=== PATIENT | female | born 1945 | race Caucasian/White ===

== ENCOUNTER → 2016-11-22 | Outpatient (CLI) | payer MEDICARE, BC ==
[~2016-11-22] VITALS: Ht 154.9 cm; Wt 49.0 kg
[2016-11-22] VITALS (7 sets, daily range): BP systolic 90–114; BP diastolic 44–62
[~2016-11-22] MED LIST: ALPR0.5T6 PO; AMLO5TAB2 PO; ASPI-482 PO; ATEN50TA PO; BIMA2.5D EACHEYE; CEFAZOLIN 1GM IVPB FOR OMNI 50 ML IV ONE; CELE400C PO; CHOL10003 PO; DOCU-27 PO; DULO30CA2 PO; FENT1PAT15 TP; FENTANYL PF 250 MCG/5 ML VIAL. IV ONE; FENTANYL PF 250 MCG/5 ML VIAL. ONE; HYDR25TA9 PO; KETOROLAC TROMETHAMINE 30 MG/ML SYRINGE. IV PRN; LIDO700A4 TP; LIDOCAINE 1% / SOD BICARB 8.4% 20 ML VIAL. IJ ONE; LOSA100T6 PO; MIDAZOLAM HCL/PF 5 MG/5 ML VIAL IV ONE; MIDAZOLAM HCL/PF 5 MG/5 ML VIAL ONE; OXYC-323 PO; OXYC5TAB PO; PRED-220 PO; SENN-37 PO; SIMV40TA PO; TIMO5DRO5 EACHEYE; TIMO5DRO5 OP; TIMO5SOL4 OP; TOFA5TAB PO; VENTOLIN HFA18 GM INH
[2016-11-22 09:06] LABS: BASO % 0 % (0-3); EOS % 1 % (0-3); HEMOGLOBIN 12.1 g/dL (12.0-15.5); LYMPH # 0.4 x10^3/uL (1.0-4.8); LYMPH % 4 % (24-48); MEAN CORPUSCULAR HEMOGLOBIN 29 pg (25-35); MEAN CORPUSCULAR HGB CONC 34 g/dL (31-37); MEAN CORPUSCULAR VOLUME 87 fL (79-100); MONO % 8 % (0-9); NEUT % 88 % (31-73); PLATELET COUNT 333 x10^3/uL (140-400); RED BLOOD COUNT 4.13 x10^6/uL (3.50-5.40); RED CELL DISTRIBUTION WIDTH 14.5 % (11.5-14.5); WHITE BLOOD COUNT 10.4 x10^3/uL (4.0-11.0)
[2016-11-22 09:15] LABS: PROTHROMBIN TIME PATIENT 12.6 SEC (11.7-14.0)
[2016-11-22 09:19] LABS: CALCIUM 9.2 mg/dL (8.5-10.1); GFR 54.8; POTASSIUM 3.8 mmol/L (3.5-5.1)
[2016-11-22 10:13] LABS: % BASOS 1 % (0-3)
[2016-11-22 10:14] LABS: PLT ESTIMATE ADEQUATE (ADEQUATE)
--- NOTE | 2016-11-22 11:06 | PDOC ---
MODERATE SEDATION ASSESSMENT RISKS/ALTERNATIVES Risks/Alternatives Risks and alternatives of this type of sedation and procedure discussed with: RISK/ALTERNATIVES: Patient H & P ON CHART H & P H & P on chart and reviewed for co-morbid conditions and appropriate labs. H&P ON CHART: Yes STATUS PREG STATUS ASSESSED: N/A MEDS/ALLERGIES REVIEWED Meds/Allergies Reviewed Medications and Allergies including time and route of recently administered narcotics and sedatives. MEDS/ALLERGIES REVIEWED: Yes ASA RATING ASA RATING: III AIRWAY ASSESSMENT Airway Assessment Airway patency, oral function limitations, presence of caps, crowns, dentures, partials, and ability to extend neck assessed. AIRWAY ASSESSMENT: Yes MALLAMPATI SCORE MALLAMPATI SCORE: II PRE-SEDATION ASSESSMENT PRE-SEDATION ASSESSMENT: Yes OTONIEL ESCOBEDO MD Nov 22, 2016 11:06
--- NOTE | 2016-11-22 11:19 | PDOC1 ---
History and Physical Date of Procedure Date of Admission 11/22/16 Procedure Procedure Fluoro guided T7 vertebral body drill assisted core biopsy. Fluoro guided T7 vertebroplasty. Indication Indication 71 YO female with T7 compression fracture and severe mid T spine pain. H/o fall and h/o lung cancer----osteoporotic fracture vs met disease Past Medical History Past Medical History See Nursing Pre Procedure PMH Past Surgical History Past Surgical History See Nursing Pre procedure PSH Current Medications Current Medications Current Medications Lidocaine/Sodium Bicarbonate (Buffered Lidocaine 1%) 20 ml STK-MED ONCE IJ ; Start 11/22/16 at 09:50; Stop 11/22/16 at 09:51; Status DC Midazolam HCl (Versed) 5 mg STK-MED ONCE .ROUTE ; Start 11/22/16 at 09:59; Stop 11/22/16 at 10:00; Status DC Fentanyl Citrate 250 mcg 250 mcg STK-MED ONCE .ROUTE ; Start 11/22/16 at 09:59; Stop 11/22/16 at 10:00; Status DC Cefazolin Sodium (Ancef 1gm Ivpb For Omni) 50 ml @ As Directed STK-MED ONCE IV ; Start 11/22/16 at 09:59; Stop 11/22/16 at 10:00; Status DC Lidocaine/Sodium Bicarbonate (Buffered Lidocaine 1%) 20 ml 1X ONCE IJ ; Start 11/22/16 at 10:45; Stop 11/22/16 at 10:46; Status DC Midazolam HCl (Versed) 5 mg 1X ONCE IV ; Start 11/22/16 at 10:45; Stop at 10:46; Status DC Fentanyl Citrate 250 mcg 250 mcg 1X ONCE IV ; Start 11/22/16 at 10:45; Stop 08/29 at 10:46; Status DC Cefazolin Sodium (Ancef 1gm Ivpb For Omni) 50 ml @ 100 mls/hr 1X ONCE IV ; Start 11/22/16 at 10:45; Stop 11/22/16 at 11:14 Active Scripts Active Colace (Docusate Sodium) 100 Mg Capsule 1 Cap PO QHS FENTANYL 25mcg/hr (Fentanyl) 1 Each Patch.td72 1 Patch TP Q3DAYS Percocet 5-325 Mg Tablet (Oxycodone/Acetaminophen) 1 Each Tablet 1 Tab PO TID PRN Reported Senokot-S Tablet (Sennosides/Docusate Sodium) 1 Each Tablet 1 Each PO DAILY Timolol Maleate 10 Ml Drops 10 Ml OP DAILY Lumigan (Bimatoprost) 2.5 Ml Drops 1 Drop EACHEYE QHS Amlodipine Besylate 5 Mg Tablet 5 Mg PO DAILY Cymbalta (Duloxetine Hcl) 30 Mg Capsule.dr 1 Cap PO DAILY Vitamin D3 (Cholecalciferol (Vitamin D3)) 1,000 Unit Tablet 2,000 Unit PO DAILY Ventolin Hfa Inhaler (Albuterol Sulfate) 18 Gm Hfa.aer.ad 2 Puff INH Q4HRS Alprazolam 0.5 Mg Tablet 1 Tab PO QIDPRN PRN Aspir 81 (Aspirin) 81 Mg Tablet.dr 1 Tab PO DAILY Zocor (Simvastatin) 40 Mg Tablet 1 Tab PO DAILY Atenolol 50 Mg Tablet 1 Tab PO BID Losartan Potassium 100 Mg Tablet 1 Tab PO DAILY Allergies Allergies: Coded Allergies: azithromycin (Verified Allergy, Severe, Anaphylaxis, 09/26/14) erythromycin base (Verified Allergy, Severe, Anaphylaxis, 09/26/14) iodine (Verified Allergy, Severe, SWELLING, SOA, THROAT CLOSES UP, ) oxytetracycline (Verified Allergy, Severe, Anaphylaxis, 09/26/14) tetracycline (Verified Allergy, Severe, Anaphylaxis, 09/26/14) codeine (Verified Allergy, Intermediate, 09/26/14) egg (Verified Allergy, Intermediate, hives, "eggs in vaccines", 09/26/14) morphine (Verified Allergy, Intermediate, 06/01/16) hallucinations Physical Exam Vital Signs Vital Signs Date Time Temp Pulse Resp B/P Pulse Ox O2 Delivery O2 Flow Rate FiO2 11/22/16 09:26 97.1 62 16 114/61 96 Room Air 97.1 Diagnostic Data/Imaging Images [facility] CT chest examinations from 09/21/16 and 10/31/16 reviewed, confirming recent T7 compression fracture Assessment Assessment Recent T7 compression fracture, likely osteoporotic, but possibly pathologic (h/ o lung cancer). Severe Mid T spine pain. Problems: Plan Plan Fluoro gudied T7 vertebroplasty + bone biopsy. OTONIEL ESCOBEDO MD Nov 22, 2016 11:19
--- NOTE | 2016-11-22 11:36 | PDOC ---
Exam Management Liaison Management Liaison Justin Dynamicist Dynamicist B Cates Pre-Procedure Diagnosis Pre-Procedure Diagnosis 71 YO female with moderate T7 compression fracture, with severe pain. H/o fall and H/o lung cancer. T7 fx likely osteoporotic, but pathologic due to met lung cancer possible. Post-Procedure Diagnosis Post-Procedure Diagnosis Same Procedure Performed Procedure Performed Fluoro guided T7 vertebral body drill assisted core bx. Fluoro guided T7 vertebroplasty Type of Anesthesia Type of Anesthesia Local + Mod sedation Estimated Blood Loss EBL: Minimal Specimens Specimans 1 11G core bx sample to path in formalin Condition of Patient Condition of Patient Stable. No apparent compication, Disposition Disposition Home from [facility] post recovery, if no problems. F/u with referring MD. Full report to follow. OTONIEL ESCOBEDO MD Nov 22, 2016 11:36
--- NOTE | 2016-11-22 16:35 | RAD ---
Fluoroscopy guided T7 whole-body bone biopsy Fluoro guided T7 Vertebroplasty Indication: 8-year-old female with severe mid thoracic back pain and with history of lung cancer and with recent history of fall. Review of [facility] CT chest studies from 07/29 and 10/31/2016 revealed interval appearance of moderate T7 vertebral body compression. Given its patient's history, this fracture is not most likely osteoporotic/posttraumatic in nature. However, pathologic fracture secondary to lung cancer cannot be entirely excluded. Fluoroscopy guided T7 vertebral body biopsy for tissue diagnosis and fluoroscopy guided T7 vertebroplasty for pain relief are considered indicated. Fluoro time: 21.3 minutes Kerma-Area Product: 22 Gycm2 Moderate sedation: 42 minutes moderate sedation was provided utilizing a total of 3.5 mg percent and 175 mcg fentanyl, IV. The patient was appropriately monitored by a qualified independent observer throughout the course of moderate sedation. Antibiotic: A single dose of Ancef was administered within 1 hour of the procedure start time. Consent: The procedure was explained in its entirety to the patient and/or the patient's designated dental detail representative by a member of the treatment team. This included a discussion of risks and benefits and commonly accepted alternatives to the procedure, as well as expected consequences of no treatment at all. Discussion of risks included, but was not limited to, those that are most frequent and those that are rare, but possibly severe or life-threatening, as well as the possibility of unforeseen complications. Sterility: All elements of maximal sterile barrier technique, including the use of a cap, mask, sterile gown, sterile gloves, large sterile sheet, appropriate hand hygiene, and 2% chlorhexidine for cutaneous antisepsis (or acceptable alternative antiseptic per current guidelines) were utilized. Procedure: Informed consent was obtained from the patient. She was placed prone on the angiography table. Midline midthoracic spine was prepped and draped in the usual sterile fashion, utilizing all elements of maximal sterile barrier technique, as described above. Conscious sedation was provided with IV Versed and Fentanyl. 1 gram Ancef was given IV, prophylactically. T7 vertebral body bone biopsy: Using aseptic technique, local anesthesia, and direct fluoroscopic guidance, the 11-gauge needle from the [employer] power drill assisted bone biopsy system was successfully advanced through posterior cortex of right T7 pedicle into right posterior T7 vertebral body. Subsequently, utilizing strict fluoroscopic guidance, a single 11-gauge power drill assisted core biopsy sample from the T7 vertebral body was obtained. The biopsy sample was submitted in formalin to pathology. Attention was then turned to T7 vertebroplasty. T7 vertebroplasty: Using aseptic technique, local anesthesia, and direct fluoroscopic guidance, an 11-gauge vertebroplasty needle was successfully advanced into anterior midline of T7 vertebral body, via right transpedicular approach. Contrast opacified polymethylmethacrylate was then slowly and carefully introduced through the vertebroplasty needle, under strict fluoroscopic control. There was resulting good filling of the central and right side of the T7 vertebral body, without significant extraosseous extravasation of opacified cement. However, there was a possibility of opacified cement within left T7 vertebral body. Therefore, using aseptic technique, local anesthesia, and direct fluoroscopic guidance, an additional 11-gauge vertebroplasty needle was successfully introduced into left mid T7 vertebral body, via left transpedicular access. Contrast opacified polymethylmethacrylate was slowly and carefully introduced through this needle, producing satisfactory contrast opacification of left side of the T7 vertebral body, without abnormal extraosseous extension. The vertebroplasty needles were removed and a sterile dressings were applied. Patient tolerated the procedure well, without apparent complication. Impression: 1. Successful, uneventful fluoroscopy guided power drill assisted core biopsy of the T7 vertebral body, as described. 2. Successful, uneventful fluoro guided T7 vertebroplasty, performed via bilateral trans pedicular approach, as described.
--- NOTE | 2016-11-23 14:51 | PATHOLOGY ---
PATHOLOGY REPORT * * * * * * * * FINAL DIAGNOSIS: Segment of bone, T-7 vertebral body fluoroscopic-guided core biopsy: - Focal fragmentation of bony trabeculae and reactive bone formation. COMMENT: Sections of the T-7 vertebral body fluoroscopic-guided core biopsy reveal a segment of bone showing focal fragmentation of bony trabeculae and reactive bone formation. There is hematopoietic cellular marrow present showing trilineage hematopoiesis. There is no evidence of metastatic carcinoma. (JPM:mgjennie; d/t: 11/23/16) REPORT ELECTRONICALLY SIGNED BY: Ad Fernández M.D. DATE/TIME: 11/23/2016 14:50 * * * * * * * * GROSS PATHOLOGY: The specimen is received in formalin labeled "Karen Landaverde, T11 bone biopsy". Received is a needle core of pink-yost bone measuring 0.9 cm in length by 0.3 cm in diameter. The specimen is submitted entirely in cassette A1, following decalcification. (CAA; 11/22/2016) INITIAL CPT CODE(S): A; 01163, 97227 Professional services performed by [facility] [place] [address] Technical services performed by [facility] at [address] [place] [address], [facility] [address], [place] [address]. SPECIMEN(S) RECEIVED: A.T7 vertebral body biopsy CLINICAL HISTORY: T7 compression-osteoporotic vs metastatic lung cancer, probably osteoporotic fracture, history of lung cancer PATIENT: KAREN LANDAVERDE /AGE: 5 1945 (Age: 71) PATIENT #: [id number] ALT CASE #: SPECIMEN COLLECTION DATE: 11/22/2016 SPECIMEN RECEIVED DATE: 11/22/2016 [facility] - [id number] [place] [address] - PHONE: [phone] * * * END OF REPORT * * *
== END | disposition home or self-care (01) ==
LOC: INTRAD 08:26
PROVIDERS: ATTEND Internal Medicine Cardiovascular Disease
DX: G95.29 Other cord compression (principal); Z85.118 Personal history of other malignant neoplasm of bronchus and lung; I50.9 Heart failure, unspecified; E78.00 Pure hypercholesterolemia, unspecified; I10 Essential (primary) hypertension; J44.9 Chronic obstructive pulmonary disease, unspecified; Z90.710 Acquired absence of both cervix and uterus; N39.0 Urinary tract infection, site not specified; M19.90 Unspecified osteoarthritis, unspecified site; F41.9 Anxiety disorder, unspecified; F32.9 Major depressive disorder, single episode, unspecified; Z87.891 Personal history of nicotine dependence; F41.0 Panic disorder [episodic paroxysmal anxiety]
CPT/HCPCS: 22510; 36415; 80048; 85007; 85027; 85610; C1758; C1892; J0690; J2250; J3010; 88307; 88311

== ENCOUNTER → 2016-11-30 | Outpatient (CLI) | payer MEDICARE, BC ==
[2016-11-22 12:30] VITALS: BP 113/62
[~2016-11-30] MED LIST changes: -CEFAZOLIN 1GM IVPB FOR OMNI 50 ML IV ONE; -FENTANYL PF 250 MCG/5 ML VIAL. IV ONE; -FENTANYL PF 250 MCG/5 ML VIAL. ONE; -KETOROLAC TROMETHAMINE 30 MG/ML SYRINGE. IV PRN; -LIDOCAINE 1% / SOD BICARB 8.4% 20 ML VIAL. IJ ONE; -MIDAZOLAM HCL/PF 5 MG/5 ML VIAL IV ONE; -MIDAZOLAM HCL/PF 5 MG/5 ML VIAL ONE
--- NOTE | 2016-11-30 14:26 | RAD ---
Indication T7 compression fracture. Status post arthroplasty. AP and lateral views of the thoracic spine were obtained as well as a swimmer's note is made of a two-view examination of the chest prior to the kyphoplasty 10/20/2016. There is probable bony demineralization. Kyphoplasty changes are noted at T7. No complication is seen. An acute finding or unexpected finding in the thoracic spine is not seen. IMPRESSION: Kyphoplasty changes T7. No acute or unexpected finding seen
== END | disposition home or self-care (01) ==
LOC: RAD 13:29
PROVIDERS: ATTEND Radiology Diagnostic Radiology
DX: S22.068A Other fracture of T7-T8 thoracic vertebra, initial encounter for closed fracture (principal); X58.XXXA Exposure to other specified factors, initial encounter; Y93.89 Activity, other specified; Y92.89 Other specified places as the place of occurrence of the external cause; Y99.8 Other external cause status
CPT/HCPCS: 72072

== ENCOUNTER → 2017-03-22 | Outpatient (CLI) | payer MEDICARE, BC ==
[2016-11-22 12:30] VITALS: BP 113/62
[~2017-03-22] MED LIST changes: +IOHEXOL 240 MG/ML 50ML VIAL. IV ONE
--- NOTE | 2017-03-22 10:16 | RAD ---
Indication: Squamous cell carcinoma of the lung. Axial imaging through the chest, abdomen and pelvis was performed without intravenous contrast. Correlation is made with prior CT from 10/31/2016. CT chest: No axillary lymphadenopathy is seen. No definite hilar or mediastinal lymphadenopathy is detected. There is volume loss on the left. The area of consolidation in the anterior aspect of the left upper lobe appears smaller when compared with the exam from November 01, 2016. Previously noted irregular opacity along the lateral portion of the right upper lobe is also stable. The subpleural bullae or bleb in the right lower lobe is stable with some associated patchy parenchymal changes, perhaps atelectasis or scarring. There is some scarring or atelectasis in the left lower lobe posteriorly and left upper lobe as well. No new mass is seen. Postkyphoplasty changes in the midthoracic spine are noted since the prior exam. Impression: Overall stable to improved appearance of the chest when compared with exam from 10/31/2016. The area of parenchymal consolidation in the anterior left upper lobe has improved. No new abnormality is identified. CT abdomen and pelvis: No discrete liver mass is identified. The gallbladder is unremarkable. The pancreas and spleen are unremarkable. No adrenal mass is identified. The left kidney does contain a 2 to 3 mm nonobstructing calculus in the lower pole. The right kidney is unremarkable. Aorta is calcified but nonaneurysmal. The small and large bowel loops are normal caliber. There is no ascites. The bladder is unremarkable. No lymphadenopathy is seen. Impression: Nonobstructing calculus left kidney, lower pole. The study is otherwise unremarkable. There is no evidence of abdominal or pelvic metastatic disease. PQRS Compliance Statement: One or more of the following individualized dose reduction techniques were utilized for this examination: 1. Automated exposure control 2. Adjustment of the mA and/or kV according to patient size 3. Use of iterative reconstruction technique
== END | disposition home or self-care (01) ==
LOC: CT 10:33
PROVIDERS: ATTEND Internal Medicine Hematology & Oncology
DX: C34.92 Malignant neoplasm of unspecified part of left bronchus or lung (principal)
CPT/HCPCS: 71250; 74176

== ENCOUNTER → 2018-01-12 | Outpatient (CLI) | payer MEDICARE | END | disposition home or self-care (01) | LOC: CT 11:47 | DX: C34.92 Malignant neoplasm of unspecified part of left bronchus or lung (principal); J43.9 Emphysema, unspecified; I25.10 Atherosclerotic heart disease of native coronary artery without angina pectoris; N20.0 Calculus of kidney; Z98.890 Other specified postprocedural states | CPT/HCPCS: 71250 ==

== ENCOUNTER → 2018-02-08 | Outpatient (CLI) | payer MEDICARE | END | disposition home or self-care (01) | LOC: PETSC 08:23 | DX: C34.92 Malignant neoplasm of unspecified part of left bronchus or lung (principal) | CPT/HCPCS: 78815; A9552 ==

== ENCOUNTER 2018-02-16 06:53 | Outpatient (CLI) | payer MEDICARE ==
[2018-02-16 07:30] LABS: ADD MAN DIFF? NO
[2018-02-16 07:38] LABS: BASO # 0.1 x10^3/uL (0.0-0.2); BASO % 1 % (0-3); EOS # 0.1 x10^3/uL (0.0-0.7); EOS % 1 % (0-3); HEMATOCRIT 37.3 % (36.0-47.0); HEMOGLOBIN 12.2 g/dL (12.0-15.5); LYMPH # 0.9 x10^3/uL (1.0-4.8); LYMPH % 13 % (24-48); MEAN CORPUSCULAR HEMOGLOBIN 30 pg (25-35); MEAN CORPUSCULAR HGB CONC 33 g/dL (31-37); MEAN CORPUSCULAR VOLUME 90 fL (79-100); MONO % 14 % (0-9); NEUT % 71 % (31-73); PLATELET COUNT 338 x10^3/uL (140-400); RED BLOOD COUNT 4.12 x10^6/uL (3.50-5.40); RED CELL DISTRIBUTION WIDTH 13.5 % (11.5-14.5)
[2018-02-16 07:51] LABS: INR 0.9 (0.8-1.1)
[2018-02-16] MEDS ORDERED: LIDOCAINE WITH 8.4% SOD BICARB 3 ML DISP.SYRIN. (07:59)
[2018-02-16] MEDS ORDERED: MIDAZOLAM HCL/PF 2 MG/2 ML VIAL. (08:14)
[2018-02-16] MEDS ORDERED: fentaNYL PF VIAL 100 MCG/2 ML VIAL (08:14)
[2018-02-16] MEDS: LIDOCAINE WITH 8.4% SOD BICARB 3 ML DISP.SYRIN. IJ (09:22)
[2018-02-16] MEDS: MIDAZOLAM HCL/PF 2 MG/2 ML VIAL. IV (09:23)
[2018-02-16] MEDS: fentaNYL PF VIAL 100 MCG/2 ML VIAL IV (09:23)
[2018-02-16] MEDS: HEPARIN PF 500 UNIT/5 ML DISP.SYRIN. IV (14:03)
== END 2018-02-16 13:35 | disposition home or self-care (01) ==
LOC: INTRAD 06:53
DX: R91.1 Solitary pulmonary nodule (principal); I25.2 Old myocardial infarction; E78.00 Pure hypercholesterolemia, unspecified; I10 Essential (primary) hypertension; J44.9 Chronic obstructive pulmonary disease, unspecified; M19.90 Unspecified osteoarthritis, unspecified site; F41.0 Panic disorder [episodic paroxysmal anxiety]; F32.9 Major depressive disorder, single episode, unspecified; F41.9 Anxiety disorder, unspecified; Z79.01 Long term (current) use of anticoagulants; Z79.82 Long term (current) use of aspirin; Z88.1 Allergy status to other antibiotic agents; Z88.6 Allergy status to analgesic agent; Z91.012 Allergy to eggs; Z91.018 Allergy to other foods; Z88.7 Allergy status to serum and vaccine; Z98.42 Cataract extraction status, left eye; Z98.41 Cataract extraction status, right eye; Z85.118 Personal history of other malignant neoplasm of bronchus and lung; Z90.710 Acquired absence of both cervix and uterus; Z87.891 Personal history of nicotine dependence; Z82.49 Family history of ischemic heart disease and other diseases of the circulatory system; Z82.3 Family history of stroke
CPT/HCPCS: 32405; 36415; 71046; 77012; 85025; 85610; 99152; 99153; J2250; J3010

== ENCOUNTER 2018-04-13 16:06 | Emergency (ER) | payer MEDICARE ==
[2018-04-13] MEDS: NEOMY/BACITR/POLYMYXIN OINT PACKET. TP (16:48)
[2018-04-13] MEDS: LIDOCAINE 1%/EPI 1:100,000 20 ML VIAL. INJ (16:48)
== END 2018-04-13 18:15 | disposition home or self-care (01) ==
LOC: ER 18:15
DX: S51.811A Laceration without foreign body of right forearm, initial encounter (principal); Z88.1 Allergy status to other antibiotic agents; Z88.5 Allergy status to narcotic agent; Z88.8 Allergy status to other drugs, medicaments and biological substances; Z91.041 Radiographic dye allergy status; Z91.012 Allergy to eggs; Y28.8XXA Contact with other sharp object, undetermined intent, initial encounter; Y93.89 Activity, other specified; Y99.8 Other external cause status; Y92.89 Other specified places as the place of occurrence of the external cause
CPT/HCPCS: 12005; 12006; 73090; 99284-25; J3490

== ENCOUNTER 2018-05-31 13:58 | Emergency (ER) | payer MEDICARE ==
[2018-05-31 14:39] LABS: BILIRUBIN,URINE NEGATIVE (NEG); CLARITY,URINE CLEAR; COLOR,URINE YELLOW; GLUCOSE,URINE NEGATIVE (NEG); NITRITE,URINE NEGATIVE (NEG); PH,URINE 6.5; PROTEIN,URINE NEGATIVE (NEG-TRACE); UROBILINOGEN,URINE 0.2 mg/dL (0.2 mg/dL)
[2018-05-31 14:42] LABS: ADD MAN DIFF? YES; BASO # 0.1 x10^3/uL (0.0-0.2); BASO % 1 % (0-3); EOS % 0 % (0-3); HEMATOCRIT 40.1 % (36.0-47.0); HEMOGLOBIN 13.5 g/dL (12.0-15.5); LYMPH # 0.6 x10^3/uL (1.0-4.8); LYMPH % 7 % (24-48); MEAN CORPUSCULAR HEMOGLOBIN 30 pg (25-35); MEAN CORPUSCULAR HGB CONC 34 g/dL (31-37); MEAN CORPUSCULAR VOLUME 88 fL (79-100); MONO # 0.4 x10^3/uL (0.0-1.1); MONO % 4 % (0-9); NEUT # 8.9 x10^3uL (1.8-7.7); NEUT % 89 % (31-73); PLATELET COUNT 342 x10^3/uL (140-400); RED BLOOD COUNT 4.55 x10^6/uL (3.50-5.40); RED CELL DISTRIBUTION WIDTH 14.4 % (11.5-14.5)
[2018-05-31 14:55] LABS: ANION GAP 11 (6-14); BLOOD UREA NITROGEN 12 mg/dL (7-20); BUN/CREATININE RATIO 11 (6-20); CALCIUM 9.7 mg/dL (8.5-10.1); CARBON DIOXIDE 27 mmol/L (21-32); CHLORIDE 96 mmol/L (98-107); CREATININE 1.1 mg/dL (0.6-1.0); GFR 48.8; GLUCOSE 135 mg/dL (70-99); POTASSIUM 3.6 mmol/L (3.5-5.1); SODIUM 134 mmol/L (136-145)
[2018-05-31 14:56] LABS: AMYLASE 64 U/L (25-115)
[2018-05-31 15:03] LABS: ALBUMIN 3.5 g/dL (3.4-5.0); ALBUMIN/GLOBULIN RATIO 0.8 (1.0-1.7); ALK PHOS 130 U/L (46-116); ALT (SGPT) 19 U/L (14-59); AST (SGOT) 26 U/L (15-37); LIPASE 270 U/L (73-393); TOTAL BILIRUBIN 0.9 mg/dL (0.2-1.0); TOTAL PROTEIN 7.7 g/dL (6.4-8.2)
[2018-05-31 15:04] LABS: AMORPHOUS SEDIMENT,UR PRESENT /HPF; BACTERIA,URINE FEW /HPF (0-FEW); RBC,URINE 0 /HPF (0-2); SQUAMOUS EPITHELIAL CELL,UR MOD /LPF
[2018-05-31] MEDS: ONDANSETRON PF 4 MG/2 ML VIAL. IV (15:24)
[2018-05-31] MEDS: IV NORMAL SALINE 1000ML BAG 1,000 ML IV (15:24)
[2018-05-31 16:29] LABS: % BANDS 2 % (0-9); % LYMPHS 5 % (24-48); % SEGS 93 % (35-66); PLT ESTIMATE ADEQUATE (ADEQUATE)
== END 2018-05-31 17:40 | disposition home or self-care (01) ==
LOC: ER 13:58
DX: R10.13 Epigastric pain (principal); R19.7 Diarrhea, unspecified; R11.0 Nausea; I25.2 Old myocardial infarction; Z90.710 Acquired absence of both cervix and uterus; Z88.1 Allergy status to other antibiotic agents; Z88.5 Allergy status to narcotic agent; Z88.6 Allergy status to analgesic agent; Z91.041 Radiographic dye allergy status; Z91.012 Allergy to eggs; Z88.8 Allergy status to other drugs, medicaments and biological substances
CPT/HCPCS: 36415; 76705; 80053; 81001; 82150; 83690; 85007; 85025; 96361; 96374; 99285-25; J2405; J7030

== ENCOUNTER 2018-06-05 13:56 | Inpatient (IN) | payer MEDICARE ==
[2018-06-05 14:18] LABS: BASO % 0 % (0-3); EOS % 0 % (0-3); HEMATOCRIT 38.9 % (36.0-47.0); HEMOGLOBIN 13.2 g/dL (12.0-15.5); LYMPH # 0.7 x10^3/uL (1.0-4.8); LYMPH % 7 % (24-48); MEAN CORPUSCULAR HEMOGLOBIN 30 pg (25-35); MEAN CORPUSCULAR HGB CONC 34 g/dL (31-37); MEAN CORPUSCULAR VOLUME 88 fL (79-100); MONO # 0.4 x10^3/uL (0.0-1.1); MONO % 4 % (0-9); NEUT # 9.6 x10^3uL (1.8-7.7); NEUT % 89 % (31-73); PLATELET COUNT 326 x10^3/uL (140-400); RED BLOOD COUNT 4.43 x10^6/uL (3.50-5.40); RED CELL DISTRIBUTION WIDTH 14.3 % (11.5-14.5); WHITE BLOOD COUNT 10.8 x10^3/uL (4.0-11.0)
[2018-06-05 14:21] LABS: ADD MAN DIFF? YES
[2018-06-05 14:29] LABS: INR 0.9 (0.8-1.1); PARTIAL THROMBOPLASTIN TIME 26 SEC (24-38); PROTHROMBIN TIME PATIENT 12.1 SEC (11.7-14.0)
[2018-06-05] MEDS: IV NORMAL SALINE 1000ML BAG 1,000 ML IV ×3 (14:32→20:40)
[2018-06-05] MEDS: FAMOTIDINE 20 MG/2 ML VIAL IVP (14:32)
[2018-06-05 14:34] LABS: ANION GAP 7 (6-14); BLOOD UREA NITROGEN 13 mg/dL (7-20); BUN/CREATININE RATIO 13 (6-20); CALCIUM 9.9 mg/dL (8.5-10.1); CARBON DIOXIDE 32 mmol/L (21-32); CHLORIDE 98 mmol/L (98-107); GFR 54.5; GLUCOSE 133 mg/dL (70-99); POTASSIUM 3.5 mmol/L (3.5-5.1); SODIUM 137 mmol/L (136-145)
[2018-06-05 14:46] LABS: ALBUMIN 3.4 g/dL (3.4-5.0); ALBUMIN/GLOBULIN RATIO 0.8 (1.0-1.7); ALK PHOS 122 U/L (46-116); ALT (SGPT) 21 U/L (14-59); AST (SGOT) 24 U/L (15-37); MAGNESIUM 1.7 mg/dL (1.8-2.4); TOTAL BILIRUBIN 0.7 mg/dL (0.2-1.0); TOTAL PROTEIN 7.7 g/dL (6.4-8.2)
[2018-06-05 14:47] LABS: TROPONINI < 0.017 ng/mL (0.000-0.055)
[2018-06-05 14:48] LABS: CKMB MASS 1.1 ng/mL (0.0-3.6); CREATINE KINASE 39 U/L (26-192)
[2018-06-05 15:03] LABS: LIPASE 3120 U/L (73-393)
[2018-06-05 16:29] LABS: BILIRUBIN,URINE NEGATIVE (NEG); CLARITY,URINE CLEAR; COLOR,URINE YELLOW; GLUCOSE,URINE NEGATIVE (NEG); NITRITE,URINE NEGATIVE (NEG); PH,URINE 6.5; PROTEIN,URINE NEGATIVE (NEG-TRACE); UROBILINOGEN,URINE 0.2 mg/dL (0.2 mg/dL)
[2018-06-05 16:46] LABS: RBC,URINE OCC /HPF (0-2)
[2018-06-05 16:47] LABS: BACTERIA,URINE 0 /HPF (0-FEW); SQUAMOUS EPITHELIAL CELL,UR OCC /LPF; WBC,URINE 0 /HPF (0-4)
[2018-06-05 17:30] LABS: % BANDS 3 % (0-9); % LYMPHS 5 % (24-48); % MONOS 2 % (0-10); % SEGS 90 % (35-66)
[2018-06-05 17:31] LABS: PLT ESTIMATE ADEQUATE (ADEQUATE)
[2018-06-05] MEDS: fentaNYL PF VIAL 100 MCG/2 ML VIAL IV (18:04)
[2018-06-06] MEDS: IV NORMAL SALINE 1000ML BAG 1,000 ML IV ×2 (06:20→17:05)
[2018-06-06] MEDS: ONDANSETRON PF 4 MG/2 ML VIAL. IV (07:14)
[2018-06-06 11:33] LABS: ADD MAN DIFF? NO; BASO # 0.1 x10^3/uL (0.0-0.2); BASO % 1 % (0-3); EOS # 0.1 x10^3/uL (0.0-0.7); EOS % 1 % (0-3); HEMATOCRIT 39.4 % (36.0-47.0); HEMOGLOBIN 13.6 g/dL (12.0-15.5); LYMPH # 1.2 x10^3/uL (1.0-4.8); LYMPH % 12 % (24-48); MEAN CORPUSCULAR HEMOGLOBIN 30 pg (25-35); MEAN CORPUSCULAR HGB CONC 35 g/dL (31-37); MEAN CORPUSCULAR VOLUME 87 fL (79-100); MONO # 1.1 x10^3/uL (0.0-1.1); MONO % 11 % (0-9); NEUT # 7.8 x10^3uL (1.8-7.7); NEUT % 75 % (31-73); PLATELET COUNT 340 x10^3/uL (140-400); RED BLOOD COUNT 4.51 x10^6/uL (3.50-5.40); RED CELL DISTRIBUTION WIDTH 14.2 % (11.5-14.5); WHITE BLOOD COUNT 10.3 x10^3/uL (4.0-11.0)
[2018-06-06 12:00] LABS: ALBUMIN 3.4 g/dL (3.4-5.0); ALBUMIN/GLOBULIN RATIO 0.8 (1.0-1.7); ALK PHOS 123 U/L (46-116); ALT (SGPT) 18 U/L (14-59); AMYLASE 70 U/L (25-115); ANION GAP 10 (6-14); AST (SGOT) 21 U/L (15-37); BLOOD UREA NITROGEN 9 mg/dL (7-20); BUN/CREATININE RATIO 11 (6-20); CALCIUM 8.7 mg/dL (8.5-10.1); CARBON DIOXIDE 28 mmol/L (21-32); CHLORIDE 100 mmol/L (98-107); CREATININE 0.8 mg/dL (0.6-1.0); GFR 70.5; GLUCOSE 97 mg/dL (70-99); LIPASE 385 U/L (73-393); POTASSIUM 3.2 mmol/L (3.5-5.1); SODIUM 138 mmol/L (136-145); TOTAL BILIRUBIN 0.8 mg/dL (0.2-1.0); TOTAL PROTEIN 7.5 g/dL (6.4-8.2)
[2018-06-06 12:57] LABS: CHOLESTEROL 205 mg/dL (0-200); HDLC 53 mg/dL (40-60); LDLC 107 mg/dL (0-100); NON-HDL CHOLESTEROL 152 mg/dL (0-129); TRIGLYCERIDES 223 mg/dL (0-150); VLDLC 45 mg/dL (0-40)
[2018-06-06 12:59] LABS: CHOLESTEROL/HDL RATIO 3.9
[2018-06-06] MEDS: ASPIRIN ENTERIC COATED 81 MG TABLET.DR. PO (15:27)
[2018-06-06] MEDS: LOSARTAN POTASSIUM 50 MG TABLET. PO (15:27)
[2018-06-06] MEDS: ALPRAZolam 0.5 MG TABLET PO ×2 (15:28→23:00)
[2018-06-06] MEDS: amLODIPine BESYLATE 5 MG TABLET PO (15:28)
[2018-06-06] MEDS: predniSONE 10 MG TABLET PO (15:28)
[2018-06-06] MEDS: BRIMONIDINE 0.2% OPHTH SOLUTION 5ML BOTTLE. OU (20:39)
[2018-06-06] MEDS: TIMOLOL 0.5% OPHTH SOLUTION 5ML BOTTLE. OU (20:40)
[2018-06-06] MEDS: LATANOPROST 0.005% OPHTH SOLUTION 2.5ML BOTTLE. OU (20:40)
[2018-06-06] MEDS: FAMOTIDINE 20 MG TABLET. PO (20:41)
[2018-06-06] MEDS: DULoxetine HCL 30 MG CAPSULE.DR PO (20:41)
[2018-06-06] MEDS: ATENOLOL 50 MG TABLET. PO (20:41)
[2018-06-06] MEDS: ATORVASTATIN CALCIUM 20 MG TABLET PO (20:41)
[2018-06-07] MEDS: IV NORMAL SALINE 1000ML BAG 1,000 ML IV ×3 (02:00→17:37)
[2018-06-07] MEDS: ONDANSETRON PF 4 MG/2 ML VIAL. IV (08:24)
[2018-06-07] MEDS: DULoxetine HCL 30 MG CAPSULE.DR PO ×3 (08:30→21:48)
[2018-06-07] MEDS: CHOLECALCIFEROL (VITAMIN D3) 1,000 UNIT TABLET PO (08:30)
[2018-06-07] MEDS: ALPRAZolam 0.5 MG TABLET PO ×3 (08:30→21:52)
[2018-06-07] MEDS: ASPIRIN ENTERIC COATED 81 MG TABLET.DR. PO (08:30)
[2018-06-07] MEDS: predniSONE 10 MG TABLET PO (08:31)
[2018-06-07] MEDS: ATENOLOL 50 MG TABLET. PO ×2 (08:31→21:47)
[2018-06-07] MEDS: LOSARTAN POTASSIUM 50 MG TABLET. PO (08:31)
[2018-06-07] MEDS: amLODIPine BESYLATE 5 MG TABLET PO (08:32)
[2018-06-07] MEDS: TIMOLOL 0.5% OPHTH SOLUTION 5ML BOTTLE. OU ×2 (11:35→21:00)
[2018-06-07] MEDS: BRIMONIDINE 0.2% OPHTH SOLUTION 5ML BOTTLE. OU ×2 (11:36→21:00)
[2018-06-07 21:15] LABS: IGG1 463 mg/dL (248-810); IGG2 250 mg/dL (130-555); IGG3 81 mg/dL (15-102); IGG4 57 mg/dL (2-96); TOTAL IGG 697 mg/dL (700-1600)
[2018-06-07] MEDS: FAMOTIDINE 20 MG TABLET. PO (21:47)
[2018-06-07] MEDS: ATORVASTATIN CALCIUM 20 MG TABLET PO (21:48)
[2018-06-07] MEDS: LATANOPROST 0.005% OPHTH SOLUTION 2.5ML BOTTLE. OU (21:48)
[2018-06-08] MEDS: IV NORMAL SALINE 1000ML BAG 1,000 ML IV ×2 (04:14→16:55)
[2018-06-08] MEDS: ALPRAZolam 0.5 MG TABLET PO ×3 (05:04→22:44)
[2018-06-08 05:22] LABS: CA 19-9 170 U/mL (0-35)
[2018-06-08 05:40] LABS: ADD MAN DIFF? NO
[2018-06-08 05:43] LABS: BASO % 0 % (0-3); EOS # 0.1 x10^3/uL (0.0-0.7); EOS % 2 % (0-3); HEMATOCRIT 37.8 % (36.0-47.0); HEMOGLOBIN 12.8 g/dL (12.0-15.5); LYMPH # 0.9 x10^3/uL (1.0-4.8); LYMPH % 16 % (24-48); MEAN CORPUSCULAR HEMOGLOBIN 30 pg (25-35); MEAN CORPUSCULAR HGB CONC 34 g/dL (31-37); MEAN CORPUSCULAR VOLUME 88 fL (79-100); MONO # 0.9 x10^3/uL (0.0-1.1); MONO % 14 % (0-9); NEUT # 4.2 x10^3uL (1.8-7.7); NEUT % 68 % (31-73); PLATELET COUNT 306 x10^3/uL (140-400); RED CELL DISTRIBUTION WIDTH 14.4 % (11.5-14.5); WHITE BLOOD COUNT 6.1 x10^3/uL (4.0-11.0)
[2018-06-08 06:06] LABS: ANION GAP 8 (6-14); BLOOD UREA NITROGEN 11 mg/dL (7-20); CALCIUM 8.6 mg/dL (8.5-10.1); CARBON DIOXIDE 28 mmol/L (21-32); CHLORIDE 105 mmol/L (98-107); CREATININE 0.8 mg/dL (0.6-1.0); GFR 70.5; GLUCOSE 85 mg/dL (70-99); POTASSIUM 3.2 mmol/L (3.5-5.1); SODIUM 141 mmol/L (136-145)
[2018-06-08] MEDS: ATENOLOL 50 MG TABLET. PO ×2 (09:00→21:21)
[2018-06-08] MEDS: DULoxetine HCL 30 MG CAPSULE.DR PO ×3 (09:00→12:20)
[2018-06-08] MEDS: ONDANSETRON PF 4 MG/2 ML VIAL. IV ×2 (09:05→16:54)
[2018-06-08] MEDS: TIMOLOL 0.5% OPHTH SOLUTION 5ML BOTTLE. OU ×2 (12:20→21:00)
[2018-06-08] MEDS: BRIMONIDINE 0.2% OPHTH SOLUTION 5ML BOTTLE. OU ×2 (12:20→21:00)
[2018-06-08] MEDS: SINCALIDE 0.9 MCG in IV NORMAL SALINE 50ML 30 ML IV (15:16)
[2018-06-08] MEDS: LOSARTAN POTASSIUM 50 MG TABLET. PO (15:24)
[2018-06-08] MEDS: CHOLECALCIFEROL (VITAMIN D3) 1,000 UNIT TABLET PO (15:24)
[2018-06-08] MEDS: predniSONE 10 MG TABLET PO (15:24)
[2018-06-08] MEDS: ASPIRIN ENTERIC COATED 81 MG TABLET.DR. PO (15:27)
[2018-06-08] MEDS: amLODIPine BESYLATE 5 MG TABLET PO (15:27)
[2018-06-08] MEDS: ATORVASTATIN CALCIUM 20 MG TABLET PO (21:20)
[2018-06-08] MEDS: FAMOTIDINE 20 MG TABLET. PO (21:20)
[2018-06-08] MEDS: LATANOPROST 0.005% OPHTH SOLUTION 2.5ML BOTTLE. OU (21:21)
[2018-06-09] MEDS: IV NORMAL SALINE 1000ML BAG 1,000 ML IV ×3 (02:58→20:39)
[2018-06-09] MEDS: ALPRAZolam 0.5 MG TABLET PO ×2 (08:42→16:01)
[2018-06-09] MEDS: ATENOLOL 50 MG TABLET. PO ×2 (08:42→20:36)
[2018-06-09] MEDS: ASPIRIN ENTERIC COATED 81 MG TABLET.DR. PO (08:42)
[2018-06-09] MEDS: amLODIPine BESYLATE 5 MG TABLET PO (08:42)
[2018-06-09] MEDS: LOSARTAN POTASSIUM 50 MG TABLET. PO (08:43)
[2018-06-09] MEDS: CHOLECALCIFEROL (VITAMIN D3) 1,000 UNIT TABLET PO (08:43)
[2018-06-09] MEDS: predniSONE 10 MG TABLET PO (08:43)
[2018-06-09] MEDS: BRIMONIDINE 0.2% OPHTH SOLUTION 5ML BOTTLE. OU ×2 (08:43→20:37)
[2018-06-09] MEDS: TIMOLOL 0.5% OPHTH SOLUTION 5ML BOTTLE. OU ×2 (08:43→20:37)
[2018-06-09] MEDS: FAMOTIDINE 20 MG TABLET. PO (20:35)
[2018-06-09] MEDS: ATORVASTATIN CALCIUM 20 MG TABLET PO (20:35)
[2018-06-09] MEDS: LATANOPROST 0.005% OPHTH SOLUTION 2.5ML BOTTLE. OU (20:37)
[2018-06-10] MEDS: ALPRAZolam 0.5 MG TABLET PO ×4 (03:10→21:53)
[2018-06-10] MEDS: predniSONE 10 MG TABLET PO (07:51)
[2018-06-10] MEDS: amLODIPine BESYLATE 5 MG TABLET PO (07:51)
[2018-06-10] MEDS: ASPIRIN ENTERIC COATED 81 MG TABLET.DR. PO (07:51)
[2018-06-10] MEDS: CHOLECALCIFEROL (VITAMIN D3) 1,000 UNIT TABLET PO (07:51)
[2018-06-10] MEDS: ATENOLOL 50 MG TABLET. PO ×2 (07:52→20:33)
[2018-06-10] MEDS: LOSARTAN POTASSIUM 50 MG TABLET. PO (07:52)
[2018-06-10] MEDS: IV NORMAL SALINE 1000ML BAG 1,000 ML IV ×2 (10:13→20:00)
[2018-06-10] MEDS: TIMOLOL 0.5% OPHTH SOLUTION 5ML BOTTLE. OU ×2 (10:13→20:37)
[2018-06-10] MEDS: BRIMONIDINE 0.2% OPHTH SOLUTION 5ML BOTTLE. OU ×2 (10:13→20:37)
[2018-06-10] MEDS: BISACODYL 10 MG SUPP.RECT. PR (16:21)
[2018-06-10] MEDS: POLYETHYLENE GLYCOL 3350 17 GM PACKET. PO (16:24)
[2018-06-10] MEDS: LATANOPROST 0.005% OPHTH SOLUTION 2.5ML BOTTLE. OU (20:31)
[2018-06-10] MEDS: ATORVASTATIN CALCIUM 20 MG TABLET PO (20:32)
[2018-06-10] MEDS: FAMOTIDINE 20 MG TABLET. PO (20:32)
[2018-06-11] MEDS: IV NORMAL SALINE 1000ML BAG 1,000 ML IV ×2 (05:59→16:00)
[2018-06-11] MEDS: amLODIPine BESYLATE 5 MG TABLET PO (07:59)
[2018-06-11] MEDS: ALPRAZolam 0.5 MG TABLET PO ×2 (07:59→14:33)
[2018-06-11] MEDS: ASPIRIN ENTERIC COATED 81 MG TABLET.DR. PO (07:59)
[2018-06-11] MEDS: ATENOLOL 50 MG TABLET. PO (08:00)
[2018-06-11] MEDS: CHOLECALCIFEROL (VITAMIN D3) 1,000 UNIT TABLET PO (08:00)
[2018-06-11] MEDS: LOSARTAN POTASSIUM 50 MG TABLET. PO (08:01)
[2018-06-11] MEDS: BRIMONIDINE 0.2% OPHTH SOLUTION 5ML BOTTLE. OU (08:02)
[2018-06-11] MEDS: predniSONE 10 MG TABLET PO (08:02)
[2018-06-11] MEDS: TIMOLOL 0.5% OPHTH SOLUTION 5ML BOTTLE. OU (08:02)
[2018-06-11] MEDS: FAMOTIDINE 20 MG TABLET. PO (18:34)
== END 2018-06-11 18:39 | disposition home or self-care (01) | DRG 440 ==
LOC: ER 13:56 → 5 SOUTH 16:35
DX: K85.90 Acute pancreatitis without necrosis or infection, unspecified (principal); J44.9 Chronic obstructive pulmonary disease, unspecified; K59.00 Constipation, unspecified; K21.9 Gastro-esophageal reflux disease without esophagitis; K76.0 Fatty (change of) liver, not elsewhere classified; N20.0 Calculus of kidney; E05.90 Thyrotoxicosis, unspecified without thyrotoxic crisis or storm; M19.90 Unspecified osteoarthritis, unspecified site; I10 Essential (primary) hypertension; H35.30 Unspecified macular degeneration; N32.89 Other specified disorders of bladder; R91.1 Solitary pulmonary nodule; S32.511D Fracture of superior rim of right pubis, subsequent encounter for fracture with routine healing; M81.0 Age-related osteoporosis without current pathological fracture; X58.XXXD Exposure to other specified factors, subsequent encounter; F41.9 Anxiety disorder, unspecified; F32.9 Major depressive disorder, single episode, unspecified; H40.9 Unspecified glaucoma; E78.5 Hyperlipidemia, unspecified; I25.10 Atherosclerotic heart disease of native coronary artery without angina pectoris; M06.9 Rheumatoid arthritis, unspecified; Z85.118 Personal history of other malignant neoplasm of bronchus and lung; Z90.2 Acquired absence of lung [part of]; I25.2 Old myocardial infarction; Z90.710 Acquired absence of both cervix and uterus; Z82.49 Family history of ischemic heart disease and other diseases of the circulatory system; Z88.5 Allergy status to narcotic agent; Z88.1 Allergy status to other antibiotic agents; Z91.041 Radiographic dye allergy status; Z91.012 Allergy to eggs; Z86.73 Personal history of transient ischemic attack (TIA), and cerebral infarction without residual deficits; Z92.21 Personal history of antineoplastic chemotherapy; Z92.3 Personal history of irradiation; Z90.49 Acquired absence of other specified parts of digestive tract; Z98.42 Cataract extraction status, left eye; Z98.41 Cataract extraction status, right eye; Z79.899 Other long term (current) drug therapy; Z79.82 Long term (current) use of aspirin
CPT/HCPCS: 36415; 74176; 78226; 78306; 80048; 80053; 80061; 81001; 82150; 82553; 82787; 83605; 83690; 83735; 84484; 85007; 85025; 85610; 85730; 86301; 93005; 96361; 96374; 96375; 99285; 99285-25; A9503; A9537; J2405; J2805; J3010; J7030; J7512; S0028

== ENCOUNTER 2018-07-02 13:17 | Inpatient (IN) | payer MEDICARE ==
[~2018-07-02] VITALS: Ht 147.3 cm; Wt 49.1 kg
[~2018-07-02 13:17] MED LIST changes: +ACET-704 PO; +BRIM5DRO2 OP; +CEPH500T PO; +DOCU-109 PO; -DOCU-27 PO; -IOHEXOL 240 MG/ML 50ML VIAL. IV ONE; +LATA2.5D3 EACHEYE; +NYST100054 PO; +ONDA4TAB10 SL; -OXYC5TAB PO; +OXYC5TAB95 PO; +PRED20TA PO; +SIMV40TA3 PO; +TIMO10DR5 EACHEYE
[2018-07-02] MEDS ORDERED: IV NORMAL SALINE 1000ML BAG 1,000 ML IV ONE (14:45)
[2018-07-02] MEDS ORDERED: fentaNYL PF VIAL 100 MCG/2 ML VIAL IV ONE (14:45)
[2018-07-02] MEDS ORDERED: ONDANSETRON PF 4 MG/2 ML VIAL. IV ONE (14:45)
[2018-07-02 14:47] LABS: BILIRUBIN,URINE NEGATIVE (NEG); CLARITY,URINE CLEAR; COLOR,URINE YELLOW; NITRITE,URINE NEGATIVE (NEG); PH,URINE 6.5; PROTEIN,URINE NEGATIVE (NEG-TRACE); UROBILINOGEN,URINE 0.2 mg/dL (0.2 mg/dL)
[2018-07-02 14:55] LABS: BASO % 0 % (0-3); EOS % 0 % (0-3); HEMATOCRIT 39.7 % (36.0-47.0); HEMOGLOBIN 13.4 g/dL (12.0-15.5); LYMPH # 0.6 x10^3/uL (1.0-4.8); LYMPH % 7 % (24-48); MEAN CORPUSCULAR HEMOGLOBIN 30 pg (25-35); MEAN CORPUSCULAR HGB CONC 34 g/dL (31-37); MEAN CORPUSCULAR VOLUME 89 fL (79-100); MONO # 0.4 x10^3/uL (0.0-1.1); MONO % 5 % (0-9); NEUT # 7.7 x10^3uL (1.8-7.7); NEUT % 88 % (31-73); PLATELET COUNT 300 x10^3/uL (140-400); RED BLOOD COUNT 4.44 x10^6/uL (3.50-5.40); RED CELL DISTRIBUTION WIDTH 15.1 % (11.5-14.5); WHITE BLOOD COUNT 8.7 x10^3/uL (4.0-11.0)
[2018-07-02 14:57] LABS: BACTERIA,URINE 0 /HPF (0-FEW); RBC,URINE 0 /HPF (0-2); SQUAMOUS EPITHELIAL CELL,UR OCC /LPF; WBC,URINE 0 /HPF (0-4)
[2018-07-02 15:02] LABS: CALCIUM 10.4 mg/dL (8.5-10.1); GFR 54.5; POTASSIUM 4.2 mmol/L (3.5-5.1)
[2018-07-02 15:08] LABS: ALBUMIN 3.7 g/dL (3.4-5.0); ALBUMIN/GLOBULIN RATIO 0.9 (1.0-1.7)
[2018-07-02 15:17] LABS: % BANDS 4 % (0-9); % LYMPHS 5 % (24-48); % MONOS 5 % (0-10); % SEGS 86 % (35-66); PLT ESTIMATE ADEQUATE (ADEQUATE)
[2018-07-02] MEDS ORDERED: HYDR-971 PO (17:05)
--- NOTE | 2018-07-02 17:05 | PHYS DOC ---
Past Medical History Past Medical History: Arthritis, Cancer, Depression, Gallstones, Lung Disease, Pancreatitis Additional Past Medical Histor: lung cancer, RA Past Surgical History: Appendectomy, Hysterectomy, Oophorectomy, Tonsillectomy , Other Additional Past Surgical Histo: LUNG REMOVAL Alcohol Use: None Drug Use: None Adult General Chief Complaint Chief Complaint: ABDOMINAL PAIN HPI HPI Patient is a 73 year old F who presents with upper abdominal pain. Patient reports she was admitted about 3 weeks ago for pancreatitis. She reports she had a thorough workup and felt much better when she went home. Her symptoms started again about 3 days ago. Not as severe as last time, but progressively worsening. Review of Systems Review of Systems Constitutional: Denies fever or chills [] Eyes: Denies change in visual acuity, redness, or eye pain [] HENT: Denies nasal congestion or sore throat [] Respiratory: Denies cough or shortness of breath [] Cardiovascular: No additional information not addressed in HPI [] GI: Denies abdominal pain, nausea, vomiting, bloody stools or diarrhea [] : Denies dysuria or hematuria [] Musculoskeletal: Denies back pain or joint pain [] Integument: Denies rash or skin lesions [] Neurologic: Denies headache, focal weakness or sensory changes [] Endocrine: Denies polyuria or polydipsia [] All other systems were reviewed and found to be within normal limits, except as documented in this note. Current Medications Current Medications Current Medications Medications (Trade) Dose Ordered Sig/Cammy Start Time Stop Time Status Last Admin Dose Admin Fentanyl Citrate (Fentanyl 2ml Vial) 50 mcg 1X ONCE 07/02/18 14:45 07/02/18 14:46 DC 07/02/18 14:51 50 MCG Morphine Sulfate (Morphine Sulfate) 4 mg PRN Q2HR PRN 07/02/18 17:45 07/03/18 17:44 Ondansetron HCl (Zofran) 4 mg PRN Q8HRS PRN 07/02/18 17:45 07/03/18 17:44 Sodium Chloride 1,000 ml @ 1,000 mls/hr 1X ONCE 07/02/18 14:45 07/02/18 15:44 DC 07/02/18 14:50 1,000 MLS/HR Allergies Allergies Allergies Coded Allergies Type Severity Reaction Last Updated Verified azithromycin Allergy Severe Anaphylaxis 09/26/14 Yes erythromycin base Allergy Severe Anaphylaxis 09/26/14 Yes iodine Allergy Severe SWELLING, SOA, THROAT CLOSES UP 09/26/14 Yes oxytetracycline Allergy Severe Anaphylaxis 09/26/14 Yes tetracycline Allergy Severe Anaphylaxis 09/26/14 Yes codeine Allergy Intermediate 09/26/14 Yes egg Allergy Intermediate hives, "eggs in vaccines" 09/26/14 Yes morphine Allergy Intermediate 06/01/16 Yes Physical Exam Physical Exam Constitutional: Well developed, well nourished, no acute distress, non-toxic appearance. [] HENT: Normocephalic, atraumatic Eyes: PERRLA, EOMI, conjunctiva normal, no discharge. [] Neck: Normal range of motion, no tenderness, supple, no stridor. [] Cardiovascular:Heart rate regular rhythm, no murmur [] Lungs & Thorax: Bilateral breath sounds clear to auscultation [] Abdomen: Bowel sounds normal, soft, upper abdominal tenderness Skin: Warm, dry, no erythema, no rash. [] Neurologic: Alert and oriented X 3, normal motor function, normal sensory function, no focal deficits noted. [] Psychologic: Affect normal, judgement normal, mood normal. [] Current Patient Data Vital Signs Vital Signs Date Time Temp Pulse Resp B/P (MAP) Pulse Ox O2 Delivery O2 Flow Rate FiO2 07/02/18 14:51 22 95 Room Air 07/02/18 14:06 98.2 134/63 (86) 98.2 Lab Values Laboratory Tests Test 07/02/18 14:15 07/02/18 14:43 Urine Collection Type Unknown Urine Color Yellow Urine Clarity Clear Urine pH 6.5 Urine Specific [place] 1.010 Urine Protein Negative mg/dL (NEG-TRACE) Urine Glucose (UA) Negative mg/dL (NEG) Urine Ketones (Stick) Negative mg/dL (NEG) Urine Blood Negative (NEG) Urine Nitrite Negative (NEG) Urine Bilirubin Negative (NEG) Urine Urobilinogen Dipstick 0.2 mg/dL (0.2 mg/dL) Urine Leukocyte Esterase Negative (NEG) Urine RBC 0 /HPF (0-2) Urine WBC 0 /HPF (0-4) Urine Squamous Epithelial Cells Occ /LPF Urine Bacteria 0 /HPF (0-FEW) White Blood Count 8.7 x10^3/uL (4.0-11.0) Red Blood Count 4.44 x10^6/uL (3.50-5.40) Hemoglobin 13.4 g/dL (12.0-15.5) Hematocrit 39.7 % (36.0-47.0) Mean Corpuscular Volume 89 fL (79-100) Mean Corpuscular Hemoglobin 30 pg (25-35) Mean Corpuscular Hemoglobin Concent 34 g/dL (31-37) Red Cell Distribution Width 15.1 % (11.5-14.5) H Platelet Count 300 x10^3/uL (140-400) Neutrophils (%) (Auto) 88 % (31-73) H Lymphocytes (%) (Auto) 7 % (24-48) L Monocytes (%) (Auto) 5 % (0-9) Eosinophils (%) (Auto) 0 % (0-3) Basophils (%) (Auto) 0 % (0-3) Neutrophils # (Auto) 7.7 x10^3uL (1.8-7.7) Lymphocytes # (Auto) 0.6 x10^3/uL (1.0-4.8) L Monocytes # (Auto) 0.4 x10^3/uL (0.0-1.1) Eosinophils # (Auto) 0.0 x10^3/uL (0.0-0.7) Basophils # (Auto) 0.0 x10^3/uL (0.0-0.2) Segmented Neutrophils % 86 % (35-66) H Band Neutrophils % 4 % (0-9) Lymphocytes % 5 % (24-48) L Monocytes % 5 % (0-10) Platelet Estimate Adequate (ADEQUATE) Sodium Level 138 mmol/L (136-145) Potassium Level 4.2 mmol/L (3.5-5.1) Chloride Level 101 mmol/L (98-107) Carbon Dioxide Level 28 mmol/L (21-32) Anion Gap 9 (6-14) Blood Urea Nitrogen 17 mg/dL (7-20) Creatinine 1.0 mg/dL (0.6-1.0) Estimated GFR (Cockcroft-Gault) 54.5 BUN/Creatinine Ratio 17 (6-20) Glucose Level 127 mg/dL (70-99) H Calcium Level 10.4 mg/dL (8.5-10.1) H Total Bilirubin 1.0 mg/dL (0.2-1.0) Aspartate Amino Transferase (AST) 22 U/L (15-37) Alanine Aminotransferase (ALT) 22 U/L (14-59) Alkaline Phosphatase 105 U/L (46-116) Total Protein 8.0 g/dL (6.4-8.2) Albumin 3.7 g/dL (3.4-5.0) Albumin/Globulin Ratio 0.9 (1.0-1.7) L Lipase 327 U/L (73-393) Laboratory Tests 07/02/18 14:43 Laboratory Tests 07/02/18 14:43 EKG EKG [] Radiology/Procedures Radiology/Procedures [] Course & Med Decision Making Course & Med Decision Making Pertinent Labs and Imaging studies reviewed. (See chart for details) d/w Margie from GI, recommend MRI abdomen with CA919 markers and endoscopic US ( which cannot be done at this facility). d/w Dr. Smith, ok for patient to go home with pain meds and outpatient MRI. Plan: norco rx, f/u with PCP, return precautions reviewed. 1730 -- Dr. Smith saw patient in ER and decided to admit. Plan: admit, MRI Dragon Disclaimer Dragon Disclaimer This electronic medical record was generated, in whole or in part, using a voice recognition dictation system. Departure Departure Impression: Primary Impression: Abdominal pain Disposition: 09 ADMITTED INPATIENT Admitting Physician: Kwaku Smith Condition: STABLE Referrals: KWAKU SMITH MD (PCP) VAHID FISCHER MD Patient Instructions: Abdominal Pain Scripts Hydrocodone/Apap 5-325 (NORCO 5-325 TABLET) 1 Each Tablet 1 TAB PO PRN Q6HRS PRN for PAIN, #20 TAB 0 Refills Prov: SCOTT PINEDO MANAGER MANAGING 07/02/18 Problem Qualifiers Primary Impression: Abdominal pain Abdominal location: upper abdomen, unspecified Qualified Codes: R10.10 - Upper abdominal pain, unspecified SCOTT PINEDO MANAGER MANAGING Jul 02, 2018 17:05
[2018-07-02] MEDS ORDERED: MORPHINE SULFATE 4 MG/ML VIAL. IV PRN (17:45)
[2018-07-02] MEDS ORDERED: ONDANSETRON PF 4 MG/2 ML VIAL. IV PRN (17:45)
[2018-07-02] MEDS ORDERED: fentaNYL PF VIAL 100 MCG/2 ML VIAL IV PRN (18:00)
--- NOTE | 2018-07-02 19:04 | EKG ---
[facility] [address] [place] [address] Test Date: 2018-07-02 Test Time: 15:04:07 Pat Name: FRANCISCO NEFF Department: Room: 432 1 Gender: F Lieutenant Governor: : 1945 Requested By: SCOTT PINEDO Order Number: [id number] Reading MD: José Antonio Blake MD Measurements Intervals [place] Rate: 66 P: 42 CA: 118 QRS: 15 QRSD: 80 T: 65 QT: 430 QTc: 453 Interpretive Statements SINUS RHYTHM Electronically Signed On 07-03-2018 12:10:12 CDT by José Antonio Blake MD
--- NOTE | 2018-07-02 19:27 | PDOC1 ---
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 She has been having lots of problems and 3 weeks ago she came in with abdominal pain and had a lipase of over 3000. She was admitted and GI saw her and she was eventually discharged home. The patient now returns with severe abdominal pain, nausea and vomiting and has her chronic dyspnea. She denies any chest pains. She denies any palpitations. Past Medical History Cardiovascular: CAD, HTN, [place] Pulmonary: COPD, Other GI: Constipation, GERD, Other Heme/Onc: No pertinent hx Hepatobiliary: No pertinent hx Psych: No pertinent hx Musculoskeletal: Osteoarthritis, Weakness Rheumatologic: Rheumatoid arthritis Infectious disease: No pertinent hx Renal/: No pertinent hx Endocrine: Hyperthyroidism Past Surgical History Past Surgical History: Hysterectomy Family History Family History: Cancer, Coronary Artery Disease, Other Social History ALCOHOL: none Drugs: None Current Problem List Problem List Problems Medical Problems: (1) Abdominal pain Status: Acute Current Medications Current Medications Current Medications Fentanyl Citrate (Fentanyl 2ml Vial) 50 mcg 1X ONCE IV Last administered on at 14:51; Start 07/02/18 at 14:45; Stop 07/02/18 at 14:46; Status DC Sodium Chloride 1,000 ml @ 1,000 mls/hr 1X ONCE IV Last administered on at 14:50; Start 07/02/18 at 14:45; Stop 07/02/18 at 15:44; Status DC Ondansetron HCl (Zofran) 4 mg 1X ONCE IV Last administered on 07/02/18at 14:51 ; Start 07/02/18 at 14:45; Stop 07/02/18 at 14:46; Status DC Ondansetron HCl (Zofran) 4 mg PRN Q8HRS PRN IV NAUSEA/VOMITING; Start 07/02/18 at 17:45; Stop 07/03/18 at 17:44 Morphine Sulfate (Morphine Sulfate) 4 mg PRN Q2HR PRN IV PAIN; Start 07/02/18 at 17:45; Stop 07/03/18 at 17:44; Status Cancel Fentanyl Citrate (Fentanyl 2ml Vial) 50 mcg PRN Q2HRS PRN IV pain; Start at 18:00 Active Scripts Active [place] 5-325 Tablet (Acetaminophen/Hydrocodone Bitart) 1 Each Tablet 1 Tab PO PRN Q6HRS PRN Reported Latanoprost 2.5 Ml Drops 1 Drop EACHEYE QHS Combigan Eye Drops (Brimonidine Tartrate/Timolol) 5 Ml Drops 5 Ml OP DAILY Prednisone 20 Mg Tablet 10 Mg PO DAILY Cymbalta (Duloxetine Hcl) 30 Mg Capsule.dr 1 Cap PO TID Simvastatin 40 Mg Tablet 1 Tab PO QHS Amlodipine Besylate 5 Mg Tablet 5 Mg PO DAILY Vitamin D3 (Cholecalciferol (Vitamin D3)) 1,000 Unit Tablet 2,000 Unit PO DAILY Alprazolam 0.5 Mg Tablet 1 Tab PO QIDPRN PRN Aspir 81 (Aspirin) 81 Mg Tablet.dr 1 Tab PO DAILY Atenolol 50 Mg Tablet 1 Tab PO BID Losartan Potassium 100 Mg Tablet 1 Tab PO DAILY Allergies Allergies: Coded Allergies: azithromycin (Verified Allergy, Severe, Anaphylaxis, 09/26/14) erythromycin base (Verified Allergy, Severe, Anaphylaxis, 09/26/14) iodine (Verified Allergy, Severe, SWELLING, SOA, THROAT CLOSES UP, ) oxytetracycline (Verified Allergy, Severe, Anaphylaxis, 09/26/14) tetracycline (Verified Allergy, Severe, Anaphylaxis, 09/26/14) codeine (Verified Allergy, Intermediate, 09/26/14) egg (Verified Allergy, Intermediate, hives, "eggs in vaccines", 09/26/14) morphine (Verified Allergy, Intermediate, 06/01/16) hallucinations Physical Exam General: Alert, Oriented X3, Cooperative HEENT: PERRLA Lungs: Other (breast sounds are decreased, some fine crackles over mid colon.) Heart: S1S2, RRR, other (no changes in murmur) Abdomen: Other (abdomen is soft bowel sounds are present there is diffuse tenderness of the abdomen.) Extremities: No edema Vitals Vitals Vital Signs Date Time Temp Pulse Resp B/P (MAP) Pulse Ox O2 Delivery O2 Flow Rate FiO2 07/02/18 14:51 22 95 Room Air 07/02/18 14:06 98.2 134/63 (86) 98.2 Labs Labs Laboratory Tests Test 07/02/18 14:15 07/02/18 14:43 Urine Collection Type Unknown Urine Color Yellow Urine Clarity Clear Urine pH 6.5 Urine Specific [place] 1.010 Urine Protein Negative mg/dL (NEG-TRACE) Urine Glucose (UA) Negative mg/dL (NEG) Urine Ketones (Stick) Negative mg/dL (NEG) Urine Blood Negative (NEG) Urine Nitrite Negative (NEG) Urine Bilirubin Negative (NEG) Urine Urobilinogen Dipstick 0.2 mg/dL (0.2 mg/dL) Urine Leukocyte Esterase Negative (NEG) Urine RBC 0 /HPF (0-2) Urine WBC 0 /HPF (0-4) Urine Squamous Epithelial Cells Occ /LPF Urine Bacteria 0 /HPF (0-FEW) White Blood Count 8.7 x10^3/uL (4.0-11.0) Red Blood Count 4.44 x10^6/uL (3.50-5.40) Hemoglobin 13.4 g/dL (12.0-15.5) Hematocrit 39.7 % (36.0-47.0) Mean Corpuscular Volume 89 fL (79-100) Mean Corpuscular Hemoglobin 30 pg (25-35) Mean Corpuscular Hemoglobin Concent 34 g/dL (31-37) Red Cell Distribution Width 15.1 % (11.5-14.5) Platelet Count 300 x10^3/uL (140-400) Neutrophils (%) (Auto) 88 % (31-73) Lymphocytes (%) (Auto) 7 % (24-48) Monocytes (%) (Auto) 5 % (0-9) Eosinophils (%) (Auto) 0 % (0-3) Basophils (%) (Auto) 0 % (0-3) Neutrophils # (Auto) 7.7 x10^3uL (1.8-7.7) Lymphocytes # (Auto) 0.6 x10^3/uL (1.0-4.8) Monocytes # (Auto) 0.4 x10^3/uL (0.0-1.1) Eosinophils # (Auto) 0.0 x10^3/uL (0.0-0.7) Basophils # (Auto) 0.0 x10^3/uL (0.0-0.2) Segmented Neutrophils % 86 % (35-66) Band Neutrophils % 4 % (0-9) Lymphocytes % 5 % (24-48) Monocytes % 5 % (0-10) Platelet Estimate Adequate (ADEQUATE) Sodium Level 138 mmol/L (136-145) Potassium Level 4.2 mmol/L (3.5-5.1) Chloride Level 101 mmol/L (98-107) Carbon Dioxide Level 28 mmol/L (21-32) Anion Gap 9 (6-14) Blood Urea Nitrogen 17 mg/dL (7-20) Creatinine 1.0 mg/dL (0.6-1.0) Estimated GFR (Cockcroft-Gault) 54.5 BUN/Creatinine Ratio 17 (6-20) Glucose Level 127 mg/dL (70-99) Calcium Level 10.4 mg/dL (8.5-10.1) Total Bilirubin 1.0 mg/dL (0.2-1.0) Aspartate Amino Transf (AST/SGOT) 22 U/L (15-37) Alanine Aminotransferase (ALT/SGPT) 22 U/L (14-59) Alkaline Phosphatase 105 U/L (46-116) Total Protein 8.0 g/dL (6.4-8.2) Albumin 3.7 g/dL (3.4-5.0) Albumin/Globulin Ratio 0.9 (1.0-1.7) Lipase 327 U/L (73-393) Laboratory Tests Test 07/02/18 14:15 07/02/18 14:43 Urine Collection Type Unknown Urine Color Yellow Urine Clarity Clear Urine pH 6.5 Urine Specific [place] 1.010 Urine Protein Negative mg/dL (NEG-TRACE) Urine Glucose (UA) Negative mg/dL (NEG) Urine Ketones (Stick) Negative mg/dL (NEG) Urine Blood Negative (NEG) Urine Nitrite Negative (NEG) Urine Bilirubin Negative (NEG) Urine Urobilinogen Dipstick 0.2 mg/dL (0.2 mg/dL) Urine Leukocyte Esterase Negative (NEG) Urine RBC 0 /HPF (0-2) Urine WBC 0 /HPF (0-4) Urine Squamous Epithelial Cells Occ /LPF Urine Bacteria 0 /HPF (0-FEW) White Blood Count 8.7 x10^3/uL (4.0-11.0) Red Blood Count 4.44 x10^6/uL (3.50-5.40) Hemoglobin 13.4 g/dL (12.0-15.5) Hematocrit 39.7 % (36.0-47.0) Mean Corpuscular Volume 89 fL (79-100) Mean Corpuscular Hemoglobin 30 pg (25-35) Mean Corpuscular Hemoglobin Concent 34 g/dL (31-37) Red Cell Distribution Width 15.1 % (11.5-14.5) Platelet Count 300 x10^3/uL (140-400) Neutrophils (%) (Auto) 88 % (31-73) Lymphocytes (%) (Auto) 7 % (24-48) Monocytes (%) (Auto) 5 % (0-9) Eosinophils (%) (Auto) 0 % (0-3) Basophils (%) (Auto) 0 % (0-3) Neutrophils # (Auto) 7.7 x10^3uL (1.8-7.7) Lymphocytes # (Auto) 0.6 x10^3/uL (1.0-4.8) Monocytes # (Auto) 0.4 x10^3/uL (0.0-1.1) Eosinophils # (Auto) 0.0 x10^3/uL (0.0-0.7) Basophils # (Auto) 0.0 x10^3/uL (0.0-0.2) Segmented Neutrophils % 86 % (35-66) Band Neutrophils % 4 % (0-9) Lymphocytes % 5 % (24-48) Monocytes % 5 % (0-10) Platelet Estimate Adequate (ADEQUATE) Sodium Level 138 mmol/L (136-145) Potassium Level 4.2 mmol/L (3.5-5.1) Chloride Level 101 mmol/L (98-107) Carbon Dioxide Level 28 mmol/L (21-32) Anion Gap 9 (6-14) Blood Urea Nitrogen 17 mg/dL (7-20) Creatinine 1.0 mg/dL (0.6-1.0) Estimated GFR (Cockcroft-Gault) 54.5 BUN/Creatinine Ratio 17 (6-20) Glucose Level 127 mg/dL (70-99) Calcium Level 10.4 mg/dL (8.5-10.1) Total Bilirubin 1.0 mg/dL (0.2-1.0) Aspartate Amino Transf (AST/SGOT) 22 U/L (15-37) Alanine Aminotransferase (ALT/SGPT) 22 U/L (14-59) Alkaline Phosphatase 105 U/L (46-116) Total Protein 8.0 g/dL (6.4-8.2) Albumin 3.7 g/dL (3.4-5.0) Albumin/Globulin Ratio 0.9 (1.0-1.7) Lipase 327 U/L (73-393) VTE Prophylaxis Ordered VTE Prophylaxis Devices: Yes VTE Pharmacological Prophylaxi: No Assessment/Plan Assessment/Plan This patient with the multitude of problems comes in following a recent episode of pancreatitis. She is having nausea vomiting and abdominal pain. I'm going to admit her start her on some IV fluids and consult GI depending on the recommendations of the installer apprentice we will go from there. The situation was discussed with the patient and the family. JEAN GRAY MD Jul 02, 2018 19:27
[2018-07-02] MEDS ORDERED: LEXAPRO10 MG PO (21:19)
[2018-07-02 23:00] VITALS: BP 123/62
[2018-07-02] MEDS ORDERED: C.DIFF MED SCREEN BY RX. MC ONE (23:30)
[2018-07-03 03:00] VITALS: BP 115/49
[2018-07-03] MEDS ORDERED: HYDROcodone/APAP 5/325MG 1 TAB TABLET PO PRN (06:15)
[2018-07-03 07:00] VITALS: BP 143/78
[2018-07-03] MEDS: ASPIRIN ENTERIC COATED 81 MG TABLET.DR. PO SCH (08:33)
[2018-07-03] MEDS: LOSARTAN POTASSIUM 50 MG TABLET. PO SCH (08:33)
[2018-07-03] MEDS: CHOLECALCIFEROL (VITAMIN D3) 1,000 UNIT TABLET PO SCH (08:33)
[2018-07-03] MEDS: predniSONE 10 MG TABLET PO SCH ×2 (08:33→20:36)
[2018-07-03] MEDS: ATENOLOL 50 MG TABLET. PO SCH ×2 (08:33→20:36)
[2018-07-03] MEDS: amLODIPine BESYLATE 5 MG TABLET PO SCH (08:33)
[2018-07-03] MEDS: TIMOLOL 0.5% OPHTH SOLUTION 5ML BOTTLE. OU SCH (08:37)
[2018-07-03] MEDS: BRIMONIDINE 0.2% OPHTH SOLUTION 5ML BOTTLE. OU SCH (08:37)
--- NOTE | 2018-07-03 09:02 | PDOC2 ---
GI CONSULT Reason For Consult: Abd pain HPI: HPI: 73 y/o female w/ recent admission and GI eval for upper abd pain, nausea, and decreased appetite. Lipase was >3000, then quickly returned to normal. Pancreas normal in appearance on CT, GB was normal on US, and HIDA was normal. CA19-9 was elevated at 170 and IgG4 was normal. Etiology was unclear, but pain and appetite improved and she was discharged w/ consideration for abd MRI and/or outpt EUS. Back to ER last night w/ same issues. [place] better for awhile at home, then upper abd pain ("dull") recurred about 1 week ago. Worse w/ eating, has nausea w/o vomiting. No reflux/heartburn or dysphagia. No diarrhea or constipation. No bleeding. Has lost 8-9 pounds. Reports normal colonoscopy <10 years ago, no previous EGD. H/o RA on chronic prednisone, also CAD on ASA. Takes Tylenol for pain. Took acid-digital marketer last admission, did not continue at home. Ate a turkey sandwich last night. Lipase WNL this time. Abd MRI ordered. PMH: PMH: PR, CAD h/o angioplasty, HTN, HLD, COPD, lung cancer s/p [place]AT[place] lobectomy + chemo/ rad, RA, fatty liver, diverticulosis, macular degeneration, depression, anxiety , tonsillectomy, cataract removal, appendectomy, hysterectomy, RSO FH: Family History: Other (mother - cholecystectomy) Social History: Smoke: Quit ALCOHOL: none Drugs: None ROS: GEN: Denies fevers, chills, sweats HEENT: Denies blurred vision, sore throat CV: Denies chest pain RESP: Denies shortness of air, cough GI: Per HPI : Denies hematuria, dysuria ENDO: +weight loss NEURO: Denies confusion, dizziness MSK: Denies weakness, joint pain/swelling SKIN: Denies jaundice, pruritus Vitals: Vitals: Vital Signs Date Time Temp Pulse Resp B/P (MAP) Pulse Ox O2 Delivery O2 Flow Rate FiO2 07/03/18 08:46 Room Air 07/03/18 07:00 98.1 82 18 143/78 (99) 94 98.1 Labs: Labs: Laboratory Tests Test 07/02/18 14:15 07/02/18 14:43 Urine Collection Type Unknown Urine Color Yellow Urine Clarity Clear Urine pH 6.5 Urine Specific [place] 1.010 Urine Protein Negative mg/dL (NEG-TRACE) Urine Glucose (UA) Negative mg/dL (NEG) Urine Ketones (Stick) Negative mg/dL (NEG) Urine Blood Negative (NEG) Urine Nitrite Negative (NEG) Urine Bilirubin Negative (NEG) Urine Urobilinogen Dipstick 0.2 mg/dL (0.2 mg/dL) Urine Leukocyte Esterase Negative (NEG) Urine RBC 0 /HPF (0-2) Urine WBC 0 /HPF (0-4) Urine Squamous Epithelial Cells Occ /LPF Urine Bacteria 0 /HPF (0-FEW) White Blood Count 8.7 x10^3/uL (4.0-11.0) Red Blood Count 4.44 x10^6/uL (3.50-5.40) Hemoglobin 13.4 g/dL (12.0-15.5) Hematocrit 39.7 % (36.0-47.0) Mean Corpuscular Volume 89 fL (79-100) Mean Corpuscular Hemoglobin 30 pg (25-35) Mean Corpuscular Hemoglobin Concent 34 g/dL (31-37) Red Cell Distribution Width 15.1 % (11.5-14.5) Platelet Count 300 x10^3/uL (140-400) Neutrophils (%) (Auto) 88 % (31-73) Lymphocytes (%) (Auto) 7 % (24-48) Monocytes (%) (Auto) 5 % (0-9) Eosinophils (%) (Auto) 0 % (0-3) Basophils (%) (Auto) 0 % (0-3) Neutrophils # (Auto) 7.7 x10^3uL (1.8-7.7) Lymphocytes # (Auto) 0.6 x10^3/uL (1.0-4.8) Monocytes # (Auto) 0.4 x10^3/uL (0.0-1.1) Eosinophils # (Auto) 0.0 x10^3/uL (0.0-0.7) Basophils # (Auto) 0.0 x10^3/uL (0.0-0.2) Segmented Neutrophils % 86 % (35-66) Band Neutrophils % 4 % (0-9) Lymphocytes % 5 % (24-48) Monocytes % 5 % (0-10) Platelet Estimate Adequate (ADEQUATE) Sodium Level 138 mmol/L (136-145) Potassium Level 4.2 mmol/L (3.5-5.1) Chloride Level 101 mmol/L (98-107) Carbon Dioxide Level 28 mmol/L (21-32) Anion Gap 9 (6-14) Blood Urea Nitrogen 17 mg/dL (7-20) Creatinine 1.0 mg/dL (0.6-1.0) Estimated GFR (Cockcroft-Gault) 54.5 BUN/Creatinine Ratio 17 (6-20) Glucose Level 127 mg/dL (70-99) Calcium Level 10.4 mg/dL (8.5-10.1) Total Bilirubin 1.0 mg/dL (0.2-1.0) Aspartate Amino Transf (AST/SGOT) 22 U/L (15-37) Alanine Aminotransferase (ALT/SGPT) 22 U/L (14-59) Alkaline Phosphatase 105 U/L (46-116) Total Protein 8.0 g/dL (6.4-8.2) Albumin 3.7 g/dL (3.4-5.0) Albumin/Globulin Ratio 0.9 (1.0-1.7) Lipase 327 U/L (73-393) Allergies: Coded Allergies: azithromycin (Verified Allergy, Severe, Anaphylaxis, 09/26/14) erythromycin base (Verified Allergy, Severe, Anaphylaxis, 09/26/14) iodine (Verified Allergy, Severe, SWELLING, SOA, THROAT CLOSES UP, ) oxytetracycline (Verified Allergy, Severe, Anaphylaxis, 09/26/14) tetracycline (Verified Allergy, Severe, Anaphylaxis, 09/26/14) codeine (Verified Allergy, Intermediate, 09/26/14) egg (Verified Allergy, Intermediate, hives, "eggs in vaccines", 09/26/14) morphine (Verified Allergy, Intermediate, 06/01/16) hallucinations Medications: Current Medications Medications (Trade) Dose Ordered Sig/Cammy Route PRN Reason Start Time Stop Time Status Last Admin Dose Admin Fentanyl Citrate (Fentanyl 2ml Vial) 50 mcg 1X ONCE IV 07/02/18 14:45 07/02/18 14:46 DC 07/02/18 14:51 Sodium Chloride 1,000 ml @ 1,000 mls/hr 1X ONCE IV 07/02/18 14:45 07/02/18 15:44 DC 07/02/18 14:50 Ondansetron HCl (Zofran) 4 mg 1X ONCE IV 07/02/18 14:45 07/02/18 14:46 DC 07/02/18 14:51 Ondansetron HCl (Zofran) 4 mg PRN Q8HRS PRN IV NAUSEA/VOMITING 07/02/18 17:45 07/03/18 17:44 07/03/18 05:38 Fentanyl Citrate (Fentanyl 2ml Vial) 50 mcg PRN Q2HRS PRN IV pain 07/02/18 18:00 07/03/18 08:46 Pharmacy Consult (C.diff Med Screen By Rx) 1 each 1X ONCE MC 07/02/18 23:30 07/02/18 23:31 DC 07/02/18 23:30 Brimonidine Tartrate (Alphagan) 1 drop DAILY OU 07/03/18 09:00 07/03/18 08:37 Timolol Maleate (Timoptic 0.5% [facility]) 1 drop DAILY OU 07/03/18 09:00 07/03/18 08:37 Imaging: Imaging: Per HPI, reviewed in Months Of Me. PE: GEN: NAD, was asleep HEENT: Atraumatic, PERRL LUNGS: diminished anteriorly HEART: RRR ABD: epigastric discomfort to BUQ, soft, BS+ EXTREMITY: No edema SKIN: No rashes, no jaundice NEURO/PSYCH: A & O 3 A/P: A/P: Recurrent upper abd pain, nausea, weight loss H/o elevated lipase and CA19-9 w/ normal pancreas and GB on CT and US CRC screen - reports normal colonoscopy <10 years ago Diverticulosis Hepatic steatosis RA on prednisone, CAD on ASA, h/o lung cancer -- Reviewed w/ Dr. Clark. Plans for MRI, await this. Additionally, with recurrent issues, will proceed w/ EGD this afternoon. If unrevealing, could pursue outpt EUS (not performed at this facility). VICENTE BALL Jul 03, 2018 09:02
[2018-07-03 11:00] VITALS: BP 123/74
[2018-07-03] MEDS ORDERED: IV NORMAL SALINE 1000ML BAG 1,000 ML IV SCH (11:00)
[2018-07-03] MEDS: CITALOPRAM 20 MG TABLET. PO SCH (11:12)
[2018-07-03] MEDS ORDERED: PANTOPRAZOLE IV PUSH 40 MG VIAL. IVP ONE (13:30)
[2018-07-03] MEDS ORDERED: LIDOCAINE 2% PF Vial for OR 5 ML VIAL. ONE (13:54)
[2018-07-03] MEDS ORDERED: PROPOFOL 20 ML IV ONE (13:54)
--- NOTE | 2018-07-03 14:28 | PDOC4 ---
PROCEDURE Procedure EGD with bx abd pain anesthesia with propofol Findings- distal esophagitis (mild) , gastritis, erosive duodenitis with erosive changes Plna- PPI, avoid NSAIDs, check biopsies, proceed with pancreas w/u - MRCP and eventually EUS MIESHA SAEZ MD Jul 03, 2018 14:28
[2018-07-03] MEDS: PANTOPRAZOLE 40 MG TABLET.DR. PO SCH (14:30)
[2018-07-03] MEDS: SUCRALFATE 1 GM TABLET. PO SCH (17:09)
--- NOTE | 2018-07-03 18:33 | PDOC ---
PROGRESS NOTES Subjective Subjective Patient complains of a sore throat and is still a little groggy from the sedation for the procedures today. Objective Objective Vital Signs Date Time Temp Pulse Resp B/P (MAP) Pulse Ox O2 Delivery O2 Flow Rate FiO2 07/03/18 14:55 97.4 84 18 153/94 95 Room Air 97.4 Intake and Output 07/03/18 07:00 Intake Total 360 ml Balance 360 ml Intake Oral 360 ml # Voids 2 Physical Exam Physical Exam Patient moving air a little better but still has some coarse breath sounds. No changes in heart sounds. Abdomen is soft, bowel sounds were present less tenderness. Extremities no edema Assessment Assessment Agree with the present plan from GI. Continue with the antibiotics. Comment Review of Relevant I have reviewed the following items natalia (where applicable) has been applied. Labs Laboratory Tests Test 07/02/18 14:15 07/02/18 14:43 Urine Collection Type Unknown Urine Color Yellow Urine Clarity Clear Urine pH 6.5 Urine Specific [place] 1.010 Urine Protein Negative mg/dL (NEG-TRACE) Urine Glucose (UA) Negative mg/dL (NEG) Urine Ketones (Stick) Negative mg/dL (NEG) Urine Blood Negative (NEG) Urine Nitrite Negative (NEG) Urine Bilirubin Negative (NEG) Urine Urobilinogen Dipstick 0.2 mg/dL (0.2 mg/dL) Urine Leukocyte Esterase Negative (NEG) Urine RBC 0 /HPF (0-2) Urine WBC 0 /HPF (0-4) Urine Squamous Epithelial Cells Occ /LPF Urine Bacteria 0 /HPF (0-FEW) White Blood Count 8.7 x10^3/uL (4.0-11.0) Red Blood Count 4.44 x10^6/uL (3.50-5.40) Hemoglobin 13.4 g/dL (12.0-15.5) Hematocrit 39.7 % (36.0-47.0) Mean Corpuscular Volume 89 fL (79-100) Mean Corpuscular Hemoglobin 30 pg (25-35) Mean Corpuscular Hemoglobin Concent 34 g/dL (31-37) Red Cell Distribution Width 15.1 % (11.5-14.5) Platelet Count 300 x10^3/uL (140-400) Neutrophils (%) (Auto) 88 % (31-73) Lymphocytes (%) (Auto) 7 % (24-48) Monocytes (%) (Auto) 5 % (0-9) Eosinophils (%) (Auto) 0 % (0-3) Basophils (%) (Auto) 0 % (0-3) Neutrophils # (Auto) 7.7 x10^3uL (1.8-7.7) Lymphocytes # (Auto) 0.6 x10^3/uL (1.0-4.8) Monocytes # (Auto) 0.4 x10^3/uL (0.0-1.1) Eosinophils # (Auto) 0.0 x10^3/uL (0.0-0.7) Basophils # (Auto) 0.0 x10^3/uL (0.0-0.2) Segmented Neutrophils % 86 % (35-66) Band Neutrophils % 4 % (0-9) Lymphocytes % 5 % (24-48) Monocytes % 5 % (0-10) Platelet Estimate Adequate (ADEQUATE) Sodium Level 138 mmol/L (136-145) Potassium Level 4.2 mmol/L (3.5-5.1) Chloride Level 101 mmol/L (98-107) Carbon Dioxide Level 28 mmol/L (21-32) Anion Gap 9 (6-14) Blood Urea Nitrogen 17 mg/dL (7-20) Creatinine 1.0 mg/dL (0.6-1.0) Estimated GFR (Cockcroft-Gault) 54.5 BUN/Creatinine Ratio 17 (6-20) Glucose Level 127 mg/dL (70-99) Calcium Level 10.4 mg/dL (8.5-10.1) Total Bilirubin 1.0 mg/dL (0.2-1.0) Aspartate Amino Transf (AST/SGOT) 22 U/L (15-37) Alanine Aminotransferase (ALT/SGPT) 22 U/L (14-59) Alkaline Phosphatase 105 U/L (46-116) Total Protein 8.0 g/dL (6.4-8.2) Albumin 3.7 g/dL (3.4-5.0) Albumin/Globulin Ratio 0.9 (1.0-1.7) Lipase 327 U/L (73-393) Medications Current Medications Fentanyl Citrate (Fentanyl 2ml Vial) 50 mcg 1X ONCE IV Last administered on at 14:51; Start 07/02/18 at 14:45; Stop 07/02/18 at 14:46; Status DC Sodium Chloride 1,000 ml @ 1,000 mls/hr 1X ONCE IV Last administered on at 14:50; Start 07/02/18 at 14:45; Stop 07/02/18 at 15:44; Status DC Ondansetron HCl (Zofran) 4 mg 1X ONCE IV Last administered on 07/02/18at 14:51 ; Start 07/02/18 at 14:45; Stop 07/02/18 at 14:46; Status DC Ondansetron HCl (Zofran) 4 mg PRN Q8HRS PRN IV NAUSEA/VOMITING Last administered on 07/03/18at 05:38; Start 07/02/18 at 17:45; Stop 07/03/18 at 17:44 ; Status DC Morphine Sulfate (Morphine Sulfate) 4 mg PRN Q2HR PRN IV PAIN; Start 07/02/18 at 17:45; Stop 07/03/18 at 17:44; Status Cancel Fentanyl Citrate (Fentanyl 2ml Vial) 50 mcg PRN Q2HRS PRN IV SEVERE PAIN Last administered on 07/03/18at 08:46; Start 07/02/18 at 18:00 Pharmacy Consult (C.diff Med Screen By Rx) 1 each 1X ONCE MC Last administered on 07/02/18at 23:30; Start 07/02/18 at 23:30; Stop 07/02/18 at 23:31 ; Status DC Alprazolam (Xanax) 0.5 mg QIDPRN PRN PO ANXIETY / AGITATION; Start 07/03/18 at 06:15 Amlodipine Besylate (Norvasc) 5 mg DAILY PO ; Start 07/03/18 at 09:00 Aspirin (Ecotrin) 81 mg DAILY PO ; Start 07/03/18 at 09:00 Atenolol (Tenormin) 50 mg BID PO ; Start 07/03/18 at 09:00 Vitamin D (Vitamin D3) 2,000 unit DAILY PO ; Start 07/03/18 at 09:00 Acetaminophen/ Hydrocodone Bitart (Lortab 5/325) 1 tab PRN Q6HRS PRN PO MILD TO MODERATE PAIN; Start 07/03/18 at 06:15 Prednisone (Prednisone) 10 mg DAILY PO ; Start 07/03/18 at 09:00 Brimonidine Tartrate (Alphagan) 1 drop DAILY OU Last administered on 07/03/18at 08:37; Start 07/03/18 at 09:00 Citalopram Hydrobromide (CeleXA) 20 mg DAILYWLUN PO ; Start 07/03/18 at 12:00 Latanoprost (Xalatan) 1 drop QHS OU ; Start 07/03/18 at 21:00 Losartan Potassium (Cozaar) 100 mg DAILY PO ; Start 07/03/18 at 09:00 Atorvastatin Calcium (Lipitor) 20 mg QHS PO ; Start 07/03/18 at 21:00 Timolol Maleate (Timoptic 0.5% [facility]) 1 drop DAILY OU Last administered on 07/03at 08:37; Start 07/03/18 at 09:00 Sodium Chloride 1,000 ml @ 100 mls/hr Q10H IV Last administered on 07/03/18at 10:55; Start 07/03/18 at 11:00; Stop 07/03/18 at 17:10; Status DC Lorazepam (Ativan) 0.5 mg PRN Q3HRS PRN IV ANXIETY / AGITATION Last administered on 07/03/18at 12:41; Start 07/03/18 at 12:45 Pantoprazole Sodium (PROTONIX VIAL for IV PUSH) 40 mg 1X ONCE IVP Last administered on 07/03/18at 15:26; Start 07/03/18 at 13:30; Stop 07/03/18 at 13:31 ; Status DC Propofol 20 ml @ As Directed STK-MED ONCE IV ; Start 07/03/18 at 13:54; Stop at 14:00; Status DC Lidocaine HCl (Lidocaine Pf 2% Vial) 5 ml STK-MED ONCE .ROUTE ; Start 07/03/18 at 13:54; Stop 07/03/18 at 14:00; Status DC Pantoprazole Sodium (Protonix) 40 mg DAILYAC PO ; Start 07/03/18 at 14:30 Sucralfate (Carafate) 1 gm BIDAC PO Last administered on 07/03/18at 17:09; Start 07/03/18 at 16:30 Active Scripts Active [place] 5-325 Tablet (Acetaminophen/Hydrocodone Bitart) 1 Each Tablet 1 Tab PO PRN Q6HRS PRN Reported Lexapro (Escitalopram Oxalate) 10 Mg Tablet 1 Tab PO DAILYWLUN Latanoprost 2.5 Ml Drops 1 Drop EACHEYE QHS Combigan Eye Drops (Brimonidine Tartrate/Timolol) 5 Ml Drops 5 Ml OP DAILY Prednisone 20 Mg Tablet 10 Mg PO DAILY Simvastatin 40 Mg Tablet 1 Tab PO QHS Amlodipine Besylate 5 Mg Tablet 5 Mg PO DAILY Vitamin D3 (Cholecalciferol (Vitamin D3)) 1,000 Unit Tablet 2,000 Unit PO DAILY Alprazolam 0.5 Mg Tablet 1 Tab PO QIDPRN PRN Aspir 81 (Aspirin) 81 Mg Tablet.dr 1 Tab PO DAILY Atenolol 50 Mg Tablet 1 Tab PO BID Losartan Potassium 100 Mg Tablet 1 Tab PO DAILY Vitals/I & O Vital Sign - Last 24 Hours 07/02/18 07/02/18 07/02/18 07/02/18 19:00 20:00 21:00 21:30 Pulse 72 70 68 Resp 21 24 18 B/P (MAP) 144/68 (93) 120/60 (80) 132/59 (83) Pulse Ox 96 94 95 O2 Delivery Room Air Room Air Room Air Room Air 07/02/18 07/03/18 07/03/18 07/03/18 23:00 03:00 07:00 08:00 Temp 97.5 97.9 98.1 97.5 97.9 98.1 Pulse 72 72 82 Resp 18 16 18 B/P (MAP) 123/62 (82) 115/49 (71) 143/78 (99) Pulse Ox 95 93 94 O2 Delivery Room Air Room Air Room Air Room Air 07/03/18 07/03/18 07/03/18 07/03/18 08:46 09:16 11:00 13:30 Temp 97.0 97.0 Pulse 76 Resp 18 B/P (MAP) 123/74 (90) Pulse Ox 95 O2 Delivery Room Air Room Air Room Air Room Air 07/03/18 07/03/18 07/03/18 07/03/18 13:31 14:31 14:40 14:50 Temp 97.8 97.4 97.4 97.4 97.8 97.4 97.4 97.4 Pulse 68 75 74 75 Resp 20 20 20 18 B/P (MAP) 91/50 106/54 129/80 Pulse Ox 93 100 96 97 O2 Delivery Room Air Room Air Room Air 07/03/18 14:55 Temp 97.4 97.4 Pulse 84 Resp 18 B/P (MAP) 153/94 Pulse Ox 95 O2 Delivery Room Air Intake and Output 07/02/18 07/02/18 07/03/18 15:00 23:00 07:00 Intake Total 360 ml Balance 360 ml JEAN GRAY MD Jul 03, 2018 18:33
[2018-07-03 19:00] VITALS: BP 147/72
[2018-07-03] MEDS: ALPRAZolam 0.5 MG TABLET PO PRN (20:36)
[2018-07-03] MEDS ORDERED: LATANOPROST 0.005% OPHTH SOLUTION 2.5ML BOTTLE. OU SCH (21:00)
[2018-07-03] MEDS ORDERED: ATORVASTATIN CALCIUM 20 MG TABLET PO SCH (21:00)
[2018-07-03 23:00] VITALS: BP 99/60
[2018-07-04 03:00] VITALS: BP 106/61
[2018-07-04] MEDS: SUCRALFATE 1 GM TABLET. PO SCH ×2 (05:51→15:42)
[2018-07-04] MEDS: ALPRAZolam 0.5 MG TABLET PO PRN ×2 (05:51→14:37)
[2018-07-04] MEDS: PANTOPRAZOLE 40 MG TABLET.DR. PO SCH (05:51)
[2018-07-04 07:15] VITALS: BP 128/69
[2018-07-04] MEDS: CHOLECALCIFEROL (VITAMIN D3) 1,000 UNIT TABLET PO SCH (08:00)
[2018-07-04] MEDS: ASPIRIN ENTERIC COATED 81 MG TABLET.DR. PO SCH (08:00)
[2018-07-04] MEDS: LOSARTAN POTASSIUM 50 MG TABLET. PO SCH (08:01)
[2018-07-04] MEDS: amLODIPine BESYLATE 5 MG TABLET PO SCH (08:01)
[2018-07-04] MEDS: ATENOLOL 50 MG TABLET. PO SCH (08:01)
[2018-07-04] MEDS: predniSONE 10 MG TABLET PO SCH (08:02)
[2018-07-04] MEDS: TIMOLOL 0.5% OPHTH SOLUTION 5ML BOTTLE. OU SCH (08:03)
[2018-07-04] MEDS: BRIMONIDINE 0.2% OPHTH SOLUTION 5ML BOTTLE. OU SCH (08:03)
--- NOTE | 2018-07-04 11:05 | RAD ---
MRCP, 07/03/2018: HISTORY: Upper abdominal pain, pancreatitis, elevated lipase level Imaging was performed in axial and coronal planes utilizing a variety of imaging sequences including T2 weighted, fat suppressed T2 weighted, opposed phase gradient echo and diffusion-weighted sequences. Heavily T2 weighted MRCP sequences were also performed with 3-D MIP images reconstructions produced. No intrahepatic bile duct dilatation is seen. The proximal common hepatic duct at the danis hepatis is not clearly defined. Several calcifications were noted in this region on the recent CT study, likely arterial. Lack of clear visualization of the common hepatic duct at this level may be on a technical basis due to signal dropout related to these dense calcifications and/or respiratory motion artifact. The gallbladder is unremarkable. The common bile duct appears somewhat kinked and tortuous near the level of the cystic duct insertion site.The distal common bile duct is of normal caliber. The visualized portions of the pancreatic duct are unremarkable. No pancreatic abnormality is detected. There are several small subcentimeter bilateral renal cysts. There are also small low signal intensity nodules in the upper pole of the right kidney and lower pole the left kidney, most likely representing hemorrhagic cysts. IMPRESSION: 1. No evidence of bile duct obstruction. 2. Poor definition of the proximal common hepatic duct, likely on a technical basis. A stricture or obstructive process is unlikely considering the lack of proximal biliary dilatation. 3. Tortuosity and mild kinking of the mid common bile duct. 4. An ERCP may be considered for further evaluation, if clinically indicated. Electronically signed by: Sergio Rosa MD (07/04/2018 11:02 AM) [facility]
[2018-07-04 11:16] VITALS: BP 115/61
[2018-07-04] MEDS: CITALOPRAM 20 MG TABLET. PO SCH (12:16)
--- NOTE | 2018-07-04 13:54 | PDOC ---
Subjective: Subjective: [place] good this morning, then upper abd pain after coffee but able to tolerate breakfast. Objective: Objective: D/w Dr. Smith. Vital Signs: Vital Signs Date Time Temp Pulse Resp B/P (MAP) Pulse Ox O2 Delivery O2 Flow Rate FiO2 07/04/18 11:16 98.1 66 16 115/61 (79) 96 Room Air 98.1 Imaging: MRCP IMPRESSION: 1. No evidence of bile duct obstruction. 2. Poor definition of the proximal common hepatic duct, likely on a technical basis. A stricture or obstructive process is unlikely considering the lack of proximal biliary dilatation. 3. Tortuosity and mild kinking of the mid common bile duct. 4. An ERCP may be considered for further evaluation, if clinically indicated. EGD distal esophagitis (mild) , gastritis, erosive duodenitis with erosive changes PE: GEN: NAD LUNGS: CTAB HEART: RRR ABD: soft, not particularly tender NEURO/PSYCH: A & O 3 A/P: Recurrent upper abd pain, nausea, weight loss -EGD w/ erosive duodenitis, now on PPI and Carafate H/o elevated lipase and CA19-9 -normal pancreas on imaging RA on prednisone -- DC per primary. Continue Carafate and PPI, follow-up re: biopsy results. Outpt EUS @ [facility] or [facility] - our office will arrange. Discussed these plans w/ her in detail. VICENTE BALL Jul 04, 2018 13:54
[2018-07-04 15:03] VITALS: BP 117/61
--- NOTE | 2018-07-04 17:44 | PDOC3 ---
*Discharge Summary* Date of Admission: Jul 02, 2018 Date of Discharge: Jul 04, 2018 Admitting Diagnosis Abdominal pain Lung cancer Malnutrition Unable to tolerate by mouth route. Final Diagnosis Abdominal pain Lung cancer Erosive esophagitis, gastritis, duodenitis. Malnutrition CONSULTS GI Procedures EGD and MRCP Brief Hospital Course This patient is a very pleasant 73-year-old lady that had a long cancer and is status post lobectomy and has a multitude of problems. She has been having problems with her nutrition and comes in with severe abdominal pain and unable to tolerate the by mouth route due to pain as well as nausea. She appeared to be very weak and dehydrated as well as in a lot of stress from the pain. Her nausea was quite significant and kept her from being able to keep anything down. Recently she had an episode of pancreatitis when she came in with abdominal pain and a lipase that was over 3000. She had improved from that and had been discharged home but now she returns with nausea and abdominal pain. The lipase is only 300 this time. After I saw her in the emergency room he was decided to bring the patient in for further treatment and evaluation. I wanted to control the nausea as well as the pain and consult a sas sql developer to have her evaluated regards to this recurrent abdominal pain. IV fluids were started and the gastroenterologists were consulted and they saw the patient and he was decided to proceed with an EGD which was done. They saw inflammation and biopsies were done. The patient continued to complain of the abdominal pain and therefore the recommendation of the sas sql developer was to do an MRCP and this was done today and it did not show any dilatation of the ducts and therefore all that we haven't been able to find has been the inflammation of the esophagus, the stomach and the duodenum with an erosive duodenitis. In my opinion this patient needed to be in the hospital to receive medications, IV fluids and control of symptoms both the nausea as well as the pain and I felt that she should not be having the workup done as an outpatient but that we needed to control her situation better and this was the second admission with abdominal pain. Therefore the patient was kept in the hospital until the workup was done and her symptoms were controlled. Today the patient appears to feel better and has been started on pantoprazole as well as Carafate and her nausea has resolved. She has been instructed with regards to diet as well as follow-up medications and activity. To her home meds I have added pantoprazole 40 mg by mouth daily at bedtime and Carafate 1 g by mouth 4 times a day. Please see the chart for the results of the labs and tests. We have set up for the patient to be seen by GI and I will see her as an outpatient in 2 weeks. CONDITION AT DISCHARGE: Stable Home Meds Active Scripts Hydrocodone/Apap 5-325 (NORCO 5-325 TABLET) 1 Each Tablet, 1 TAB PO PRN Q6HRS PRN for PAIN, #20 TAB 0 Refills Prov:SCOTT PINEDO Balta INTERNAL SECURITY MANAGER 07/02/18 Reported Medications Escitalopram Oxalate (LEXAPRO) 10 Mg Tablet, 1 TAB PO DAILYWLUN, #90 TAB 3 Refills 07/02/18 Latanoprost (LATANOPROST) 2.5 Ml Drops, 1 DROP EACHEYE QHS, #7.5 ML 3 Refills 06/06/18 Brimonidine Tartrate/Timolol (COMBIGAN EYE DROPS) 5 Ml Drops, 5 ML OP DAILY, DROP 06/06/18 Prednisone (PREDNISONE) 20 Mg Tablet, 10 MG PO DAILY, TAB 04/16/18 Simvastatin (SIMVASTATIN) 40 Mg Tablet, 1 TAB PO QHS, #30 TAB 5 Refills 04/16/18 Amlodipine Besylate (AMLODIPINE BESYLATE) 5 Mg Tablet, 5 MG PO DAILY, TAB 03/07/16 Cholecalciferol (Vitamin D3) (VITAMIN D3) 1,000 Unit Tablet, 2000 UNIT PO DAILY 03/07/16 Alprazolam (ALPRAZOLAM) 0.5 Mg Tablet, 1 TAB PO QIDPRN PRN for ANXIETY / AGITATION 09/17/14 Aspirin (ASPIR 81) 81 Mg Tablet.dr, 1 TAB PO DAILY 09/17/14 Atenolol (ATENOLOL) 50 Mg Tablet, 1 TAB PO BID 09/17/14 Losartan Potassium (LOSARTAN POTASSIUM) 100 Mg Tablet, 1 TAB PO DAILY 09/17/14 Discontinued Reported Medications Duloxetine Hcl (CYMBALTA) 30 Mg Capsule.dr, 1 CAP PO TID, #30 CAP 5 Refills 04/16/18 Scheduled Amlodipine Besylate (Amlodipine Besylate), 5 MG PO DAILY, (Reported) Aspirin (Aspir 81), 1 TAB PO DAILY, (Reported) Atenolol (Atenolol), 1 TAB PO BID, (Reported) Brimonidine Tartrate/Timolol (Combigan Eye Drops), 5 ML OP DAILY, (Reported) Cholecalciferol (Vitamin D3) (Vitamin D3), 2,000 UNIT PO DAILY, (Reported) Escitalopram Oxalate (Lexapro), 1 TAB PO DAILYWLUN, (Reported) Latanoprost (Latanoprost), 1 DROP EACHEYE QHS, (Reported) Losartan Potassium (Losartan Potassium), 1 TAB PO DAILY, (Reported) Prednisone (Prednisone), 10 MG PO DAILY, (Reported) Simvastatin (Simvastatin), 1 TAB PO QHS, (Reported) Scheduled PRN Alprazolam (Alprazolam), 1 TAB PO QIDPRN PRN for ANXIETY / AGITATION, (Reported) Hydrocodone/Apap 5-325 ([place] 5-325 Tablet), 1 TAB PO PRN Q6HRS PRN for PAIN Discontinued Medications Duloxetine Hcl (Cymbalta), 1 CAP PO TID, (Reported) Scripts Hydrocodone/Apap 5-325 (NORCO 5-325 TABLET) 1 Each Tablet 1 TAB PO PRN Q6HRS PRN for PAIN, #20 TAB 0 Refills Prov: SCOTT PINEDO INTERNAL SECURITY MANAGER 07/02/18 Time Spent Total time spent with patient [] minutes for coordination of care, counseling, and education. JEAN GRAY MD Jul 04, 2018 17:44
--- NOTE | 2018-07-06 16:08 | PATHOLOGY ---
[facility] Accession Number: [id number] . 01 Material submitted: . PART A: ANTRUM BIOPSY PART B: DISTAL ESOPHAGUS BIOPSY . 01 Clinical history: . Abdominal pain, gastritis, esophagitis . 02 Diagnosis: A. Gastric biopsies, antrum: - Chronic gastritis, mild. . B. Esophageal biopsy, distal esophagus: - Segment of gastric mucosa showing mild chronic inflammation. [facility]/07/06/2018 . 02 Comment: Sections of the gastric antral biopsy show congestion and mild chronic inflammation. A properly controlled immunoperoxidase stain for Helicobacter is negative for Helicobacter organisms. There is no evidence of malignancy. . Sections of the distal esophageal biopsy reveal a segment of gastric mucosa showing mild chronic inflammation. There is no squamous esophageal mucosa. There is no evidence of Beltran's change, dysplasia, or malignancy. . ([facility] 07/06/2018) . 02 Electronically signed: . Ad Fernández MD, Pathologist NPI- [id number] . 01 Gross description: . . A. Received in formalin labeled "Karen Landaverde, antrum BX," are 3 segments of yost soft tissue measuring 1.1 x 0.6 x 0.3 cm in aggregate dimensions and ranging from 0.3 to 0.7 cm in maximum dimension. The specimen is submitted entirely in cassette A1. . B. Received in formalin labeled "Chema Landaverdeca, distal esophagus BX," is a single segment of yost soft tissue measuring 0.4 cm in maximum dimension. The specimen is submitted entirely in cassette B1. ([facility]; 07/04/2018) TOB/TOB . 02 Pathologist provided ICD-10: K29.50 . 02 CPT . 092213, 843178, [id number] Performed at: 01 [facility] [address], [place], [place] [id number] MD Brayden Rubio MD Phone: [phone] Performed at: 02 [facility] [address] [place], [place] [id number] MD Ad Fernández MD Phone: [phone]
== END 2018-07-04 17:50 | disposition home or self-care (01) | DRG 381 ==
LOC: ER 13:17 → 4 NORTH 17:40 → 5 NORTH 21:16
PROVIDERS: ADMIT Internal Medicine Cardiovascular Disease; ATTEND Internal Medicine Cardiovascular Disease
PROC: 0DB68ZX Excision of Stomach, Via Natural or Artificial Opening Endoscopic, Diagnostic (ICD-10-PCS; principal; 2018-07-02)
DX: K22.10 Ulcer of esophagus without bleeding (principal); E46 Unspecified protein-calorie malnutrition; K29.80 Duodenitis without bleeding; K29.70 Gastritis, unspecified, without bleeding; K21.0 Gastro-esophageal reflux disease with esophagitis; E78.5 Hyperlipidemia, unspecified; F32.9 Major depressive disorder, single episode, unspecified; F41.9 Anxiety disorder, unspecified; I10 Essential (primary) hypertension; I25.10 Atherosclerotic heart disease of native coronary artery without angina pectoris; J44.9 Chronic obstructive pulmonary disease, unspecified; K57.90 Diverticulosis of intestine, part unspecified, without perforation or abscess without bleeding; E05.90 Thyrotoxicosis, unspecified without thyrotoxic crisis or storm; M19.90 Unspecified osteoarthritis, unspecified site; J02.9 Acute pharyngitis, unspecified; K76.0 Fatty (change of) liver, not elsewhere classified; M06.9 Rheumatoid arthritis, unspecified; E86.0 Dehydration; Z79.52 Long term (current) use of systemic steroids; Z79.82 Long term (current) use of aspirin; Z79.899 Other long term (current) drug therapy; Z82.49 Family history of ischemic heart disease and other diseases of the circulatory system; Z85.118 Personal history of other malignant neoplasm of bronchus and lung; Z86.73 Personal history of transient ischemic attack (TIA), and cerebral infarction without residual deficits; Z90.710 Acquired absence of both cervix and uterus; Z90.2 Acquired absence of lung [part of]; Z68.22 Body mass index [BMI] 22.0-22.9, adult; Z88.8 Allergy status to other drugs, medicaments and biological substances; Z88.6 Allergy status to analgesic agent; Z91.012 Allergy to eggs; Z90.721 Acquired absence of ovaries, unilateral; Z90.49 Acquired absence of other specified parts of digestive tract; I25.2 Old myocardial infarction; Z92.21 Personal history of antineoplastic chemotherapy; Z92.3 Personal history of irradiation
CPT/HCPCS: 36415; 74181; 80053; 81001; 83690; 85007; 85025; 93005; 96374; C9113; J2001; J2060; J2405; J2704; J3010; J7030; J7512; 99285-25

== ENCOUNTER 2018-09-03 13:46 | Inpatient (IN) | payer MEDICARE ==
[~2018-09-03] VITALS: Ht 165.1 cm; Wt 39.7 kg
[~2018-09-03 13:46] MED LIST changes: -AMLO5TAB2 PO; +AMLO5TAB7 PO; +HYDR-971 PO; +LEXAPRO10 MG PO; -LOSA100T6 PO; +LOSA100T7 PO; +METO10TA81 PO; +ONDA4TAB7 PO; +PANT20TA2 PO; +SUCR1TAB35 PO
[2018-09-03 15:00] VITALS: BP 114/63
[2018-09-03] MEDS ORDERED: SUCR1TAB PO (15:17)
[2018-09-03] MEDS ORDERED: ALPR0.5T6 PO (15:17)
[2018-09-03] MEDS ORDERED: SIMV40TA PO (15:17)
[2018-09-03] MEDS ORDERED: LOSA100T2 PO (15:17)
[2018-09-03] MEDS ORDERED: ATEN50TA PO (15:17)
[2018-09-03] MEDS: SUCRALFATE 1 GM TABLET. PO SCH ×2 (16:10→20:59)
[2018-09-03] MEDS: ALPRAZolam 0.5 MG TABLET PO SCH ×2 (16:10→21:01)
[2018-09-03] MEDS: amLODIPine BESYLATE 5 MG TABLET PO SCH (16:11)
[2018-09-03 16:13] LABS: BASO % 0 % (0-3); EOS % 0 % (0-3); HEMATOCRIT 38.2 % (36.0-47.0); HEMOGLOBIN 12.8 g/dL (12.0-15.5); LYMPH # 0.6 x10^3/uL (1.0-4.8); LYMPH % 8 % (24-48); MEAN CORPUSCULAR HEMOGLOBIN 29 pg (25-35); MEAN CORPUSCULAR HGB CONC 34 g/dL (31-37); MEAN CORPUSCULAR VOLUME 88 fL (79-100); MONO # 0.5 x10^3/uL (0.0-1.1); MONO % 6 % (0-9); NEUT # 6.8 x10^3uL (1.8-7.7); NEUT % 85 % (31-73); PLATELET COUNT 270 x10^3/uL (140-400); RED BLOOD COUNT 4.36 x10^6/uL (3.50-5.40); RED CELL DISTRIBUTION WIDTH 12.9 % (11.5-14.5)
[2018-09-03] MEDS: ATENOLOL 50 MG TABLET. PO SCH (16:13)
[2018-09-03] MEDS: predniSONE 10 MG TABLET PO SCH (16:13)
[2018-09-03] MEDS: ASPIRIN ENTERIC COATED 81 MG TABLET.DR. PO SCH (16:14)
[2018-09-03] MEDS: CHOLECALCIFEROL (VITAMIN D3) 1,000 UNIT TABLET PO SCH (16:14)
[2018-09-03] MEDS: LOSARTAN POTASSIUM 50 MG TABLET. PO SCH (16:15)
[2018-09-03] MEDS: CITALOPRAM 20 MG TABLET. PO SCH (16:17)
[2018-09-03] MEDS: IV 1/2 NORMAL SALINE 1,000 ML IV SCH (16:18)
[2018-09-03 16:36] LABS: ALBUMIN 3.2 g/dL (3.4-5.0); ALBUMIN/GLOBULIN RATIO 0.9 (1.0-1.7); CALCIUM 9.1 mg/dL (8.5-10.1); CREATININE 0.8 mg/dL (0.6-1.0); GFR 70.5; POTASSIUM 4.8 mmol/L (3.5-5.1); TOTAL BILIRUBIN 0.6 mg/dL (0.2-1.0); TOTAL PROTEIN 6.7 g/dL (6.4-8.2)
[2018-09-03 16:43] LABS: % BASOS 1 % (0-3); % LYMPHS 4 % (24-48); % MONOS 4 % (0-10); % SEGS 91 % (35-66)
[2018-09-03 16:51] LABS: PLT ESTIMATE ADEQUATE (ADEQUATE)
--- NOTE | 2018-09-03 17:04 | RAD ---
CT head without intravenous contrast History: Altered mental status. Cancer history. Comparison: MR brain April 17, 2018. Technique: Axial images are obtained of the head from the skull base through the vertex without IV contrast. Exposure: One or more of the following individualized dose reduction techniques were utilized for this examination: 1. Automated exposure control 2. Adjustment of the mA and/or kV according to patient size 3. Use of iterative reconstruction technique Findings: The ventricles are appropriate in size, shape, and location for the patient's age. No obvious intracranial mass, mass-effect, midline shift, hemorrhage or obvious acute infarction is identified. Basilar cisterns are patent. There is a small focus of low-attenuation involving the left occipitoparietal junction, identified on previous study, compatible with old infarction. Mild nonspecific white matter low-attenuation seen, probably from chronic microvascular ischemic disease. Bone windows demonstrate no acute calvarial abnormality. The visualized paranasal sinuses appear clear. Impression: 1. No acute intracranial process. Please note that CT can be relatively insensitive to acute ischemic infarction for up to 24 hours after symptom onset. 2. 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 3. Nonspecific white matter changes, probably from chronic microvascular ischemic disease. Electronically signed by: Erasmo Villegas MD (09/03/2018 5:00 PM) [facility]
[2018-09-03] MEDS ORDERED: ACETAMINOPHEN 325 MG TABLET. PO PRN (17:15)
--- NOTE | 2018-09-03 17:22 | RAD ---
CT of the chest without contrast, 09/03/2018: HISTORY: Lung cancer history Noncontrast scans were obtained as requested. Comparison is made to a study from 07/26/2018. By history there has been a previous left upper lobectomy. Infiltrate in the posterior aspect of the left upper chest is unchanged. There are reticular/linear opacities in the left lung base which are also unchanged and probably represent scars. There are moderate emphysematous changes in both lungs with scattered parenchymal scars. A peripheral linear opacity in the right upper lobe seen on image 19 of series #2 is unchanged and may be a scar. There is an 11 x 5 mm part solid opacity in the right middle lobe as seen on image 33 of series #2. It has increased slightly in size since 07/26/2018. There is a 1 cm part solid opacity in the posterior aspect of the right lower lobe abutting the pleura, as seen on axial image 43 of series #2, which appears to be slightly larger than on the 07/26/2018 exam. A right Port-A-Cath extends into the inferior aspect of the superior vena cava. There is extensive calcific plaquing of the aorta and its branches including the coronary arteries. There are calcified lymph nodes at the left hilum. No mediastinal adenopathy is seen. There is no evidence of pleural fluid. A nonobstructing intrarenal calculus is noted on the left. A small hyperdense nodule in the upper pole the right kidney may be a complicated cyst. A solid nodule cannot be excluded. There are vertebroplasty changes involving 3 mid and lower thoracic vertebral bodies at T5, T7 and T9. A T8 vertebral compression fracture is unchanged. There are moderate scattered degenerative changes in the spine. IMPRESSION: 1. Emphysema with bilateral pleural/parenchymal scarring. 2. Stable postsurgical findings in the left chest with consolidation in the posterior aspect of left upper chest may represent post therapeutic scarring. 3. Small right middle lobe and right lower lobe opacities have increased in size, raising the possibility of a neoplastic etiology. 4. Additional chronic findings as described above. PQRS Compliance Statement: One or more of the following individualized dose reduction techniques were utilized for this examination: 1. Automated exposure control 2. Adjustment of the mA and/or kV according to patient size 3. Use of iterative reconstruction technique Electronically signed by: Sergio Rosa MD (09/03/2018 5:18 PM) [facility]
--- NOTE | 2018-09-03 17:44 | PDOC1 ---
History and Physical Date of Admission Date of Admission DATE: 09/03/18 TIME: 17:36 Identification/Chief Complaint Chief Complaint Confusion, mental status changes. History of Present Illness History of Present Illness This patient is a 73-year-old lady that has a known history of long-standing COPD, lung cancer, coronary artery disease. She recently had admissions for episodes of pancreatitis. She is quite malnourished and has been getting weaker and weaker and losing weight. The patient had very confused and her daughter brought her to my office where I saw her and referred her to the hospital. She did not know exactly where she was somewhat was happening she stated that she felt very shaky and was almost crying because she didn't know what she was being taken. She states that she didn't want to go to the hospital but didn't exactly know where she was. The family was in agreement that the patient needed to be admitted. At this point she is a rather poor historian but she denies any pains except for her chronic abdominal pain and back pain. Some dyspnea. No palpitations. No loss of consciousness. Past Medical History Cardiovascular: CAD, HTN, LA, Pulmonary hypertension Pulmonary: Bronchitis, COPD, Other GI: Constipation, GERD, Gastritis, Other Heme/Onc: No pertinent hx, Cancer, Other (lung cancer) Hepatobiliary: No pertinent hx Psych: No pertinent hx, Anxiety Musculoskeletal: Osteoarthritis, Weakness Rheumatologic: Rheumatoid arthritis Infectious disease: No pertinent hx Renal/: No pertinent hx Endocrine: Hyperthyroidism Past Surgical History Past Surgical History: Hysterectomy Family History Family History: Cancer, Coronary Artery Disease, Other Social History ALCOHOL: none Drugs: None Current Medications Current Medications Current Medications Sodium Chloride 1,000 ml @ 60 mls/hr [id number] IV Last administered on at 16:18; Start 09/03/18 at 15:00 Alprazolam (Xanax) 0.5 mg TID PO Last administered on 09/03/18at 16:10; Start 09/03/18 at 16:30 Aspirin (Ecotrin) 81 mg DAILY PO Last administered on 09/03/18at 16:14; Start 09/03/18 at 16:30 Atenolol (Tenormin) 50 mg DAILY PO ; Start 09/03/18 at 16:30 Vitamin D (Vitamin D3) 2,000 unit DAILY PO Last administered on 09/03/18at 16: 14; Start 09/03/18 at 16:30 Prednisone (Prednisone) 10 mg DAILY PO ; Start 09/03/18 at 16:30 Non-Formulary Medication (Brimonidine Tartrate/Timolol (Combigan Eye Drops)) 5 ml DAILY OP ; Start 09/04/18 at 09:00; Status UNV Citalopram Hydrobromide (CeleXA) 20 mg DAILYWLUN PO Last administered on at 16:17; Start 09/03/18 at 16:30 Latanoprost (Xalatan) 1 drop QHS OU ; Start 09/03/18 at 21:00 Sucralfate (Carafate) 1 gm QID PO Last administered on 09/03/18at 16:10; Start 09/03/18 at 17:00 Amlodipine Besylate (Norvasc) 5 mg DAILY PO Last administered on 09/03/18at 16: 11; Start 09/03/18 at 16:30 Simvastatin (Zocor) 40 mg QHS PO ; Start 09/03/18 at 21:00 Losartan Potassium (Cozaar) 100 mg DAILY PO Last administered on 09/03/18at 16: 15; Start 09/03/18 at 16:30 Brimonidine Tartrate (Alphagan) 1 drop DAILY OU ; Start 09/04/18 at 09:00 Timolol Maleate (Timoptic 0.25% Ophth) 1 drop DAILY OU ; Start 09/04/18 at 09: 00 Alprazolam (Xanax) 0.25 mg PRN Q6HRS PRN PO ANXIETY / AGITATION; Start at 17:15 Acetaminophen (Tylenol) 325 mg PRN Q6HRS PRN PO MILD PAIN / TEMP; Start at 17:15 Active Scripts Active Reglan (Metoclopramide Hcl) 10 Mg Tablet 1 Tab PO TID PRN Zofran (Ondansetron Hcl) 4 Mg Tablet 4 Mg PO PRN TID PRN nausea/vomiting [place] 5-325 Tablet (Acetaminophen/Hydrocodone Bitart) 1 Each Tablet 1 Tab PO PRN Q6HRS PRN Reported Cozaar (Losartan Potassium) 100 Mg Tablet 100 Mg PO DAILY Zocor (Simvastatin) 40 Mg Tablet 1 Tab PO DAILY Sucralfate 1 Gm Tablet 1 Tab PO QID Alprazolam 0.5 Mg Tablet 1 Tab PO TID Atenolol 50 Mg Tablet 1 Tab PO DAILY Protonix (Pantoprazole Sodium) 20 Mg Tablet.dr 2 Tab PO QHS Carafate (Sucralfate) 1 Gm Tablet 1 Tab PO TIDAC Lexapro (Escitalopram Oxalate) 10 Mg Tablet 1 Tab PO DAILYWLUN Latanoprost 2.5 Ml Drops 1 Drop EACHEYE QHS Combigan Eye Drops (Brimonidine Tartrate/Timolol) 5 Ml Drops 5 Ml OP DAILY Prednisone 20 Mg Tablet 10 Mg PO DAILY Amlodipine Besylate 5 Mg Tablet 5 Mg PO DAILY Vitamin D3 (Cholecalciferol (Vitamin D3)) 1,000 Unit Tablet 2,000 Unit PO DAILY Alprazolam 0.5 Mg Tablet 1 Tab PO QIDPRN PRN Aspir 81 (Aspirin) 81 Mg Tablet.dr 1 Tab PO DAILY Allergies Allergies: Coded Allergies: azithromycin (Verified Allergy, Severe, Anaphylaxis, 07/03/18) erythromycin base (Verified Allergy, Severe, Anaphylaxis, 07/03/18) iodine (Verified Allergy, Severe, SWELLING, SOA, THROAT CLOSES UP, 07/03/18 ) oxytetracycline (Verified Allergy, Severe, Anaphylaxis, 07/03/18) tetracycline (Verified Allergy, Severe, Anaphylaxis, 07/03/18) codeine (Verified Allergy, Intermediate, 07/03/18) egg (Verified Allergy, Intermediate, hives, "eggs in vaccines", 07/03/18) morphine (Verified Allergy, Intermediate, 07/03/18) hallucinations Physical Exam General: moderate distress, Other (patient confused and oriented to person) HEENT: PERRLA Lungs: Other (breast sounds decreased no wheezing, no rales) Heart: other (regular rate and rhythm S1-S2 1 to 2/6 systolic murmur. No S3 no S4) Abdomen: Normal bowel sounds, Soft Extremities: No edema Vitals Vitals Vital Signs Date Time Temp Pulse Resp B/P (MAP) Pulse Ox O2 Delivery O2 Flow Rate FiO2 09/03/18 16:54 Room Air 09/03/18 16:15 62 114/63 09/03/18 15:00 97.9 18 94 97.9 Labs Labs Laboratory Tests Test 09/03/18 16:05 White Blood Count 8.0 x10^3/uL (4.0-11.0) Red Blood Count 4.36 x10^6/uL (3.50-5.40) Hemoglobin 12.8 g/dL (12.0-15.5) Hematocrit 38.2 % (36.0-47.0) Mean Corpuscular Volume 88 fL (79-100) Mean Corpuscular Hemoglobin 29 pg (25-35) Mean Corpuscular Hemoglobin Concent 34 g/dL (31-37) Red Cell Distribution Width 12.9 % (11.5-14.5) Platelet Count 270 x10^3/uL (140-400) Neutrophils (%) (Auto) 85 % (31-73) Lymphocytes (%) (Auto) 8 % (24-48) Monocytes (%) (Auto) 6 % (0-9) Eosinophils (%) (Auto) 0 % (0-3) Basophils (%) (Auto) 0 % (0-3) Neutrophils # (Auto) 6.8 x10^3uL (1.8-7.7) Lymphocytes # (Auto) 0.6 x10^3/uL (1.0-4.8) Monocytes # (Auto) 0.5 x10^3/uL (0.0-1.1) Eosinophils # (Auto) 0.0 x10^3/uL (0.0-0.7) Basophils # (Auto) 0.0 x10^3/uL (0.0-0.2) Segmented Neutrophils % 91 % (35-66) Lymphocytes % 4 % (24-48) Monocytes % 4 % (0-10) Basophils % 1 % (0-3) Platelet Estimate Adequate (ADEQUATE) Erythrocyte Sedimentation Rate 58 (0-25) Sodium Level 142 mmol/L (136-145) Potassium Level 4.8 mmol/L (3.5-5.1) Chloride Level 104 mmol/L (98-107) Carbon Dioxide Level 29 mmol/L (21-32) Anion Gap 9 (6-14) Blood Urea Nitrogen 11 mg/dL (7-20) Creatinine 0.8 mg/dL (0.6-1.0) Estimated GFR (Cockcroft-Gault) 70.5 BUN/Creatinine Ratio 14 (6-20) Glucose Level 114 mg/dL (70-99) Calcium Level 9.1 mg/dL (8.5-10.1) Total Bilirubin 0.6 mg/dL (0.2-1.0) Aspartate Amino Transf (AST/SGOT) 22 U/L (15-37) Alanine Aminotransferase (ALT/SGPT) 22 U/L (14-59) Alkaline Phosphatase 95 U/L (46-116) Total Protein 6.7 g/dL (6.4-8.2) Albumin 3.2 g/dL (3.4-5.0) Albumin/Globulin Ratio 0.9 (1.0-1.7) Thyroid Stimulating Hormone (TSH) 0.371 uIU/mL (0.358-3.74) Laboratory Tests Test 09/03/18 16:05 White Blood Count 8.0 x10^3/uL (4.0-11.0) Red Blood Count 4.36 x10^6/uL (3.50-5.40) Hemoglobin 12.8 g/dL (12.0-15.5) Hematocrit 38.2 % (36.0-47.0) Mean Corpuscular Volume 88 fL (79-100) Mean Corpuscular Hemoglobin 29 pg (25-35) Mean Corpuscular Hemoglobin Concent 34 g/dL (31-37) Red Cell Distribution Width 12.9 % (11.5-14.5) Platelet Count 270 x10^3/uL (140-400) Neutrophils (%) (Auto) 85 % (31-73) Lymphocytes (%) (Auto) 8 % (24-48) Monocytes (%) (Auto) 6 % (0-9) Eosinophils (%) (Auto) 0 % (0-3) Basophils (%) (Auto) 0 % (0-3) Neutrophils # (Auto) 6.8 x10^3uL (1.8-7.7) Lymphocytes # (Auto) 0.6 x10^3/uL (1.0-4.8) Monocytes # (Auto) 0.5 x10^3/uL (0.0-1.1) Eosinophils # (Auto) 0.0 x10^3/uL (0.0-0.7) Basophils # (Auto) 0.0 x10^3/uL (0.0-0.2) Segmented Neutrophils % 91 % (35-66) Lymphocytes % 4 % (24-48) Monocytes % 4 % (0-10) Basophils % 1 % (0-3) Platelet Estimate Adequate (ADEQUATE) Erythrocyte Sedimentation Rate 58 (0-25) Sodium Level 142 mmol/L (136-145) Potassium Level 4.8 mmol/L (3.5-5.1) Chloride Level 104 mmol/L (98-107) Carbon Dioxide Level 29 mmol/L (21-32) Anion Gap 9 (6-14) Blood Urea Nitrogen 11 mg/dL (7-20) Creatinine 0.8 mg/dL (0.6-1.0) Estimated GFR (Cockcroft-Gault) 70.5 BUN/Creatinine Ratio 14 (6-20) Glucose Level 114 mg/dL (70-99) Calcium Level 9.1 mg/dL (8.5-10.1) Total Bilirubin 0.6 mg/dL (0.2-1.0) Aspartate Amino Transf (AST/SGOT) 22 U/L (15-37) Alanine Aminotransferase (ALT/SGPT) 22 U/L (14-59) Alkaline Phosphatase 95 U/L (46-116) Total Protein 6.7 g/dL (6.4-8.2) Albumin 3.2 g/dL (3.4-5.0) Albumin/Globulin Ratio 0.9 (1.0-1.7) Thyroid Stimulating Hormone (TSH) 0.371 uIU/mL (0.358-3.74) VTE Prophylaxis Ordered VTE Prophylaxis Devices: Yes VTE Pharmacological Prophylaxi: No Assessment/Plan Assessment/Plan This patient comes in with acute mental status changes that may be either secondary to an encephalopathy or perhaps in view of her long cancer history he could be metastatic disease. I would like to get a CT of the head and the chest and a consult with neurology depending in the wrist findings on the recommendations of the neurologist as well as the lab findings will then go from there. JEAN GRAY MD Sep 03, 2018 17:44
--- NOTE | 2018-09-03 18:16 | PDOC2 ---
NEUROLOGY CONSULT Date of Admission Date of Admission DATE: 09/03/18 TIME: 17:58 Reason for Consult Reason for Consult: IMPRESSION: Metabolic encephalopathy. Tremors. ET. Lung cancer. Erosive esophagitis, gastritis, duodenitis. COPD. CAD. KS. HLD. Chronic T3, T4, T5, T8, and T9 compression fractures. 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 Old right cerebellar lacunar infarct. RECOMMENDATIONS/PLAN: Brain MRI w/wo contrast. Lab: see orders. EEG. Continue ASA daily. Continue Zocor HS. Continue Xanax. Treat medical diseases. HISTORY OF THE PRESENT ILLNESS: This is a 73-year-old female with history of long-standing COPD, lung cancer, coronary artery disease and other medical diseases. She recently had admissions for episodes of pancreatitis. She has tremor like movements in the past 2 weeks. She was noted confused and her daughter brought her to cardiac clinic then was admitted into hospital for further evaluation. Past Medical History Cardiovascular: [place] Pulmonary: COPD Musculoskeletal: Osteoarthritis Rheumatologic: Rheumatoid arthritis ENT: Other (Glaucoma, macular degeneration) Past Surgical History Hysterectomy Family History Cancer, Coronary Artery Disease, Other (pulmonary fibrosis) Allergies Coded Allergies: azithromycin (Verified Allergy, Severe, Anaphylaxis, 09/25/14) erythromycin base (Verified Allergy, Severe, Anaphylaxis, 09/25/14) iodine (Verified Allergy, Severe, SWELLING, SOA, 09/22/14) THROAT CLOSES UP oxytetracycline (Verified Allergy, Severe, Anaphylaxis, 09/25/14) tetracycline (Verified Allergy, Severe, Anaphylaxis, 09/25/14) egg (Verified Allergy, Intermediate, hives, 09/25/14) "eggs in vaccines" codeine (Verified Allergy, Mild, 09/17/14) MEDICATIONS: Refer to MAR SOCIAL HISTORY: Lives at home. Denies current smoking, drinking, and illicit drug use. She smoked cigarettes before, but quit several months ago. REVIEW OF SYSTEMS: Constitutional: Mild malnutrition.. Head: No traumatic brain or head injury. Skin: No edema, or rash. Ear: No infection. Eyes: No vision loss or color blindness. Nose: No bleeding or purulent discharges. Hearing: Mild hearing decrease. Neck: No injury. Breast: No history of cancer, masses,or discharges. Cardiac: CAD. Pulmonary: COPD, lung cancer. GI: No GI ulcer, GI bleeding. Urinary/genital: UTI. Endocrinologic: No cousin face, craniofacial dysmorphism, polydactyly. Skeletomuscular: Generalized weakness. Neurological: see HP. Psychiatric: Denies drug use/abuse. Otherwise, not [id number] review of systems. PHYSICAL EXAMINATION: General appearance is in subacute distress. HEENT: Normocephalic and nontraumatic. Eyes, nose, ears, and throat are unremarkable. Neck is supple. No lymphadenopathy. No bruits are heard over the carotid artery. No crepitus. Cardiovascular: S1, S2, regular rate and rhythm. Pulmonary: Clear to auscultation bilaterally. Abdomen: Bowel sounds are positive. Abdomen is soft, nontender, and nondistended. Extremities: No rash, lesions, or edema. No restriction of range of motion NEUROLOGICAL EXAMINATION: Awake. Partially oriented to time, but knew place and person. PERRL. EOMI. CN: no focal findings. Muscle tone: within normal. Muscle strength: 4+ DTR: 2 Plantar reflex: Flexor response bilaterally Gait: not examined in bed. Sensory exam: no abnormal findings. No acute cerebellar signs elicited. F-T-N test fine. Current Medications Current Medications Current Medications Sodium Chloride 1,000 ml @ 60 mls/hr [id number] IV Last administered on at 16:18; Start 09/03/18 at 15:00 Alprazolam (Xanax) 0.5 mg TID PO Last administered on 09/03/18at 16:10; Start 09/03/18 at 16:30 Aspirin (Ecotrin) 81 mg DAILY PO Last administered on 09/03/18at 16:14; Start 09/03/18 at 16:30 Atenolol (Tenormin) 50 mg DAILY PO ; Start 09/03/18 at 16:30 Vitamin D (Vitamin D3) 2,000 unit DAILY PO Last administered on 09/03/18at 16: 14; Start 09/03/18 at 16:30 Prednisone (Prednisone) 10 mg DAILY PO ; Start 09/03/18 at 16:30 Non-Formulary Medication (Brimonidine Tartrate/Timolol (Combigan Eye Drops)) 5 ml DAILY OP ; Start 09/04/18 at 09:00; Status UNV Citalopram Hydrobromide (CeleXA) 20 mg DAILYWLUN PO Last administered on at 16:17; Start 09/03/18 at 16:30 Latanoprost (Xalatan) 1 drop QHS OU ; Start 09/03/18 at 21:00 Sucralfate (Carafate) 1 gm QID PO Last administered on 09/03/18at 16:10; Start 09/03/18 at 17:00 Amlodipine Besylate (Norvasc) 5 mg DAILY PO Last administered on 09/03/18at 16: 11; Start 09/03/18 at 16:30 Simvastatin (Zocor) 40 mg QHS PO ; Start 09/03/18 at 21:00 Losartan Potassium (Cozaar) 100 mg DAILY PO Last administered on 09/03/18at 16: 15; Start 09/03/18 at 16:30 Brimonidine Tartrate (Alphagan) 1 drop DAILY OU ; Start 09/04/18 at 09:00 Timolol Maleate (Timoptic 0.25% Ophth) 1 drop DAILY OU ; Start 09/04/18 at 09: 00 Alprazolam (Xanax) 0.25 mg PRN Q6HRS PRN PO ANXIETY / AGITATION; Start at 17:15 Acetaminophen (Tylenol) 325 mg PRN Q6HRS PRN PO MILD PAIN / TEMP; Start at 17:15 Active Scripts Active Reglan (Metoclopramide Hcl) 10 Mg Tablet 1 Tab PO TID PRN Zofran (Ondansetron Hcl) 4 Mg Tablet 4 Mg PO PRN TID PRN nausea/vomiting [place] 5-325 Tablet (Acetaminophen/Hydrocodone Bitart) 1 Each Tablet 1 Tab PO PRN Q6HRS PRN Reported Cozaar (Losartan Potassium) 100 Mg Tablet 100 Mg PO DAILY Zocor (Simvastatin) 40 Mg Tablet 1 Tab PO DAILY Sucralfate 1 Gm Tablet 1 Tab PO QID Alprazolam 0.5 Mg Tablet 1 Tab PO TID Atenolol 50 Mg Tablet 1 Tab PO DAILY Protonix (Pantoprazole Sodium) 20 Mg Tablet.dr 2 Tab PO QHS Carafate (Sucralfate) 1 Gm Tablet 1 Tab PO TIDAC Lexapro (Escitalopram Oxalate) 10 Mg Tablet 1 Tab PO DAILYWLUN Latanoprost 2.5 Ml Drops 1 Drop EACHEYE QHS Combigan Eye Drops (Brimonidine Tartrate/Timolol) 5 Ml Drops 5 Ml OP DAILY Prednisone 20 Mg Tablet 10 Mg PO DAILY Amlodipine Besylate 5 Mg Tablet 5 Mg PO DAILY Vitamin D3 (Cholecalciferol (Vitamin D3)) 1,000 Unit Tablet 2,000 Unit PO DAILY Alprazolam 0.5 Mg Tablet 1 Tab PO QIDPRN PRN Aspir 81 (Aspirin) 81 Mg Tablet. 1 Tab PO DAILY Allergies Allergies: Allergies Coded Allergies Type Severity Reaction Last Updated Verified azithromycin Allergy Severe Anaphylaxis 07/03/18 Yes erythromycin base Allergy Severe Anaphylaxis 07/03/18 Yes iodine Allergy Severe SWELLING, SOA, THROAT CLOSES UP 07/03/18 Yes oxytetracycline Allergy Severe Anaphylaxis 07/03/18 Yes tetracycline Allergy Severe Anaphylaxis 07/03/18 Yes codeine Allergy Intermediate 07/03/18 Yes egg Allergy Intermediate hives, "eggs in vaccines" 07/03/18 Yes morphine Allergy Intermediate 07/03/18 Yes ROS Review of System The patient denies any associated fevers, chills, headache, ear pain, rhinorrhea , sore throat, stiff neck, productive cough, chest pain, shortness of breath, back or flank pain, abdominal pain, nausea, vomiting, diarrhea, constipation, dysuria, rash, numbness, weakness, tingling, incontinence, difficulty ambulating, or diaphoresis. Physical Exam Physical Exam General: Well developed, well nourished, no acute distress, well appearing HEENT: Pupils equally round and reactive to light, EOMI, no discharge, normal conjunctiva Neck: Supple, no nuchal rigidity, no JVD, trachea midline, no tenderness Cardiac: RRR, no murmurs, no gallops, no rubs Chest/Lungs: CTAB, no wheeze, no rhonchi, no crackles Abdomen: soft, non-distended, no guarding, no peritoneal signs, non-tender Back: No tenderness Extremities: no edema, pulses intact, non-tender,capillary refill <3 sec bilateral upper and lower extremities, Neuro: Alert and oriented x 4, no focal deficits, normal speech Vitals Vitals: Vital Signs Date Time Temp Pulse Resp B/P (MAP) Pulse Ox O2 Delivery O2 Flow Rate FiO2 09/03/18 16:54 Room Air 09/03/18 16:15 62 114/63 10/22/18 15:00 97.9 18 94 97.9 Labs Labs Laboratory Tests Test 09/03/18 16:05 White Blood Count 8.0 x10^3/uL (4.0-11.0) Red Blood Count 4.36 x10^6/uL (3.50-5.40) Hemoglobin 12.8 g/dL (12.0-15.5) Hematocrit 38.2 % (36.0-47.0) Mean Corpuscular Volume 88 fL (79-100) Mean Corpuscular Hemoglobin 29 pg (25-35) Mean Corpuscular Hemoglobin Concent 34 g/dL (31-37) Red Cell Distribution Width 12.9 % (11.5-14.5) Platelet Count 270 x10^3/uL (140-400) Neutrophils (%) (Auto) 85 % (31-73) Lymphocytes (%) (Auto) 8 % (24-48) Monocytes (%) (Auto) 6 % (0-9) Eosinophils (%) (Auto) 0 % (0-3) Basophils (%) (Auto) 0 % (0-3) Neutrophils # (Auto) 6.8 x10^3uL (1.8-7.7) Lymphocytes # (Auto) 0.6 x10^3/uL (1.0-4.8) Monocytes # (Auto) 0.5 x10^3/uL (0.0-1.1) Eosinophils # (Auto) 0.0 x10^3/uL (0.0-0.7) Basophils # (Auto) 0.0 x10^3/uL (0.0-0.2) Segmented Neutrophils % 91 % (35-66) Lymphocytes % 4 % (24-48) Monocytes % 4 % (0-10) Basophils % 1 % (0-3) Platelet Estimate Adequate (ADEQUATE) Erythrocyte Sedimentation Rate 58 (0-25) Sodium Level 142 mmol/L (136-145) Potassium Level 4.8 mmol/L (3.5-5.1) Chloride Level 104 mmol/L (98-107) Carbon Dioxide Level 29 mmol/L (21-32) Anion Gap 9 (6-14) Blood Urea Nitrogen 11 mg/dL (7-20) Creatinine 0.8 mg/dL (0.6-1.0) Estimated GFR (Cockcroft-Gault) 70.5 BUN/Creatinine Ratio 14 (6-20) Glucose Level 114 mg/dL (70-99) Calcium Level 9.1 mg/dL (8.5-10.1) Total Bilirubin 0.6 mg/dL (0.2-1.0) Aspartate Amino Transf (AST/SGOT) 22 U/L (15-37) Alanine Aminotransferase (ALT/SGPT) 22 U/L (14-59) Alkaline Phosphatase 95 U/L (46-116) Total Protein 6.7 g/dL (6.4-8.2) Albumin 3.2 g/dL (3.4-5.0) Albumin/Globulin Ratio 0.9 (1.0-1.7) Thyroid Stimulating Hormone (TSH) 0.371 uIU/mL (0.358-3.74) Laboratory Tests Test 09/03/18 16:05 White Blood Count 8.0 x10^3/uL (4.0-11.0) Red Blood Count 4.36 x10^6/uL (3.50-5.40) Hemoglobin 12.8 g/dL (12.0-15.5) Hematocrit 38.2 % (36.0-47.0) Mean Corpuscular Volume 88 fL (79-100) Mean Corpuscular Hemoglobin 29 pg (25-35) Mean Corpuscular Hemoglobin Concent 34 g/dL (31-37) Red Cell Distribution Width 12.9 % (11.5-14.5) Platelet Count 270 x10^3/uL (140-400) Neutrophils (%) (Auto) 85 % (31-73) Lymphocytes (%) (Auto) 8 % (24-48) Monocytes (%) (Auto) 6 % (0-9) Eosinophils (%) (Auto) 0 % (0-3) Basophils (%) (Auto) 0 % (0-3) Neutrophils # (Auto) 6.8 x10^3uL (1.8-7.7) Lymphocytes # (Auto) 0.6 x10^3/uL (1.0-4.8) Monocytes # (Auto) 0.5 x10^3/uL (0.0-1.1) Eosinophils # (Auto) 0.0 x10^3/uL (0.0-0.7) Basophils # (Auto) 0.0 x10^3/uL (0.0-0.2) Segmented Neutrophils % 91 % (35-66) Lymphocytes % 4 % (24-48) Monocytes % 4 % (0-10) Basophils % 1 % (0-3) Platelet Estimate Adequate (ADEQUATE) Erythrocyte Sedimentation Rate 58 (0-25) Sodium Level 142 mmol/L (136-145) Potassium Level 4.8 mmol/L (3.5-5.1) Chloride Level 104 mmol/L (98-107) Carbon Dioxide Level 29 mmol/L (21-32) Anion Gap 9 (6-14) Blood Urea Nitrogen 11 mg/dL (7-20) Creatinine 0.8 mg/dL (0.6-1.0) Estimated GFR (Cockcroft-Gault) 70.5 BUN/Creatinine Ratio 14 (6-20) Glucose Level 114 mg/dL (70-99) Calcium Level 9.1 mg/dL (8.5-10.1) Total Bilirubin 0.6 mg/dL (0.2-1.0) Aspartate Amino Transf (AST/SGOT) 22 U/L (15-37) Alanine Aminotransferase (ALT/SGPT) 22 U/L (14-59) Alkaline Phosphatase 95 U/L (46-116) Total Protein 6.7 g/dL (6.4-8.2) Albumin 3.2 g/dL (3.4-5.0) Albumin/Globulin Ratio 0.9 (1.0-1.7) Thyroid Stimulating Hormone (TSH) 0.371 uIU/mL (0.358-3.74) DYANA PRAKASH MD Sep 03, 2018 18:16
[2018-09-03 19:00] VITALS: BP 127/59
[2018-09-03] MEDS: SIMVASTATIN 40 MG TABLET. PO SCH (20:58)
[2018-09-03] MEDS: LATANOPROST 0.005% OPHTH SOLUTION 2.5ML BOTTLE. OU SCH (20:59)
[2018-09-03 22:43] LABS: BARBITURATES NEG (NEG); BENZODIAZEPINES POS (NEG); CANNABINOIDS NEG (NEG); COCAINE NEG (NEG); METHADONE NEG (NEG); OPIATES NEG (NEG); PHENCYCLIDINE NEG (NEG)
[2018-09-03 22:53] LABS: AMPHETAMINE/METHAMPHETAMINE NEG (NEG)
[2018-09-03 23:00] VITALS: BP 97/50
[2018-09-04 03:00] VITALS: BP 119/54
[2018-09-04] MEDS: ALPRAZolam 0.25 MG TABLET PO PRN (03:29)
[2018-09-04 06:04] LABS: BASO % 0 % (0-3); EOS # 0.1 x10^3/uL (0.0-0.7); EOS % 2 % (0-3); HEMATOCRIT 36.8 % (36.0-47.0); HEMOGLOBIN 12.4 g/dL (12.0-15.5); LYMPH % 16 % (24-48); MEAN CORPUSCULAR HEMOGLOBIN 30 pg (25-35); MEAN CORPUSCULAR HGB CONC 34 g/dL (31-37); MEAN CORPUSCULAR VOLUME 88 fL (79-100); MONO # 0.9 x10^3/uL (0.0-1.1); MONO % 14 % (0-9); NEUT # 4.3 x10^3uL (1.8-7.7); NEUT % 68 % (31-73); PLATELET COUNT 258 x10^3/uL (140-400); RED BLOOD COUNT 4.18 x10^6/uL (3.50-5.40); RED CELL DISTRIBUTION WIDTH 13.1 % (11.5-14.5); WHITE BLOOD COUNT 6.2 x10^3/uL (4.0-11.0)
[2018-09-04 06:27] LABS: ALBUMIN 2.8 g/dL (3.4-5.0); ALBUMIN/GLOBULIN RATIO 0.7 (1.0-1.7); CREATININE 0.8 mg/dL (0.6-1.0); GFR 70.5; POTASSIUM 3.8 mmol/L (3.5-5.1); TOTAL BILIRUBIN 0.6 mg/dL (0.2-1.0); TOTAL PROTEIN 6.6 g/dL (6.4-8.2)
[2018-09-04 07:00] VITALS: BP 136/79
[2018-09-04] MEDS: CHOLECALCIFEROL (VITAMIN D3) 1,000 UNIT TABLET PO SCH (08:46)
[2018-09-04] MEDS: predniSONE 10 MG TABLET PO SCH (08:46)
[2018-09-04] MEDS: LOSARTAN POTASSIUM 50 MG TABLET. PO SCH (08:46)
[2018-09-04] MEDS: ALPRAZolam 0.5 MG TABLET PO SCH ×3 (08:46→20:51)
[2018-09-04] MEDS: amLODIPine BESYLATE 5 MG TABLET PO SCH (08:47)
[2018-09-04] MEDS: BRIMONIDINE 0.2% OPHTH SOLUTION 5ML BOTTLE. OU SCH (08:47)
[2018-09-04] MEDS: TIMOLOL 0.25% OPHTH SOLUTION 5ML BOTTLE. OU SCH (08:47)
[2018-09-04] MEDS: SUCRALFATE 1 GM TABLET. PO SCH ×4 (08:47→20:51)
[2018-09-04] MEDS: ATENOLOL 50 MG TABLET. PO SCH (08:47)
[2018-09-04] MEDS: ASPIRIN ENTERIC COATED 81 MG TABLET.DR. PO SCH (08:47)
[2018-09-04] MEDS ORDERED: NON FORMULARY ITEM (Brimonidine Tartrate/Timolol (Combigan Eye Drops) 5 ML) OP SCH (09:00)
[2018-09-04] MEDS ORDERED: GADOBUTROL 7.5 MMOL/7.5 ML VIAL IV ONE (09:30)
[2018-09-04 11:00] VITALS: BP 134/72
--- NOTE | 2018-09-04 11:20 | RAD ---
MRI of the Brain without and with Contrast 09/04/2018 Clinical History: Confusion with weakness. History of metastatic lung cancer. Technique: Unenhanced T1-weighted sagittal and axial and FLAIR, T2-weighted, gradient echo and diffusion-weighted axial images of the brain were obtained. After the intravenous administration of 4 cc of Gadavist, enhanced T1-weighted axial, sagittal and coronal images of the brain were obtained. Findings: Comparison studies dated 06/01/2016. There is generalized parenchymal atrophy. Patchy and small scattered areas of abnormally increased signal intensity are seen within the periventricular and subcortical white matter of both cerebral hemispheres along with the hollie on the FLAIR and T2-weighted images consistent with areas of small vessel ischemic disease. These have not significantly changed. Small old areas of infarction are seen involving both cerebellar hemispheres. These measure 3 mm to 9 mm in size. A small area encephalomalacia is seen involving posterior left temporal lobe. This measures 1.3 cm in greatest diameter. No acute parenchymal abnormality is seen. No abnormal area of contrast enhancement is noted. No extra-axial fluid collection is seen. There is no MRI evidence of acute ischemia/infarction. Mild mucosal thickening is seen scattered throughout the paranasal sinuses. Normal flow voids are seen within the major vascular structures surrounding the brain parenchyma. Impression: No acute parenchymal abnormality is seen. There is no MRI evidence of metastatic disease involving the brain parenchyma. Electronically signed by: Abdoulaye Mera MD (09/04/2018 11:16 AM) [id number]
--- NOTE | 2018-09-04 11:35 | PDOC ---
PROGRESS NOTES Subjective Subjective Nursing reports pt's mental status was improved this am. (Pt was not in room on the multiple occasions medical student visited) Objective Objective Vital Signs Date Time Temp Pulse Resp B/P (MAP) Pulse Ox O2 Delivery O2 Flow Rate FiO2 09/04/18 08:47 65 136/79 09/04/18 07:00 97.9 18 92 97.9 09/04/18 03:00 Room Air Intake and Output 09/04/18 07:00 Intake Total 120 ml Balance 120 ml Intake Oral 120 ml # Voids 5 Assessment Assessment Change in mental status Plan Plan of Care Head CT & MRI are negative for acute processes & metastatic disease. Chest CT shows increased size of small previously seen RML & RLL opacities. Neuro has ordered an EEG, report is pending. Lab results are generally unremarkable except for an elevated ESR, TSH at the low end of normal. Comment Review of Relevant I have reviewed the following items natalia (where applicable) has been applied. Labs Laboratory Tests Test 09/03/18 16:05 09/03/18 22:29 09/04/18 04:25 White Blood Count 8.0 x10^3/uL (4.0-11.0) 6.2 x10^3/uL (4.0-11.0) Red Blood Count 4.36 x10^6/uL (3.50-5.40) 4.18 x10^6/uL (3.50-5.40) Hemoglobin 12.8 g/dL (12.0-15.5) 12.4 g/dL (12.0-15.5) Hematocrit 38.2 % (36.0-47.0) 36.8 % (36.0-47.0) Mean Corpuscular Volume 88 fL (79-100) 88 fL (79-100) Mean Corpuscular Hemoglobin 29 pg (25-35) 30 pg (25-35) Mean Corpuscular Hemoglobin Concent 34 g/dL (31-37) 34 g/dL (31-37) Red Cell Distribution Width 12.9 % (11.5-14.5) 13.1 % (11.5-14.5) Platelet Count 270 x10^3/uL (140-400) 258 x10^3/uL (140-400) Neutrophils (%) (Auto) 85 % (31-73) 68 % (31-73) Lymphocytes (%) (Auto) 8 % (24-48) 16 % (24-48) Monocytes (%) (Auto) 6 % (0-9) 14 % (0-9) Eosinophils (%) (Auto) 0 % (0-3) 2 % (0-3) Basophils (%) (Auto) 0 % (0-3) 0 % (0-3) Neutrophils # (Auto) 6.8 x10^3uL (1.8-7.7) 4.3 x10^3uL (1.8-7.7) Lymphocytes # (Auto) 0.6 x10^3/uL (1.0-4.8) 1.0 x10^3/uL (1.0-4.8) Monocytes # (Auto) 0.5 x10^3/uL (0.0-1.1) 0.9 x10^3/uL (0.0-1.1) Eosinophils # (Auto) 0.0 x10^3/uL (0.0-0.7) 0.1 x10^3/uL (0.0-0.7) Basophils # (Auto) 0.0 x10^3/uL (0.0-0.2) 0.0 x10^3/uL (0.0-0.2) Segmented Neutrophils % 91 % (35-66) Lymphocytes % 4 % (24-48) Monocytes % 4 % (0-10) Basophils % 1 % (0-3) Platelet Estimate Adequate (ADEQUATE) Erythrocyte Sedimentation Rate 58 (0-25) Sodium Level 142 mmol/L (136-145) 143 mmol/L (136-145) Potassium Level 4.8 mmol/L (3.5-5.1) 3.8 mmol/L (3.5-5.1) Chloride Level 104 mmol/L (98-107) 105 mmol/L (98-107) Carbon Dioxide Level 29 mmol/L (21-32) 28 mmol/L (21-32) Anion Gap 9 (6-14) 10 (6-14) Blood Urea Nitrogen 11 mg/dL (7-20) 11 mg/dL (7-20) Creatinine 0.8 mg/dL (0.6-1.0) 0.8 mg/dL (0.6-1.0) Estimated GFR (Cockcroft-Gault) 70.5 70.5 BUN/Creatinine Ratio 14 (6-20) 14 (6-20) Glucose Level 114 mg/dL (70-99) 79 mg/dL (70-99) Calcium Level 9.1 mg/dL (8.5-10.1) 9.0 mg/dL (8.5-10.1) Total Bilirubin 0.6 mg/dL (0.2-1.0) 0.6 mg/dL (0.2-1.0) Aspartate Amino Transf (AST/SGOT) 22 U/L (15-37) 24 U/L (15-37) Alanine Aminotransferase (ALT/SGPT) 22 U/L (14-59) 20 U/L (14-59) Alkaline Phosphatase 95 U/L (46-116) 86 U/L (46-116) Total Protein 6.7 g/dL (6.4-8.2) 6.6 g/dL (6.4-8.2) Albumin 3.2 g/dL (3.4-5.0) 2.8 g/dL (3.4-5.0) Albumin/Globulin Ratio 0.9 (1.0-1.7) 0.7 (1.0-1.7) Thyroid Stimulating Hormone (TSH) 0.371 uIU/mL (0.358-3.74) Urine Opiates Screen Neg (NEG) Urine Methadone Screen Neg (NEG) Urine Barbiturates Neg (NEG) Urine Phencyclidine Screen Neg (NEG) Urine Amphetamine/Methamphetamine Neg (NEG) Urine Benzodiazepines Screen Pos (NEG) Urine Cocaine Screen Neg (NEG) Urine Cannabinoids Screen Neg (NEG) Urine Ethyl Alcohol Neg (NEG) Laboratory Tests Test 09/03/18 16:05 09/03/18 22:29 09/04/18 04:25 White Blood Count 8.0 x10^3/uL (4.0-11.0) 6.2 x10^3/uL (4.0-11.0) Red Blood Count 4.36 x10^6/uL (3.50-5.40) 4.18 x10^6/uL (3.50-5.40) Hemoglobin 12.8 g/dL (12.0-15.5) 12.4 g/dL (12.0-15.5) Hematocrit 38.2 % (36.0-47.0) 36.8 % (36.0-47.0) Mean Corpuscular Volume 88 fL (79-100) 88 fL (79-100) Mean Corpuscular Hemoglobin 29 pg (25-35) 30 pg (25-35) Mean Corpuscular Hemoglobin Concent 34 g/dL (31-37) 34 g/dL (31-37) Red Cell Distribution Width 12.9 % (11.5-14.5) 13.1 % (11.5-14.5) Platelet Count 270 x10^3/uL (140-400) 258 x10^3/uL (140-400) Neutrophils (%) (Auto) 85 % (31-73) 68 % (31-73) Lymphocytes (%) (Auto) 8 % (24-48) 16 % (24-48) Monocytes (%) (Auto) 6 % (0-9) 14 % (0-9) Eosinophils (%) (Auto) 0 % (0-3) 2 % (0-3) Basophils (%) (Auto) 0 % (0-3) 0 % (0-3) Neutrophils # (Auto) 6.8 x10^3uL (1.8-7.7) 4.3 x10^3uL (1.8-7.7) Lymphocytes # (Auto) 0.6 x10^3/uL (1.0-4.8) 1.0 x10^3/uL (1.0-4.8) Monocytes # (Auto) 0.5 x10^3/uL (0.0-1.1) 0.9 x10^3/uL (0.0-1.1) Eosinophils # (Auto) 0.0 x10^3/uL (0.0-0.7) 0.1 x10^3/uL (0.0-0.7) Basophils # (Auto) 0.0 x10^3/uL (0.0-0.2) 0.0 x10^3/uL (0.0-0.2) Segmented Neutrophils % 91 % (35-66) Lymphocytes % 4 % (24-48) Monocytes % 4 % (0-10) Basophils % 1 % (0-3) Platelet Estimate Adequate (ADEQUATE) Erythrocyte Sedimentation Rate 58 (0-25) Sodium Level 142 mmol/L (136-145) 143 mmol/L (136-145) Potassium Level 4.8 mmol/L (3.5-5.1) 3.8 mmol/L (3.5-5.1) Chloride Level 104 mmol/L (98-107) 105 mmol/L (98-107) Carbon Dioxide Level 29 mmol/L (21-32) 28 mmol/L (21-32) Anion Gap 9 (6-14) 10 (6-14) Blood Urea Nitrogen 11 mg/dL (7-20) 11 mg/dL (7-20) Creatinine 0.8 mg/dL (0.6-1.0) 0.8 mg/dL (0.6-1.0) Estimated GFR (Cockcroft-Gault) 70.5 70.5 BUN/Creatinine Ratio 14 (6-20) 14 (6-20) Glucose Level 114 mg/dL (70-99) 79 mg/dL (70-99) Calcium Level 9.1 mg/dL (8.5-10.1) 9.0 mg/dL (8.5-10.1) Total Bilirubin 0.6 mg/dL (0.2-1.0) 0.6 mg/dL (0.2-1.0) Aspartate Amino Transf (AST/SGOT) 22 U/L (15-37) 24 U/L (15-37) Alanine Aminotransferase (ALT/SGPT) 22 U/L (14-59) 20 U/L (14-59) Alkaline Phosphatase 95 U/L (46-116) 86 U/L (46-116) Total Protein 6.7 g/dL (6.4-8.2) 6.6 g/dL (6.4-8.2) Albumin 3.2 g/dL (3.4-5.0) 2.8 g/dL (3.4-5.0) Albumin/Globulin Ratio 0.9 (1.0-1.7) 0.7 (1.0-1.7) Thyroid Stimulating Hormone (TSH) 0.371 uIU/mL (0.358-3.74) Urine Opiates Screen Neg (NEG) Urine Methadone Screen Neg (NEG) Urine Barbiturates Neg (NEG) Urine Phencyclidine Screen Neg (NEG) Urine Amphetamine/Methamphetamine Neg (NEG) Urine Benzodiazepines Screen Pos (NEG) Urine Cocaine Screen Neg (NEG) Urine Cannabinoids Screen Neg (NEG) Urine Ethyl Alcohol Neg (NEG) Medications Current Medications Sodium Chloride 1,000 ml @ 60 mls/hr [id number] IV Last administered on at 16:18; Start 09/03/18 at 15:00 Alprazolam (Xanax) 0.5 mg TID PO Last administered on 09/04/18 08:46; Start 09/03/18 at 16:30 Aspirin (Ecotrin) 81 mg DAILY PO Last administered on 09/04/18 08:47; Start 09/03/18 at 16:30 Atenolol (Tenormin) 50 mg DAILY PO Last administered on 09/04/18 08:47; Start 09/03/18 at 16:30 Vitamin D (Vitamin D3) 2,000 unit DAILY PO Last administered on 09/04/18 08: 46; Start 09/03/18 at 16:30 Prednisone (Prednisone) 10 mg DAILY PO Last administered on 09/04/18 08:46; Start 09/03/18 at 16:30 Non-Formulary Medication (Brimonidine Tartrate/Timolol (Combigan Eye Drops)) 5 ml DAILY OP ; Start 09/04/18 at 09:00; Status UNV Citalopram Hydrobromide (CeleXA) 20 mg DAILYWLUN PO Last administered on at 16:17; Start 09/03/18 at 16:30 Latanoprost (Xalatan) 1 drop QHS OU Last administered on 09/03/18at 20:59; Start 09/03/18 at 21:00 Sucralfate (Carafate) 1 gm QID PO Last administered on 09/04/18 08:47; Start 09/03/18 at 17:00 Amlodipine Besylate (Norvasc) 5 mg DAILY PO Last administered on 09/04/18 08: 47; Start 09/03/18 at 16:30 Simvastatin (Zocor) 40 mg QHS PO Last administered on 09/03/18at 20:58; Start 09/03/18 at 21:00 Losartan Potassium (Cozaar) 100 mg DAILY PO Last administered on 09/04/18at 08: 46; Start 09/03/18 at 16:30 Brimonidine Tartrate (Alphagan) 1 drop DAILY OU Last administered on at 08:47; Start 09/04/18 at 09:00 Timolol Maleate (Timoptic 0.25% Ophth) 1 drop DAILY OU Last administered on at 08:47; Start 09/04/18 at 09:00 Alprazolam (Xanax) 0.25 mg PRN Q6HRS PRN PO ANXIETY / AGITATION Last administered on 09/04/18at 03:29; Start 09/03/18 at 17:15 Acetaminophen (Tylenol) 325 mg PRN Q6HRS PRN PO MILD PAIN / TEMP; Start at 17:15 Gadobutrol (Gadavist) 4 mmol 1X ONCE IV Last administered on 09/04/18at 09:43 ; Start 09/04/18 at 09:30; Stop 09/04/18 at 09:31; Status DC Active Scripts Active Reglan (Metoclopramide Hcl) 10 Mg Tablet 1 Tab PO TID PRN Zofran (Ondansetron Hcl) 4 Mg Tablet 4 Mg PO PRN TID PRN nausea/vomiting [place] 5-325 Tablet (Acetaminophen/Hydrocodone Bitart) 1 Each Tablet 1 Tab PO PRN Q6HRS PRN Reported Cozaar (Losartan Potassium) 100 Mg Tablet 100 Mg PO DAILY Zocor (Simvastatin) 40 Mg Tablet 1 Tab PO DAILY Sucralfate 1 Gm Tablet 1 Tab PO QID Alprazolam 0.5 Mg Tablet 1 Tab PO TID Atenolol 50 Mg Tablet 1 Tab PO DAILY Protonix (Pantoprazole Sodium) 20 Mg Tablet.dr 2 Tab PO QHS Carafate (Sucralfate) 1 Gm Tablet 1 Tab PO TIDAC Lexapro (Escitalopram Oxalate) 10 Mg Tablet 1 Tab PO DAILYWLUN Latanoprost 2.5 Ml Drops 1 Drop EACHEYE QHS Combigan Eye Drops (Brimonidine Tartrate/Timolol) 5 Ml Drops 5 Ml OP DAILY Prednisone 20 Mg Tablet 10 Mg PO DAILY Amlodipine Besylate 5 Mg Tablet 5 Mg PO DAILY Vitamin D3 (Cholecalciferol (Vitamin D3)) 1,000 Unit Tablet 2,000 Unit PO DAILY Alprazolam 0.5 Mg Tablet 1 Tab PO QIDPRN PRN Aspir 81 (Aspirin) 81 Mg Tablet. 1 Tab PO DAILY Vitals/I & O Vital Sign - Last 24 Hours 09/03/18 09/03/18 09/03/18 09/03/18 15:00 16:11 16:15 16:54 Temp 97.9 97.9 Pulse 62 62 62 Resp 18 B/P (MAP) 114/63 (80) 114/63 114/63 Pulse Ox 94 O2 Delivery Room Air Room Air 09/03/18 09/03/18 09/03/18 09/04/18 19:00 20:00 23:00 03:00 Temp 97.7 97.8 98.1 97.7 97.8 98.1 Pulse 78 60 69 Resp 18 18 18 B/P (MAP) 127/59 (81) 97/50 (66) 119/54 (75) Pulse Ox 94 94 93 O2 Delivery Room Air Room Air Room Air Room Air 09/04/18 09/04/18 09/04/18 09/04/18 07:00 08:46 08:47 08:47 Temp 97.9 97.9 Pulse 65 65 65 65 Resp 18 B/P (MAP) 136/79 (98) 136/79 136/79 136/79 Pulse Ox 92 Intake and Output 09/03/18 09/03/18 09/04/18 15:00 23:00 07:00 Intake Total 120 ml Balance 120 ml JEAN GRAY MD Sep 04, 2018 11:34
--- NOTE | 2018-09-04 12:58 | EEG ---
DATE OF SERVICE: 09/04/2018 EEG NUMBER: [id number]. OBJECTIVE: This is a 73-year-old female patient with history of mental status changes, abnormal shaking movements and history of lung cancer. EEG was requested to evaluate cerebral activity and to help rule out seizure. METHODS: Twenty electrodes were applied according to the international 10-20 electrode placement system. EKG monitoring, hyperventilation, intermittent photic stimulation, monopolar and bipolar montages are routinely utilized. The record was obtained on a digital system with video monitoring. FINDINGS: 1. Background: The patient was recorded in the awake, drowsy, and brief sleep states. The overall background amplitude is 10-30 microvolts. A posterior dominant rhythm of 8 Hz is observed. 2. Abnormalities: No specific epileptiform discharge or electrographic seizure is seen. No focal or diffuse slowing. 3. Activation: Hyperventilation was performed with good efforts and normal response. Intermittent photic stimulation was performed with photic driving. No specific epileptiform discharge or electrographic seizure induced by hyperventilation or intermittent photic stimulation. IMPRESSION: This EEG is a normal study for the awake, drowsy, and brief sleep states. No focal, lateralizing, specific epileptiform discharge or electrographic seizure is seen. DYANA PRAKASH MD DR: ADALBERTO/blanquita JOB#: [id number] / [id number] SARWAT
[2018-09-04] MEDS: CITALOPRAM 20 MG TABLET. PO SCH (13:56)
[2018-09-04] MEDS: IV 1/2 NORMAL SALINE 1,000 ML IV SCH (13:57)
[2018-09-04 15:00] VITALS: BP 119/62
--- NOTE | 2018-09-04 16:06 | PDOC ---
PROGRESS NOTES Assessment Assessment Metabolic encephalopathy. Tremors. ET. Lung cancer. Erosive esophagitis, gastritis, duodenitis. COPD. CAD. TX. HLD. Chronic T3, T4, T5, T8, and T9 compression fractures. 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 Old right cerebellar lacunar infarct. No evidence of acute CVA and metastatic brain disease this time. RECOMMENDATIONS/PLAN: Continue ASA daily. Continue Zocor HS. Continue Xanax. Treat medical diseases. EEG on 09/04/18: Normal study. HISTORY OF THE PRESENT ILLNESS: This is a 73-year-old female with history of long-standing COPD, lung cancer, coronary artery disease and other medical diseases. She recently had admissions for episodes of pancreatitis. She has tremor like movements in the past 2 weeks. She was noted confused and her daughter brought her to cardiac clinic then was admitted into hospital for further evaluation. Past Medical History Cardiovascular: TX Pulmonary: COPD Musculoskeletal: Osteoarthritis Rheumatologic: Rheumatoid arthritis ENT: Other (Glaucoma, macular degeneration) Past Surgical History Hysterectomy Family History Cancer, Coronary Artery Disease, Other (pulmonary fibrosis) Allergies Coded Allergies: azithromycin (Verified Allergy, Severe, Anaphylaxis, 09/25/14) erythromycin base (Verified Allergy, Severe, Anaphylaxis, 09/25/14) iodine (Verified Allergy, Severe, SWELLING, SOA, 09/22/14) THROAT CLOSES UP oxytetracycline (Verified Allergy, Severe, Anaphylaxis, 09/25/14) tetracycline (Verified Allergy, Severe, Anaphylaxis, 09/25/14) egg (Verified Allergy, Intermediate, hives, 09/25/14) "eggs in vaccines" codeine (Verified Allergy, Mild, 09/17/14) MEDICATIONS: Refer to [facility] SOCIAL HISTORY: Lives at home. Denies current smoking, drinking, and illicit drug use. She smoked cigarettes before, but quit several months ago. REVIEW OF SYSTEMS: Constitutional: Mild malnutrition.. Head: No traumatic brain or head injury. Skin: No edema, or rash. Ear: No infection. Eyes: No vision loss or color blindness. Nose: No bleeding or purulent discharges. Hearing: Mild hearing decrease. Neck: No injury. Breast: No history of cancer, masses,or discharges. Cardiac: CAD. Pulmonary: COPD, lung cancer. GI: No GI ulcer, GI bleeding. Urinary/genital: UTI. Endocrinologic: No cousin face, craniofacial dysmorphism, polydactyly. Skeletomuscular: Generalized weakness. Neurological: see HP. Psychiatric: Denies drug use/abuse. Otherwise, not [id number] review of systems. PHYSICAL EXAMINATION: General appearance is in subacute distress. HEENT: Normocephalic and nontraumatic. Eyes, nose, ears, and throat are unremarkable. Neck is supple. No lymphadenopathy. No bruits are heard over the carotid artery. No crepitus. Cardiovascular: S1, S2, regular rate and rhythm. Pulmonary: Clear to auscultation bilaterally. Abdomen: Bowel sounds are positive. Abdomen is soft, nontender, and nondistended. Extremities: No rash, lesions, or edema. No restriction of range of motion NEUROLOGICAL EXAMINATION: Awake. Partially oriented to time, but knew place and person. PERRL. EOMI. CN: no focal findings. Muscle tone: within normal. Muscle strength: 5- DTR: 2 Plantar reflex: Flexor response bilaterally Gait: not examined in bed. Sensory exam: no abnormal findings. No acute cerebellar signs elicited. F-T-N test fine. Objective Objective Vital Signs Date Time Temp Pulse Resp B/P (MAP) Pulse Ox O2 Delivery O2 Flow Rate FiO2 09/04/18 11:00 97.9 61 18 134/72 (92) 90 Room Air 97.9 Intake and Output 09/04/18 07:00 Intake Total 120 ml Balance 120 ml Intake Oral 120 ml # Voids 5 Vitals Signs Vitals VS - Last 72 Hours, by Label Date Time Temp Pulse Resp B/P (MAP) Pulse Ox O2 Delivery O2 Flow Rate FiO2 09/04/18 11:00 97.9 61 18 134/72 (92) 90 Room Air 97.9 09/04/18 08:47 65 136/79 09/04/18 08:47 65 136/79 09/04/18 08:46 65 136/79 09/04/18 08:00 Room Air 09/04/18 07:00 97.9 65 18 136/79 (98) 92 97.9 09/04/18 03:00 98.1 69 18 119/54 (75) 93 Room Air 98.1 09/03/18 23:00 97.8 60 18 97/50 (66) 94 Room Air 97.8 09/03/18 20:00 Room Air 09/03/18 19:00 97.7 78 18 127/59 (81) 94 Room Air 97.7 09/03/18 16:54 Room Air 09/03/18 16:15 62 114/63 09/03/18 16:11 62 114/63 09/03/18 15:00 97.9 62 18 114/63 (80) 94 Room Air 97.9 Laboratory Laboratory Laboratory Tests Test 09/03/18 16:05 09/03/18 22:29 09/04/18 04:25 White Blood Count 8.0 x10^3/uL (4.0-11.0) 6.2 x10^3/uL (4.0-11.0) Red Blood Count 4.36 x10^6/uL (3.50-5.40) 4.18 x10^6/uL (3.50-5.40) Hemoglobin 12.8 g/dL (12.0-15.5) 12.4 g/dL (12.0-15.5) Hematocrit 38.2 % (36.0-47.0) 36.8 % (36.0-47.0) Mean Corpuscular Volume 88 fL (79-100) 88 fL (79-100) Mean Corpuscular Hemoglobin 29 pg (25-35) 30 pg (25-35) Mean Corpuscular Hemoglobin Concent 34 g/dL (31-37) 34 g/dL (31-37) Red Cell Distribution Width 12.9 % (11.5-14.5) 13.1 % (11.5-14.5) Platelet Count 270 x10^3/uL (140-400) 258 x10^3/uL (140-400) Neutrophils (%) (Auto) 85 % (31-73) 68 % (31-73) Lymphocytes (%) (Auto) 8 % (24-48) 16 % (24-48) Monocytes (%) (Auto) 6 % (0-9) 14 % (0-9) Eosinophils (%) (Auto) 0 % (0-3) 2 % (0-3) Basophils (%) (Auto) 0 % (0-3) 0 % (0-3) Neutrophils # (Auto) 6.8 x10^3uL (1.8-7.7) 4.3 x10^3uL (1.8-7.7) Lymphocytes # (Auto) 0.6 x10^3/uL (1.0-4.8) 1.0 x10^3/uL (1.0-4.8) Monocytes # (Auto) 0.5 x10^3/uL (0.0-1.1) 0.9 x10^3/uL (0.0-1.1) Eosinophils # (Auto) 0.0 x10^3/uL (0.0-0.7) 0.1 x10^3/uL (0.0-0.7) Basophils # (Auto) 0.0 x10^3/uL (0.0-0.2) 0.0 x10^3/uL (0.0-0.2) Segmented Neutrophils % 91 % (35-66) Lymphocytes % 4 % (24-48) Monocytes % 4 % (0-10) Basophils % 1 % (0-3) Platelet Estimate Adequate (ADEQUATE) Erythrocyte Sedimentation Rate 58 (0-25) Sodium Level 142 mmol/L (136-145) 143 mmol/L (136-145) Potassium Level 4.8 mmol/L (3.5-5.1) 3.8 mmol/L (3.5-5.1) Chloride Level 104 mmol/L (98-107) 105 mmol/L (98-107) Carbon Dioxide Level 29 mmol/L (21-32) 28 mmol/L (21-32) Anion Gap 9 (6-14) 10 (6-14) Blood Urea Nitrogen 11 mg/dL (7-20) 11 mg/dL (7-20) Creatinine 0.8 mg/dL (0.6-1.0) 0.8 mg/dL (0.6-1.0) Estimated GFR (Cockcroft-Gault) 70.5 70.5 BUN/Creatinine Ratio 14 (6-20) 14 (6-20) Glucose Level 114 mg/dL (70-99) 79 mg/dL (70-99) Calcium Level 9.1 mg/dL (8.5-10.1) 9.0 mg/dL (8.5-10.1) Total Bilirubin 0.6 mg/dL (0.2-1.0) 0.6 mg/dL (0.2-1.0) Aspartate Amino Transf (AST/SGOT) 22 U/L (15-37) 24 U/L (15-37) Alanine Aminotransferase (ALT/SGPT) 22 U/L (14-59) 20 U/L (14-59) Alkaline Phosphatase 95 U/L (46-116) 86 U/L (46-116) Total Protein 6.7 g/dL (6.4-8.2) 6.6 g/dL (6.4-8.2) Albumin 3.2 g/dL (3.4-5.0) 2.8 g/dL (3.4-5.0) Albumin/Globulin Ratio 0.9 (1.0-1.7) 0.7 (1.0-1.7) Thyroid Stimulating Hormone (TSH) 0.371 uIU/mL (0.358-3.74) Urine Opiates Screen Neg (NEG) Urine Methadone Screen Neg (NEG) Urine Barbiturates Neg (NEG) Urine Phencyclidine Screen Neg (NEG) Urine Amphetamine/Methamphetamine Neg (NEG) Urine Benzodiazepines Screen Pos (NEG) Urine Cocaine Screen Neg (NEG) Urine Cannabinoids Screen Neg (NEG) Urine Ethyl Alcohol Neg (NEG) Medication Medications Current Medications Acetaminophen (Tylenol) 325 mg PRN Q6HRS PRN PO MILD PAIN / TEMP; Start at 17:15 Alprazolam (Xanax) 0.25 mg PRN Q6HRS PRN PO ANXIETY / AGITATION Last administered on 09/04/18 03:29; Start 09/03/18 at 17:15 Alprazolam (Xanax) 0.5 mg TID PO Last administered on 09/04/18 13:56; Start 09/03/18 at 16:30 Amlodipine Besylate (Norvasc) 5 mg DAILY PO Last administered on 09/04/18 08: 47; Start 09/03/18 at 16:30 Aspirin (Ecotrin) 81 mg DAILY PO Last administered on 09/04/18 08:47; Start 09/03/18 at 16:30 Atenolol (Tenormin) 50 mg DAILY PO Last administered on 09/04/18 08:47; Start 09/03/18 at 16:30 Brimonidine Tartrate (Alphagan) 1 drop DAILY OU Last administered on 08:47; Start 09/04/18 at 09:00 Citalopram Hydrobromide (CeleXA) 20 mg DAILYWLUN PO Last administered on 13:56; Start 09/03/18 at 16:30 Gadobutrol (Gadavist) 4 mmol 1X ONCE IV Last administered on 09/04/18 09:43 ; Start 09/04/18 at 09:30; Stop 09/04/18 at 09:31; Status DC Latanoprost (Xalatan) 1 drop QHS OU Last administered on 09/03/18 20:59; Start 09/03/18 at 21:00 Losartan Potassium (Cozaar) 100 mg DAILY PO Last administered on 09/04/18 08: 46; Start 09/03/18 at 16:30 Non-Formulary Medication (Brimonidine Tartrate/Timolol (Combigan Eye Drops)) 5 ml DAILY OP ; Start 09/04/18 at 09:00; Status UNV Prednisone (Prednisone) 10 mg DAILY PO Last administered on 09/04/18 08:46; Start 09/03/18 at 16:30 Simvastatin (Zocor) 40 mg QHS PO Last administered on 09/03/18 20:58; Start 09/03/18 at 21:00 Sucralfate (Carafate) 1 gm QID PO Last administered on 09/04/18 13:57; Start 09/03/18 at 17:00 Timolol Maleate (Timoptic 0.25% Oph) 1 drop DAILY OU Last administered on 08:47; Start 09/04/18 at 09:00 Vitamin D (Vitamin D3) 2,000 unit DAILY PO Last administered on 09/04/18 08: 46; Start 09/03/18 at 16:30 Comment Review of Relevant I have reviewed the following items natalia (where applicable) has been applied. DYANA PRAKASH MD Sep 04, 2018 16:06
[2018-09-04 19:00] VITALS: BP 93/47
[2018-09-04] MEDS: LATANOPROST 0.005% OPHTH SOLUTION 2.5ML BOTTLE. OU SCH (20:51)
[2018-09-04] MEDS: SIMVASTATIN 40 MG TABLET. PO SCH (20:51)
[2018-09-04 23:00] VITALS: BP 122/58
[2018-09-05] MEDS: IV 1/2 NORMAL SALINE 1,000 ML IV SCH ×3 (00:20→17:00)
[2018-09-05] MEDS ORDERED: ACETAMINOPHEN 325 MG TABLET. PO ONE (02:45)
[2018-09-05 03:00] VITALS: BP 133/50
[2018-09-05] MEDS: ALPRAZolam 0.25 MG TABLET PO PRN (04:38)
[2018-09-05 07:00] VITALS: BP 135/67
[2018-09-05] MEDS: BRIMONIDINE 0.2% OPHTH SOLUTION 5ML BOTTLE. OU SCH (07:47)
[2018-09-05] MEDS: TIMOLOL 0.25% OPHTH SOLUTION 5ML BOTTLE. OU SCH (07:47)
--- NOTE | 2018-09-05 08:46 | PDOC ---
PROGRESS NOTES Subjective Subjective Pt is alert & oriented x3. Complaining of new onset nausea this am. Objective Objective Vital Signs Date Time Temp Pulse Resp B/P (MAP) Pulse Ox O2 Delivery O2 Flow Rate FiO2 09/05/18 03:00 97.7 60 18 133/50 (77) 95 Room Air 97.7 Intake and Output 09/05/18 07:00 # Voids 2 Physical Exam Physical Exam No significant cardiac changes. Heart: Regular rate, Normal S1, Normal S2 Lungs: Clear to auscultation Plan Plan of Care No acute processes discovered thus far. Neuro indicates EEG was normal. Suspect AMS may be due to metabolic encephalopathy or medication related Consult GI, Dr Moncada, regarding nausea This CT of the chest was reviewed and in view of the notes that were seen on the right side and that appeared to be larger I would like to get a consult from the planning supervisor to evaluate this given her history. Comment Review of Relevant I have reviewed the following items natalia (where applicable) has been applied. Labs Laboratory Tests Test 09/03/18 16:05 09/03/18 22:29 09/04/18 04:25 White Blood Count 8.0 x10^3/uL (4.0-11.0) 6.2 x10^3/uL (4.0-11.0) Red Blood Count 4.36 x10^6/uL (3.50-5.40) 4.18 x10^6/uL (3.50-5.40) Hemoglobin 12.8 g/dL (12.0-15.5) 12.4 g/dL (12.0-15.5) Hematocrit 38.2 % (36.0-47.0) 36.8 % (36.0-47.0) Mean Corpuscular Volume 88 fL (79-100) 88 fL (79-100) Mean Corpuscular Hemoglobin 29 pg (25-35) 30 pg (25-35) Mean Corpuscular Hemoglobin Concent 34 g/dL (31-37) 34 g/dL (31-37) Red Cell Distribution Width 12.9 % (11.5-14.5) 13.1 % (11.5-14.5) Platelet Count 270 x10^3/uL (140-400) 258 x10^3/uL (140-400) Neutrophils (%) (Auto) 85 % (31-73) 68 % (31-73) Lymphocytes (%) (Auto) 8 % (24-48) 16 % (24-48) Monocytes (%) (Auto) 6 % (0-9) 14 % (0-9) Eosinophils (%) (Auto) 0 % (0-3) 2 % (0-3) Basophils (%) (Auto) 0 % (0-3) 0 % (0-3) Neutrophils # (Auto) 6.8 x10^3uL (1.8-7.7) 4.3 x10^3uL (1.8-7.7) Lymphocytes # (Auto) 0.6 x10^3/uL (1.0-4.8) 1.0 x10^3/uL (1.0-4.8) Monocytes # (Auto) 0.5 x10^3/uL (0.0-1.1) 0.9 x10^3/uL (0.0-1.1) Eosinophils # (Auto) 0.0 x10^3/uL (0.0-0.7) 0.1 x10^3/uL (0.0-0.7) Basophils # (Auto) 0.0 x10^3/uL (0.0-0.2) 0.0 x10^3/uL (0.0-0.2) Segmented Neutrophils % 91 % (35-66) Lymphocytes % 4 % (24-48) Monocytes % 4 % (0-10) Basophils % 1 % (0-3) Platelet Estimate Adequate (ADEQUATE) Erythrocyte Sedimentation Rate 58 (0-25) Sodium Level 142 mmol/L (136-145) 143 mmol/L (136-145) Potassium Level 4.8 mmol/L (3.5-5.1) 3.8 mmol/L (3.5-5.1) Chloride Level 104 mmol/L (98-107) 105 mmol/L (98-107) Carbon Dioxide Level 29 mmol/L (21-32) 28 mmol/L (21-32) Anion Gap 9 (6-14) 10 (6-14) Blood Urea Nitrogen 11 mg/dL (7-20) 11 mg/dL (7-20) Creatinine 0.8 mg/dL (0.6-1.0) 0.8 mg/dL (0.6-1.0) Estimated GFR (Cockcroft-Gault) 70.5 70.5 BUN/Creatinine Ratio 14 (6-20) 14 (6-20) Glucose Level 114 mg/dL (70-99) 79 mg/dL (70-99) Calcium Level 9.1 mg/dL (8.5-10.1) 9.0 mg/dL (8.5-10.1) Total Bilirubin 0.6 mg/dL (0.2-1.0) 0.6 mg/dL (0.2-1.0) Aspartate Amino Transf (AST/SGOT) 22 U/L (15-37) 24 U/L (15-37) Alanine Aminotransferase (ALT/SGPT) 22 U/L (14-59) 20 U/L (14-59) Alkaline Phosphatase 95 U/L (46-116) 86 U/L (46-116) Total Protein 6.7 g/dL (6.4-8.2) 6.6 g/dL (6.4-8.2) Albumin 3.2 g/dL (3.4-5.0) 2.8 g/dL (3.4-5.0) Albumin/Globulin Ratio 0.9 (1.0-1.7) 0.7 (1.0-1.7) Thyroid Stimulating Hormone (TSH) 0.371 uIU/mL (0.358-3.74) Urine Opiates Screen Neg (NEG) Urine Methadone Screen Neg (NEG) Urine Barbiturates Neg (NEG) Urine Phencyclidine Screen Neg (NEG) Urine Amphetamine/Methamphetamine Neg (NEG) Urine Benzodiazepines Screen Pos (NEG) Urine Cocaine Screen Neg (NEG) Urine Cannabinoids Screen Neg (NEG) Urine Ethyl Alcohol Neg (NEG) Medications Current Medications Sodium Chloride 1,000 ml @ 60 mls/hr [id number] IV Last administered on at 07:49; Start 09/03/18 at 15:00 Alprazolam (Xanax) 0.5 mg TID PO Last administered on 09/04/18at 20:51; Start 09/03/18 at 16:30 Aspirin (Ecotrin) 81 mg DAILY PO Last administered on 09/04/18at 08:47; Start 09/03/18 at 16:30 Atenolol (Tenormin) 50 mg DAILY PO Last administered on 09/04/18 08:47; Start 09/03/18 at 16:30 Vitamin D (Vitamin D3) 2,000 unit DAILY PO Last administered on 09/04/18 08: 46; Start 09/03/18 at 16:30 Prednisone (Prednisone) 10 mg DAILY PO Last administered on 09/04/18 08:46; Start 09/03/18 at 16:30 Non-Formulary Medication (Brimonidine Tartrate/Timolol (Combigan Eye Drops)) 5 ml DAILY OP ; Start 09/04/18 at 09:00; Status UNV Citalopram Hydrobromide (CeleXA) 20 mg DAILYWLUN PO Last administered on 13:56; Start 09/03/18 at 16:30 Latanoprost (Xalatan) 1 drop QHS OU Last administered on 09/04/18 20:51; Start 09/03/18 at 21:00 Sucralfate (Carafate) 1 gm QID PO Last administered on 09/04/18 20:51; Start 09/03/18 at 17:00 Amlodipine Besylate (Norvasc) 5 mg DAILY PO Last administered on 09/04/18 08: 47; Start 09/03/18 at 16:30 Simvastatin (Zocor) 40 mg QHS PO Last administered on 09/04/18 20:51; Start 09/03/18 at 21:00 Losartan Potassium (Cozaar) 100 mg DAILY PO Last administered on 09/04/18 08: 46; Start 09/03/18 at 16:30 Brimonidine Tartrate (Alphagan) 1 drop DAILY OU Last administered on 07:47; Start 09/04/18 at 09:00 Timolol Maleate (Timoptic 0.25% Oph) 1 drop DAILY OU Last administered on 07:47; Start 09/04/18 at 09:00 Alprazolam (Xanax) 0.25 mg PRN Q6HRS PRN PO ANXIETY / AGITATION Last administered on 09/05/18 04:38; Start 09/03/18 at 17:15 Acetaminophen (Tylenol) 325 mg PRN Q6HRS PRN PO MILD PAIN / TEMP Last administered on 09/05/18at 02:14; Start 09/03/18 at 17:15 Gadobutrol (Gadavist) 4 mmol 1X ONCE IV Last administered on 09/04/18at 09:43 ; Start 09/04/18 at 09:30; Stop 09/04/18 at 09:31; Status DC Acetaminophen (Tylenol) 325 mg 1X ONCE PO Last administered on 09/05/18at 02: 43; Start 09/05/18 at 02:45; Stop 09/05/18 at 02:46; Status DC Active Scripts Active Reglan (Metoclopramide Hcl) 10 Mg Tablet 1 Tab PO TID PRN Zofran (Ondansetron Hcl) 4 Mg Tablet 4 Mg PO PRN TID PRN nausea/vomiting Lacey 5-325 Tablet (Acetaminophen/Hydrocodone Bitart) 1 Each Tablet 1 Tab PO PRN Q6HRS PRN Reported Cozaar (Losartan Potassium) 100 Mg Tablet 100 Mg PO DAILY Zocor (Simvastatin) 40 Mg Tablet 1 Tab PO DAILY Sucralfate 1 Gm Tablet 1 Tab PO QID Alprazolam 0.5 Mg Tablet 1 Tab PO TID Atenolol 50 Mg Tablet 1 Tab PO DAILY Protonix (Pantoprazole Sodium) 20 Mg Tablet.dr 2 Tab PO QHS Carafate (Sucralfate) 1 Gm Tablet 1 Tab PO TIDAC Lexapro (Escitalopram Oxalate) 10 Mg Tablet 1 Tab PO DAILYWLUN Latanoprost 2.5 Ml Drops 1 Drop EACHEYE QHS Combigan Eye Drops (Brimonidine Tartrate/Timolol) 5 Ml Drops 5 Ml OP DAILY Prednisone 20 Mg Tablet 10 Mg PO DAILY Amlodipine Besylate 5 Mg Tablet 5 Mg PO DAILY Vitamin D3 (Cholecalciferol (Vitamin D3)) 1,000 Unit Tablet 2,000 Unit PO DAILY Alprazolam 0.5 Mg Tablet 1 Tab PO QIDPRN PRN Aspir 81 (Aspirin) 81 Mg Tablet.dr 1 Tab PO DAILY Vitals/I & O Vital Sign - Last 24 Hours 09/04/18 09/04/18 09/04/18 09/04/18 08:46 08:47 08:47 11:00 Temp 97.9 97.9 Pulse 65 65 65 61 Resp 18 B/P (MAP) 136/79 136/79 136/79 134/72 (92) Pulse Ox 90 O2 Delivery Room Air 09/04/18 09/04/18 09/04/18 09/04/18 15:00 19:00 20:00 23:00 Temp 97.6 97.6 97.9 97.6 97.6 97.9 Pulse 64 71 63 Resp 18 18 18 B/P (MAP) 119/62 (81) 93/47 (62) 122/58 (79) Pulse Ox 92 97 95 O2 Delivery Room Air Room Air Room Air Room Air 09/05/18 03:00 Temp 97.7 97.7 Pulse 60 Resp 18 B/P (MAP) 133/50 (77) Pulse Ox 95 O2 Delivery Room Air Nutrition Consultation Dietary Evaluation: Recommendations by RD: Increase Calorie Intake, Protein supplementation Comments: ensure tid rec appetite stimulant Expected Outcomes/Goals: to meet > 75% est nutr needs wt gain/ maintainance Interpretation of weight loss: >5% in 1 month Malnutrition Findings: Food and Nutrition Intake (Sev: <50% est energy req 5days Weight Status: Underweight JEAN GRAY MD Sep 05, 2018 08:46
[2018-09-05 11:00] VITALS: BP 143/75
[2018-09-05] MEDS ORDERED: ONDANSETRON PF 4 MG/2 ML VIAL. IV PRN (11:00)
[2018-09-05] MEDS: ALPRAZolam 0.5 MG TABLET PO SCH ×3 (11:14→20:22)
[2018-09-05] MEDS: CHOLECALCIFEROL (VITAMIN D3) 1,000 UNIT TABLET PO SCH (11:15)
[2018-09-05] MEDS: ATENOLOL 50 MG TABLET. PO SCH (11:15)
[2018-09-05] MEDS: SUCRALFATE 1 GM TABLET. PO SCH ×4 (11:16→20:23)
[2018-09-05] MEDS: predniSONE 10 MG TABLET PO SCH (11:16)
[2018-09-05] MEDS: LOSARTAN POTASSIUM 50 MG TABLET. PO SCH (11:16)
[2018-09-05] MEDS: ASPIRIN ENTERIC COATED 81 MG TABLET.DR. PO SCH (11:16)
[2018-09-05] MEDS: amLODIPine BESYLATE 5 MG TABLET PO SCH (11:17)
--- NOTE | 2018-09-05 13:46 | PDOC2 ---
GI CONSULT Reason For Consult: Nausea HPI: HPI: 73 y/o female who we have seen as an inpatient each month since May re: upper abd pain, nausea, and anorexia. Had one episode of elevated lipase (>3000) w/ quick resolution. CA19-9 was elevated (170), IgG4 was normal. Pancreas normal in appearance on CT. GB was normal on US. HIDA normal w/ GB EF 70%. Abd MRI/MRCP: no pancreatic abnormality, tortuosity and mild kinking of mid CBD. LFTs always normal. Our office referred her to [facility] on 07/23/18 for EUS - she did not pursue this. EGD w/ mild distal esophagitis, gastritis, and erosive duodenitis (path neg for Beltran's and H. pylori). Last colonoscopy <10 years ago, reportedly normal. GES w/ moderately delayed gastric emptying (28% at 4 hours). Has been on PPI, Carafate, pancreatic enzymes, and Reglan - has only continued Carafate. Says she was told to stop Protonix and Reglan and doesn't remember ever taking pancreatic enzymes. Note allergy to e-mycin. BMI was 21.4 when we initially saw her, now documented as 14.6 (?accurate). H/o RA on chronic prednisone, also CAD on ASA. Takes Tylenol for pain at home. Directly admitted this time from Dr. Smith's office w/ weakness. Notes mention confusion, which she denies. I talked to Dr. Smith this morning and he wanted us to see her for nausea. She says she had some nausea this morning that has resolved. She says her appetite has been stable and denies vomiting. For lunch, she had potatoes, peas , chicken, and Ensure. At home, in addition to regular meals, she drinks two Boosts daily. Denies reflux, dysphagia, abd pain, diarrhea, constipation, and bleeding. Thinks weight has been stable. Saw Dr. Vail in the office recently. PMH: PMH: [place], CAD h/o angioplasty, HTN, HLD, COPD, lung cancer s/p KATALINA lobectomy + chemo/ rad, CVA, RA, pancreatitis, gastroparesis, fatty liver, diverticulosis, macular degeneration, depression, anxiety, tonsillectomy, cataract removal, appendectomy , hysterectomy, RSO, lung biopsy FH: Family History: Other (mother - cholecystectomy) Social History: Smoke: Quit ALCOHOL: none Drugs: None ROS: GEN: Denies fevers, chills, sweats HEENT: Denies blurred vision, sore throat CV: Denies chest pain RESP: Denies shortness of air, cough GI: Per HPI : Denies hematuria, dysuria ENDO: Denies weight changes NEURO: "shakiness" MSK: Denies weakness, joint pain/swelling SKIN: Denies jaundice, pruritus Vitals: Vitals: Vital Signs Date Time Temp Pulse Resp B/P (MAP) Pulse Ox O2 Delivery O2 Flow Rate FiO2 09/05/18 11:17 63 135/67 09/05/18 11:00 97.6 16 93 Room Air 97.6 Labs: Labs: Please see EMR. Allergies: Coded Allergies: azithromycin (Verified Allergy, Severe, Anaphylaxis, 07/03/18) erythromycin base (Verified Allergy, Severe, Anaphylaxis, 07/03/18) iodine (Verified Allergy, Severe, SWELLING, SOA, THROAT CLOSES UP, 07/03/18 ) oxytetracycline (Verified Allergy, Severe, Anaphylaxis, 07/03/18) tetracycline (Verified Allergy, Severe, Anaphylaxis, 07/03/18) codeine (Verified Allergy, Intermediate, 07/03/18) egg (Verified Allergy, Intermediate, hives, "eggs in vaccines", 07/03/18) morphine (Verified Allergy, Intermediate, 07/03/18) hallucinations Medications: Current Medications Medications (Trade) Dose Ordered Sig/Cammy Route PRN Reason Start Time Stop Time Status Last Admin Dose Admin Acetaminophen (Tylenol) 325 mg 1X ONCE PO 09/05/18 02:45 09/05/18 02:46 DC 09/05/18 02:43 Ondansetron HCl (Zofran) 4 mg PRN Q6HRS PRN IV NAUSEA/VOMITING 09/05/18 11:00 09/05/18 11:14 Imaging: Imaging: Chest CT IMPRESSION: 1. Emphysema with bilateral pleural/parenchymal scarring. 2. Stable postsurgical findings in the left chest with consolidation in the posterior aspect of left upper chest may represent post therapeutic scarring. 3. Small right middle lobe and right lower lobe opacities have increased in size , raising the possibility of a neoplastic etiology. 4. Additional chronic findings as described above. Head CT Impression: 1. No acute intracranial process. Please note that CT can be relatively insensitive to acute ischemic infarction for up to 24 hours after symptom onset. 2. 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 3. Nonspecific white matter changes, probably from chronic microvascular ischemic disease. Brain MRI Impression: No acute parenchymal abnormality is seen. There is no MRI evidence of metastatic disease involving the brain parenchyma. EEG IMPRESSION: This EEG is a normal study for the awake, drowsy, and brief sleep states. No focal, lateralizing, specific epileptiform discharge or electrographic seizure is seen. PE: GEN: NAD HEENT: Atraumatic, PERRL LUNGS: CTAB HEART: RRR ABD: NABS, S/ND/NT EXTREMITY: No edema SKIN: No rashes, no jaundice NEURO/PSYCH: A & O 3, flat A/P: A/P: AMS, weakness H/o lung cancer -CT chest as above w/ small right and middle lobe opacities increasing in size H/o RA on chronic prednisone Chronic/recurrent nausea and anorexia --extensive GI workup as above significant for: -moderately delayed gastric emptying ---> did well on Reglan, no longer taking -esophagitis, gastritis, erosive duodenitis ---> has continued Carafate but not PPI -single episode of elevated lipase w/ elevated CA19-9 ---> tried pancreatic enzymes at one point, no longer taking; referred for EUS, she has not pursued CRC screen - colonoscopy reportedly normal <10 years ago -- Frequent admissions, substantial GI workup. Nausea apparently resolved - likely multi-factorial. Reviewed w/ Dr. Vail - CTA to r/o mesenteric ischemia. ?follow-up w/ pulm and oncology VICENTE BALL Sep 05, 2018 13:46
[2018-09-05] MEDS: CITALOPRAM 20 MG TABLET. PO SCH (14:22)
[2018-09-05 15:00] VITALS: BP 91/47
--- NOTE | 2018-09-05 15:21 | PDOC ---
PROGRESS NOTES Assessment Assessment Metabolic encephalopathy. Tremors. ET. Lung cancer. Erosive esophagitis, gastritis, duodenitis. COPD. CAD. TN. HLD. Chronic T3, T4, T5, T8, and T9 compression fractures. 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 Old right cerebellar lacunar infarct. No evidence of acute CVA and metastatic brain disease this time. RECOMMENDATIONS/PLAN: Continue ASA daily. Continue Zocor HS. Continue Xanax. Treat medical diseases. FU with PCP. FU with Oncology. EEG on 09/04/18: Normal study. HISTORY OF THE PRESENT ILLNESS: This is a 73-year-old female with history of long-standing COPD, lung cancer, coronary artery disease and other medical diseases. She recently had admissions for episodes of pancreatitis. She has tremor like movements in the past 2 weeks. She was noted confused and her daughter brought her to cardiac clinic then was admitted into hospital for further evaluation. Past Medical History Cardiovascular: TN Pulmonary: COPD Musculoskeletal: Osteoarthritis Rheumatologic: Rheumatoid arthritis ENT: Other (Glaucoma, macular degeneration) Past Surgical History Hysterectomy Family History Cancer, Coronary Artery Disease, Other (pulmonary fibrosis) Allergies Coded Allergies: azithromycin (Verified Allergy, Severe, Anaphylaxis, 09/25/14) erythromycin base (Verified Allergy, Severe, Anaphylaxis, 09/25/14) iodine (Verified Allergy, Severe, SWELLING, SOA, 09/22/14) THROAT CLOSES UP oxytetracycline (Verified Allergy, Severe, Anaphylaxis, 09/25/14) tetracycline (Verified Allergy, Severe, Anaphylaxis, 09/25/14) egg (Verified Allergy, Intermediate, hives, 09/25/14) "eggs in vaccines" codeine (Verified Allergy, Mild, 09/17/14) MEDICATIONS: Refer to MAR SOCIAL HISTORY: Lives at home. Denies current smoking, drinking, and illicit drug use. She smoked cigarettes before, but quit several months ago. REVIEW OF SYSTEMS: Constitutional: Mild malnutrition.. Head: No traumatic brain or head injury. Skin: No edema, or rash. Ear: No infection. Eyes: No vision loss or color blindness. Nose: No bleeding or purulent discharges. Hearing: Mild hearing decrease. Neck: No injury. Breast: No history of cancer, masses,or discharges. Cardiac: CAD. Pulmonary: COPD, lung cancer. GI: No GI ulcer, GI bleeding. Urinary/genital: UTI. Endocrinologic: No cousin face, craniofacial dysmorphism, polydactyly. Skeletomuscular: Generalized weakness. Neurological: see HP. Psychiatric: Denies drug use/abuse. Otherwise, not [id number] review of systems. PHYSICAL EXAMINATION: General appearance is in subacute distress. HEENT: Normocephalic and nontraumatic. Eyes, nose, ears, and throat are unremarkable. Neck is supple. No lymphadenopathy. No bruits are heard over the carotid artery. No crepitus. Cardiovascular: S1, S2, regular rate and rhythm. Pulmonary: Clear to auscultation bilaterally. Abdomen: Bowel sounds are positive. Abdomen is soft, nontender, and nondistended. Extremities: No rash, lesions, or edema. No restriction of range of motion NEUROLOGICAL EXAMINATION: Awake. Oriented to time, place and person, but reactions were slow. PERRL. EOMI. CN: no focal findings. Muscle tone: within normal. Muscle strength: 5- DTR: 2 Plantar reflex: Flexor response bilaterally Gait: not examined in bed. Sensory exam: no abnormal findings. No acute cerebellar signs elicited. F-T-N test fine. Objective Objective Vital Signs Date Time Temp Pulse Resp B/P (MAP) Pulse Ox O2 Delivery O2 Flow Rate FiO2 09/05/18 11:17 63 135/67 09/05/18 11:00 97.6 16 93 Room Air 97.6 Vitals Signs Vitals VS - Last 72 Hours, by Label Date Time Temp Pulse Resp B/P (MAP) Pulse Ox O2 Delivery O2 Flow Rate FiO2 09/05/18 11:17 63 135/67 09/05/18 11:16 63 135/67 09/05/18 11:15 63 135/67 09/05/18 11:00 97.6 68 16 143/75 (97) 93 Room Air 97.6 09/05/18 08:00 Room Air 09/05/18 07:00 97.7 63 16 135/67 (89) 94 Room Air 97.7 09/05/18 03:00 97.7 60 18 133/50 (77) 95 Room Air 97.7 09/04/18 23:00 97.9 63 18 122/58 (79) 95 Room Air 97.9 09/04/18 20:00 Room Air 09/04/18 19:00 97.6 71 18 93/47 (62) 97 Room Air 97.6 09/04/18 15:00 97.6 64 18 119/62 (81) 92 Room Air 97.6 09/04/18 11:00 97.9 61 18 134/72 (92) 90 Room Air 97.9 09/04/18 08:47 65 136/79 09/04/18 08:47 65 136/79 09/04/18 08:46 65 136/79 09/04/18 08:00 Room Air 09/04/18 07:00 97.9 65 18 136/79 (98) 92 97.9 Medication Medications Current Medications Acetaminophen (Tylenol) 325 mg 1X ONCE PO Last administered on 09/05/18at 02: 43; Start 09/05/18 at 02:45; Stop 09/05/18 at 02:46; Status DC Ondansetron HCl (Zofran) 4 mg PRN Q6HRS PRN IV NAUSEA/VOMITING Last administered on 09/05/18at 11:14; Start 09/05/18 at 11:00 Comment Review of Relevant I have reviewed the following items natalia (where applicable) has been applied. DYANA PRAKASH MD Sep 05, 2018 15:21
[2018-09-05 19:00] VITALS: BP 88/44
[2018-09-05] MEDS: LATANOPROST 0.005% OPHTH SOLUTION 2.5ML BOTTLE. OU SCH (20:22)
[2018-09-05] MEDS: SIMVASTATIN 40 MG TABLET. PO SCH (20:23)
[2018-09-05 23:00] VITALS: BP 105/65
[2018-09-06] VITALS (7 sets, daily range): BP systolic 93–151; BP diastolic 52–78
[2018-09-06] MEDS: ALPRAZolam 0.25 MG TABLET PO PRN ×3 (06:20→18:48)
[2018-09-06] MEDS: BRIMONIDINE 0.2% OPHTH SOLUTION 5ML BOTTLE. OU SCH (08:38)
[2018-09-06] MEDS: SUCRALFATE 1 GM TABLET. PO SCH ×4 (08:38→21:30)
[2018-09-06] MEDS: TIMOLOL 0.25% OPHTH SOLUTION 5ML BOTTLE. OU SCH (08:38)
[2018-09-06] MEDS: predniSONE 10 MG TABLET PO SCH (10:03)
[2018-09-06] MEDS: amLODIPine BESYLATE 5 MG TABLET PO SCH (10:04)
[2018-09-06] MEDS: LOSARTAN POTASSIUM 50 MG TABLET. PO SCH (10:04)
[2018-09-06] MEDS: ATENOLOL 50 MG TABLET. PO SCH (10:04)
[2018-09-06] MEDS: ASPIRIN ENTERIC COATED 81 MG TABLET.DR. PO SCH (10:05)
[2018-09-06] MEDS: CHOLECALCIFEROL (VITAMIN D3) 1,000 UNIT TABLET PO SCH (10:05)
[2018-09-06] MEDS: ALPRAZolam 0.5 MG TABLET PO SCH ×3 (10:05→21:30)
[2018-09-06] MEDS: CITALOPRAM 20 MG TABLET. PO SCH (11:38)
--- NOTE | 2018-09-06 12:12 | PDOC ---
Subjective: Subjective: Feels fine - no n/v, no abd pain. Makes it clear she has no GI complaints and does not desire further workup. "That nausea was a one time thing!" Objective: Objective: Reviewed w/ RN - has iodine allergy and refuses pre-medication, declines CTA. No GI concerns. Vital Signs: Vital Signs Date Time Temp Pulse Resp B/P (MAP) Pulse Ox O2 Delivery O2 Flow Rate FiO2 09/06/18 10:04 79 151/78 09/06/18 08:00 Room Air 09/06/18 07:00 97.8 16 91 97.8 PE: GEN: NAD, sitting on edge of bed eating lunch LUNGS: room air HEART: RRR ABD: S/ND/NT NEURO/PSYCH: A & O 3 A/P: Nausea - resolved -- Does have issues w/ chronic nausea likely related to gastroparesis and GERD. She declines CTA and further GI workup. Other per Dr. Vail. VICENTE BALL Sep 06, 2018 12:12
[2018-09-06] MEDS: IV 1/2 NORMAL SALINE 1,000 ML IV SCH (12:56)
--- NOTE | 2018-09-06 15:39 | PDOC ---
PROGRESS NOTES Assessment Assessment Metabolic encephalopathy. Tremors. ET. Lung cancer. Erosive esophagitis, gastritis, duodenitis. COPD. CAD. [place]. HLD. Chronic T3, T4, T5, T8, and T9 compression fractures. 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 Old right cerebellar lacunar infarct. No evidence of acute CVA and metastatic brain disease this time. RECOMMENDATIONS/PLAN: Continue ASA daily. Continue Zocor HS. Continue Xanax. Treat medical diseases. FU with PCP. FU with Oncology. EEG on 09/04/18: Normal study. HISTORY OF THE PRESENT ILLNESS: This is a 73-year-old female with history of long-standing COPD, lung cancer, coronary artery disease and other medical diseases. She recently had admissions for episodes of pancreatitis. She has tremor like movements in the past 2 weeks. She was noted confused and her daughter brought her to cardiac clinic then was admitted into hospital for further evaluation. Past Medical History Cardiovascular: MS Pulmonary: COPD Musculoskeletal: Osteoarthritis Rheumatologic: Rheumatoid arthritis ENT: Other (Glaucoma, macular degeneration) Past Surgical History Hysterectomy Family History Cancer, Coronary Artery Disease, Other (pulmonary fibrosis) Allergies Coded Allergies: azithromycin (Verified Allergy, Severe, Anaphylaxis, 09/25/14) erythromycin base (Verified Allergy, Severe, Anaphylaxis, 09/25/14) iodine (Verified Allergy, Severe, SWELLING, SOA, 09/22/14) THROAT CLOSES UP oxytetracycline (Verified Allergy, Severe, Anaphylaxis, 09/25/14) tetracycline (Verified Allergy, Severe, Anaphylaxis, 09/25/14) egg (Verified Allergy, Intermediate, hives, 09/25/14) "eggs in vaccines" codeine (Verified Allergy, Mild, 09/17/14) MEDICATIONS: Refer to MAR SOCIAL HISTORY: Lives at home. Denies current smoking, drinking, and illicit drug use. She smoked cigarettes before, but quit several months ago. REVIEW OF SYSTEMS: Constitutional: Mild malnutrition.. Head: No traumatic brain or head injury. Skin: No edema, or rash. Ear: No infection. Eyes: No vision loss or color blindness. Nose: No bleeding or purulent discharges. Hearing: Mild hearing decrease. Neck: No injury. Breast: No history of cancer, masses,or discharges. Cardiac: CAD. Pulmonary: COPD, lung cancer. GI: No GI ulcer, GI bleeding. Urinary/genital: UTI. Endocrinologic: No cousin face, craniofacial dysmorphism, polydactyly. Skeletomuscular: Generalized weakness. Neurological: see HP. Psychiatric: Denies drug use/abuse. Otherwise, not [id number] review of systems. PHYSICAL EXAMINATION: General appearance is in subacute distress. HEENT: Normocephalic and nontraumatic. Eyes, nose, ears, and throat are unremarkable. Neck is supple. No lymphadenopathy. No bruits are heard over the carotid artery. No crepitus. Cardiovascular: S1, S2, regular rate and rhythm. Pulmonary: Clear to auscultation bilaterally. Abdomen: Bowel sounds are positive. Abdomen is soft, nontender, and nondistended. Extremities: No rash, lesions, or edema. No restriction of range of motion NEUROLOGICAL EXAMINATION: Awake. Oriented to time, place and person, but reactions are slow. PERRL. EOMI. CN: no focal findings. Muscle tone: within normal. Muscle strength: 5- DTR: 2 Plantar reflex: Flexor response bilaterally Gait: not examined in bed. Sensory exam: no abnormal findings. No acute cerebellar signs elicited. F-T-N test fine. Objective Objective Vital Signs Date Time Temp Pulse Resp B/P (MAP) Pulse Ox O2 Delivery O2 Flow Rate FiO2 09/06/18 11:00 97.5 67 16 117/52 (73) 92 Room Air 97.5 Intake and Output 09/06/18 07:00 Intake Total 620 ml Balance 620 ml Intake Oral 620 ml # Voids 3 Vitals Signs Vitals VS - Last 72 Hours, by Label Date Time Temp Pulse Resp B/P (MAP) Pulse Ox O2 Delivery O2 Flow Rate FiO2 09/06/18 11:00 97.5 67 16 117/52 (73) 92 Room Air 97.5 09/06/18 10:04 79 151/78 09/06/18 10:04 79 151/78 09/06/18 10:04 79 151/78 09/06/18 08:00 Room Air 09/06/18 07:00 97.8 79 16 151/78 (102) 91 Room Air 97.8 09/06/18 03:00 97.9 72 18 113/63 (80) 93 97.9 09/05/18 23:00 97.9 80 18 105/65 (78) 91 97.9 09/05/18 20:00 Room Air 09/05/18 19:00 97.6 75 18 88/44 (59) 92 Room Air 97.6 09/05/18 15:00 97.4 67 16 91/47 (62) 93 Room Air 97.4 09/05/18 11:17 63 135/67 18 11:16 63 135/67 09/05/18 11:15 63 135/67 09/05/18 11:00 97.6 68 16 143/75 (97) 93 Room Air 97.6 09/05/18 08:00 Room Air 09/05/18 07:00 97.7 63 16 135/67 (89) 94 Room Air 97.7 Medication Medications Current Medications Non-Formulary Medication 2 ea DAILYWLUN PO ; Start 09/06/18 at 15:45; Status UNV Sucralfate (Carafate) 1 gm QIDACHS PO Last administered on 09/06/18at 11:36; Start 09/06/18 at 11:30 Comment Review of Relevant I have reviewed the following items natalia (where applicable) has been applied. DYANA PRAKASH MD Sep 06, 2018 15:39
[2018-09-06] MEDS ORDERED: ESCITALOPRAM 10 MG PO SCH (15:45)
--- NOTE | 2018-09-06 15:47 | PDOC ---
PROGRESS NOTES Subjective Subjective Ms Akhil says that her nausea has resovled today, and that it only a one time thing, and does not wan further workup she said that she has a iodine allergy and does not want the prophyalxis to undergo CTA of the abdomen she denies any chest pain or shortness of breath in the evening or this morning she admits to an increase in anxiety since being in the hospital with an unknown trigger. She said it is a generalized feeling and not in regards to a specific situation. Objective Objective Vital Signs Date Time Temp Pulse Resp B/P (MAP) Pulse Ox O2 Delivery O2 Flow Rate FiO2 09/06/18 11:00 97.5 67 16 117/52 (73) 92 Room Air 97.5 Intake and Output 09/06/18 07:00 Intake Total 620 ml Balance 620 ml Intake Oral 620 ml # Voids 3 Physical Exam Heart: Regular rate, Normal S1, Normal S2, No murmurs Extremities: No clubbing, No cyanosis, No edema, Normal pulses General: Alert, Oriented X3, Cooperative, No acute distress Lungs: Clear to auscultation, Normal air movement Plan Plan of Care will continue to follow patient for cardiac concerns would like to get opinion from pulmonology/oncology for increase size of right lung nodule patient should resume her home Lexapro 20mg qd beginning today for her increased anxiety Comment Review of Relevant I have reviewed the following items natalia (where applicable) has been applied. Medications Current Medications Sodium Chloride 1,000 ml @ 60 mls/hr [id number] IV Last administered on at 12:56; Start 09/03/18 at 15:00 Alprazolam (Xanax) 0.5 mg TID PO Last administered on 09/06/18at 14:14; Start 09/03/18 at 16:30 Aspirin (Ecotrin) 81 mg DAILY PO Last administered on 09/06/18 10:05; Start 09/03/18 at 16:30 Atenolol (Tenormin) 50 mg DAILY PO Last administered on 09/06/18 10:04; Start 09/03/18 at 16:30 Vitamin D (Vitamin D3) 2,000 unit DAILY PO Last administered on 09/06/18 10: 05; Start 09/03/18 at 16:30 Prednisone (Prednisone) 10 mg DAILY PO Last administered on 09/06/18 10:03; Start 09/03/18 at 16:30 Non-Formulary Medication (Brimonidine Tartrate/Timolol (Combigan Eye Drops)) 5 ml DAILY OP ; Start 09/04/18 at 09:00; Status UNV Citalopram Hydrobromide (CeleXA) 20 mg DAILYWLUN PO Last administered on 11:38; Start 09/03/18 at 16:30; Stop 09/06/18 at 15:37; Status DC Latanoprost (Xalatan) 1 drop QHS OU Last administered on 09/05/18 20:22; Start 09/03/18 at 21:00 Sucralfate (Carafate) 1 gm QID PO Last administered on 09/06/18 08:38; Start 09/03/18 at 17:00; Stop 09/06/18 at 11:04; Status DC Amlodipine Besylate (Norvasc) 5 mg DAILY PO Last administered on 09/06/18 10: 04; Start 09/03/18 at 16:30 Simvastatin (Zocor) 40 mg QHS PO Last administered on 09/05/18 20:23; Start 09/03/18 at 21:00 Losartan Potassium (Cozaar) 100 mg DAILY PO Last administered on 09/06/18 10: 04; Start 09/03/18 at 16:30 Brimonidine Tartrate (Alphagan) 1 drop DAILY OU Last administered on 08:38; Start 09/04/18 at 09:00 Timolol Maleate (Timoptic 0.25% [facility]) 1 drop DAILY OU Last administered on 08:38; Start 09/04/18 at 09:00 Alprazolam (Xanax) 0.25 mg PRN Q6HRS PRN PO ANXIETY / AGITATION Last administered on 09/06/18 12:30; Start 09/03/18 at 17:15 Acetaminophen (Tylenol) 325 mg PRN Q6HRS PRN PO MILD PAIN / TEMP Last administered on 09/05/18 02:14; Start 09/03/18 at 17:15 Gadobutrol (Gadavist) 4 mmol 1X ONCE IV Last administered on 10/23/18at 09:43 ; Start 09/04/18 at 09:30; Stop 09/04/18 at 09:31; Status DC Acetaminophen (Tylenol) 325 mg 1X ONCE PO Last administered on 09/05/18at 02: 43; Start 09/05/18 at 02:45; Stop 09/05/18 at 02:46; Status DC Ondansetron HCl (Zofran) 4 mg PRN Q6HRS PRN IV NAUSEA/VOMITING Last administered on 09/05/18at 11:14; Start 09/05/18 at 11:00 Sucralfate (Carafate) 1 gm QIDACHS PO Last administered on 09/06/18at 11:36; Start 09/06/18 at 11:30 Non-Formulary Medication 2 ea DAILYWLUN PO ; Start 09/06/18 at 15:45 Active Scripts Active Reglan (Metoclopramide Hcl) 10 Mg Tablet 1 Tab PO TID PRN Zofran (Ondansetron Hcl) 4 Mg Tablet 4 Mg PO PRN TID PRN nausea/vomiting [place] 5-325 Tablet (Acetaminophen/Hydrocodone Bitart) 1 Each Tablet 1 Tab PO PRN Q6HRS PRN Reported Cozaar (Losartan Potassium) 100 Mg Tablet 100 Mg PO DAILY Zocor (Simvastatin) 40 Mg Tablet 1 Tab PO DAILY Sucralfate 1 Gm Tablet 1 Tab PO QID Alprazolam 0.5 Mg Tablet 1 Tab PO TID Atenolol 50 Mg Tablet 1 Tab PO DAILY Protonix (Pantoprazole Sodium) 20 Mg Tablet.dr 2 Tab PO QHS Carafate (Sucralfate) 1 Gm Tablet 1 Tab PO TIDAC Lexapro (Escitalopram Oxalate) 10 Mg Tablet 1 Tab PO DAILYWLUN Latanoprost 2.5 Ml Drops 1 Drop EACHEYE QHS Combigan Eye Drops (Brimonidine Tartrate/Timolol) 5 Ml Drops 5 Ml OP DAILY Prednisone 20 Mg Tablet 10 Mg PO DAILY Amlodipine Besylate 5 Mg Tablet 5 Mg PO DAILY Vitamin D3 (Cholecalciferol (Vitamin D3)) 1,000 Unit Tablet 2,000 Unit PO DAILY Alprazolam 0.5 Mg Tablet 1 Tab PO QIDPRN PRN Aspir 81 (Aspirin) 81 Mg Tablet.dr 1 Tab PO DAILY Vitals/I & O Vital Sign - Last 24 Hours 09/05/18 09/05/18 09/05/18 09/06/18 19:00 20:00 23:00 03:00 Temp 97.6 97.9 97.9 97.6 97.9 97.9 Pulse 75 80 72 Resp 18 18 18 B/P (MAP) 88/44 (59) 105/65 (78) 113/63 (80) Pulse Ox 92 91 93 O2 Delivery Room Air Room Air 09/06/18 09/06/18 09/06/18 09/06/18 07:00 08:00 10:04 10:04 Temp 97.8 97.8 Pulse 79 79 79 Resp 16 B/P (MAP) 151/78 (102) 151/78 151/78 Pulse Ox 91 O2 Delivery Room Air Room Air 09/06/18 09/06/18 10:04 11:00 Temp 97.5 97.5 Pulse 79 67 Resp 16 B/P (MAP) 151/78 117/52 (73) Pulse Ox 92 O2 Delivery Room Air Intake and Output 09/05/18 09/05/18 09/06/18 15:00 23:00 07:00 Intake Total 500 ml 120 ml Balance 500 ml 120 ml Nutrition Consultation Dietary Evaluation: Recommendations by RD: Increase Calorie Intake, Protein supplementation Comments: ensure tid rec appetite stimulant Expected Outcomes/Goals: to meet > 75% est nutr needs wt gain/ maintainance Interpretation of weight loss: >5% in 1 month Malnutrition Findings: Food and Nutrition Intake (Sev: <50% est energy req 5days Weight Status: Underweight JEAN GRAY MD Sep 06, 2018 15:47
--- NOTE | 2018-09-06 16:56 | PDOC ---
PULMONARY PROGRESS NOTES Vitals Vital Signs Date Time Temp Pulse Resp B/P (MAP) Pulse Ox O2 Delivery O2 Flow Rate FiO2 09/06/18 16:30 76 133/64 (87) 09/06/18 15:00 98.5 24 93 Room Air 98.5 Lungs: Clear Cardiovascular: S1 Abdomen: Soft Extremities: No Edema Medications Active Scripts Medications Dose Route/Sig Max Daily Dose Days Date Category Dose Instructions Cozaar (Losartan Potassium) 100 Mg Tablet 100 Mg PO DAILY 09/03/18 Reported Zocor (Simvastatin) 40 Mg Tablet 1 Tab PO DAILY 09/03/18 Reported Sucralfate 1 Gm Tablet 1 Tab PO QID 09/03/18 Reported Alprazolam 0.5 Mg Tablet 1 Tab PO TID 09/03/18 Reported Atenolol 50 Mg Tablet 1 Tab PO DAILY 09/03/18 Reported Protonix (Pantoprazole Sodium) 20 Mg Tablet.dr 2 Tab PO QHS 07/22/18 Reported Carafate (Sucralfate) 1 Gm Tablet 1 Tab PO TIDAC 07/22/18 Reported Reglan (Metoclopramide Hcl) 10 Mg Tablet 1 Tab PO TID PRN 07/18/18 Rx Zofran (Ondansetron Hcl) 4 Mg Tablet 4 Mg PO PRN TID PRN 07/18/18 Rx nausea/vomiting Lexapro (Escitalopram Oxalate) 10 Mg Tablet 1 Tab PO DAILYWLUN 07/02/18 Reported [place] 5-325 Tablet (Acetaminophen/Hydrocodone Bitart) 1 Each Tablet 1 Tab PO PRN Q6HRS PRN 07/02/18 Rx Latanoprost 2.5 Ml Drops 1 Drop EACHEYE QHS 06/06/18 Reported Combigan Eye Drops (Brimonidine Tartrate/Timolol) 5 Ml Drops 5 Ml OP DAILY 06/06/18 Reported Prednisone 20 Mg Tablet 10 Mg PO DAILY 04/16/18 Reported Amlodipine Besylate 5 Mg Tablet 5 Mg PO DAILY 03/07/16 Reported Vitamin D3 (Cholecalciferol (Vitamin D3)) 1,000 Unit Tablet 2,000 Unit PO DAILY 03/07/16 Reported Alprazolam 0.5 Mg Tablet 1 Tab PO QIDPRN PRN 09/17/14 Reported Aspir 81 (Aspirin) 81 Mg Tablet.dr 1 Tab PO DAILY 09/17/14 Reported Impression . FULL NOTE TO BE DICTATED WILL D/W DR GRAY WENT OVER THE OPTIONS PT NOT WANTING BIOPSY AT THIS TIME I CONCUR WITH WAITING PARAMJIT WELCH MD Sep 06, 2018 16:56
[2018-09-06] MEDS: SIMVASTATIN 40 MG TABLET. PO SCH (21:30)
[2018-09-06] MEDS: LATANOPROST 0.005% OPHTH SOLUTION 2.5ML BOTTLE. OU SCH (21:31)
[2018-09-07] MEDS: IV 1/2 NORMAL SALINE 1,000 ML IV SCH ×2 (02:20→09:02)
[2018-09-07 03:00] VITALS: BP 131/57
[2018-09-07] MEDS: ALPRAZolam 0.25 MG TABLET PO PRN (04:17)
[2018-09-07 07:00] VITALS: BP 133/70
[2018-09-07] MEDS: predniSONE 10 MG TABLET PO SCH (08:57)
[2018-09-07] MEDS: ASPIRIN ENTERIC COATED 81 MG TABLET.DR. PO SCH (08:57)
[2018-09-07] MEDS: LOSARTAN POTASSIUM 50 MG TABLET. PO SCH (08:57)
[2018-09-07] MEDS: ALPRAZolam 0.5 MG TABLET PO SCH ×3 (08:57→22:01)
[2018-09-07] MEDS: SUCRALFATE 1 GM TABLET. PO SCH ×4 (08:57→21:00)
[2018-09-07] MEDS: ATENOLOL 50 MG TABLET. PO SCH (08:58)
[2018-09-07] MEDS: CHOLECALCIFEROL (VITAMIN D3) 1,000 UNIT TABLET PO SCH (08:58)
[2018-09-07] MEDS: amLODIPine BESYLATE 5 MG TABLET PO SCH (08:58)
[2018-09-07] MEDS: [UNRECOGNIZED DRUG - REMARK] PO SCH (08:59)
[2018-09-07] MEDS: BRIMONIDINE 0.2% OPHTH SOLUTION 5ML BOTTLE. OU SCH (09:02)
[2018-09-07] MEDS: TIMOLOL 0.25% OPHTH SOLUTION 5ML BOTTLE. OU SCH (09:03)
--- NOTE | 2018-09-07 10:12 | PDOC ---
Subjective: Subjective: Denies GI concerns - denies nausea. Objective: Vital Signs: Vital Signs Date Time Temp Pulse Resp B/P (MAP) Pulse Ox O2 Delivery O2 Flow Rate FiO2 09/07/18 08:58 70 133/70 09/07/18 08:00 Room Air 09/07/18 07:00 97.7 20 92 97.7 PE: GEN: NAD LUNGS: CTAB HEART: RRR ABD: NABS, S/ND/NT NEURO/PSYCH: A & O 3 A/P: Nausea - resolved -- Asymptomatic. Have offered CTA and EUS - she declines further GI workup. D/w Dr. Smith yesterday. VICENTE BALL Sep 07, 2018 10:12
[2018-09-07 11:00] VITALS: BP 129/61
[2018-09-07] MEDS ORDERED: POLYETHYLENE GLYCOL 3350 17 GM PACKET. PO PRN (11:30)
[2018-09-07] MEDS ORDERED: SENNOSIDES/DOCUSATE 8.6/50MG TABLET. PO PRN (11:30)
--- NOTE | 2018-09-07 12:33 | PDOC ---
PULMONARY PROGRESS NOTES Subjective PT NOT MORE SOA Vitals Vital Signs Date Time Temp Pulse Resp B/P (MAP) Pulse Ox O2 Delivery O2 Flow Rate FiO2 09/07/18 11:00 97.6 58 20 129/61 (83) 93 Room Air 97.6 ROS: No Nausea, No Chest Pain, No Abdominal Pain, No Increase Cough Lungs: Clear Cardiovascular: S1 Abdomen: Soft Neuro Exam: Alert Extremities: No Edema Skin: Warm Medications Active Scripts Medications Dose Route/Sig Max Daily Dose Days Date Category Dose Instructions Cozaar (Losartan Potassium) 100 Mg Tablet 100 Mg PO DAILY 09/03/18 Reported Zocor (Simvastatin) 40 Mg Tablet 1 Tab PO DAILY 09/03/18 Reported Sucralfate 1 Gm Tablet 1 Tab PO QID 09/03/18 Reported Alprazolam 0.5 Mg Tablet 1 Tab PO TID 09/03/18 Reported Atenolol 50 Mg Tablet 1 Tab PO DAILY 09/03/18 Reported Protonix (Pantoprazole Sodium) 20 Mg Tablet.dr 2 Tab PO QHS 07/22/18 Reported Carafate (Sucralfate) 1 Gm Tablet 1 Tab PO TIDAC 07/22/18 Reported Reglan (Metoclopramide Hcl) 10 Mg Tablet 1 Tab PO TID PRN 07/18/18 Rx Zofran (Ondansetron Hcl) 4 Mg Tablet 4 Mg PO PRN TID PRN 07/18/18 Rx nausea/vomiting Lexapro (Escitalopram Oxalate) 10 Mg Tablet 1 Tab PO DAILYWLUN 07/02/18 Reported [place] 5-325 Tablet (Acetaminophen/Hydrocodone Bitart) 1 Each Tablet 1 Tab PO PRN Q6HRS PRN 07/02/18 Rx Latanoprost 2.5 Ml Drops 1 Drop EACHEYE QHS 06/06/18 Reported Combigan Eye Drops (Brimonidine Tartrate/Timolol) 5 Ml Drops 5 Ml OP DAILY 06/06/18 Reported Prednisone 20 Mg Tablet 10 Mg PO DAILY 04/16/18 Reported Amlodipine Besylate 5 Mg Tablet 5 Mg PO DAILY 03/07/16 Reported Vitamin D3 (Cholecalciferol (Vitamin D3)) 1,000 Unit Tablet 2,000 Unit PO DAILY 03/07/16 Reported Alprazolam 0.5 Mg Tablet 1 Tab PO QIDPRN PRN 09/17/14 Reported Aspir 81 (Aspirin) 81 Mg Tablet.dr [place] Tab PO DAILY 09/17/14 Reported Impression . PULMONARY NODULE RIGHT COPD ANCIETY S/P LOBECTOMY ON LEFT FOR LUNG CA Plan . SPOKE WITH DAUGHTER THIS AM AND DR GRAY WENT OVER THE OPTIONS PT NOT WANTING BIOPSY AT THIS TIME I CONCUR WITH WAITING OK TO D/C FOLLOW UP IN OFFICE IN [address] IN 2-3 MONTHS THANKS PARAMJIT WELCH MD Sep 07, 2018 12:33
[2018-09-07 15:00] VITALS: BP 137/65
[2018-09-07] MEDS ORDERED: MAGNESIUM HYDROXIDE 2,400 MG/30 ML ORAL.SUSP. PO PRN (15:15)
--- NOTE | 2018-09-07 15:38 | PDOC ---
PROGRESS NOTES Subjective Subjective Pt complains of significant constipation today, along with continued anxiety. Objective Objective Vital Signs Date Time Temp Pulse Resp B/P (MAP) Pulse Ox O2 Delivery O2 Flow Rate FiO2 09/07/18 11:00 97.6 58 20 129/61 (83) 93 Room Air 97.6 Intake and Output 09/07/18 07:00 Intake Total 1080 ml Balance 1080 ml Intake Oral 1080 ml # Voids 8 # Bowel Movements 1 Physical Exam Physical Exam No significant cardiac changes. Plan Plan of Care Per pulm - not going to biopsy lung lesion at this time. They would like her to follow up as an outpatient in 2 months & repeat CT chest in 2-3 months. Tentatively planning to discharge tomorrow am. Comment Review of Relevant I have reviewed the following items natalia (where applicable) has been applied. Medications Current Medications Sodium Chloride 1,000 ml @ 60 mls/hr [id number] IV Last administered on at 09:02; Start 09/03/18 at 15:00 Alprazolam (Xanax) 0.5 mg TID PO Last administered on 09/07/18at 08:57; Start 09/03/18 at 16:30 Aspirin (Ecotrin) 81 mg DAILY PO Last administered on 09/07/18at 08:57; Start 09/03/18 at 16:30 Atenolol (Tenormin) 50 mg DAILY PO Last administered on 09/07/18at 08:58; Start 09/03/18 at 16:30 Vitamin D (Vitamin D3) 2,000 unit DAILY PO Last administered on 09/07/18at 08: 58; Start 09/03/18 at 16:30 Prednisone (Prednisone) 10 mg DAILY PO Last administered on 09/07/18at 08:57; Start 09/03/18 at 16:30 Non-Formulary Medication (Brimonidine Tartrate/Timolol (Combigan Eye Drops)) 5 ml DAILY OP ; Start 09/04/18 at 09:00; Status UNV Citalopram Hydrobromide (CeleXA) 20 mg DAILYWLUN PO Last administered on at 11:38; Start 09/03/18 at 16:30; Stop 09/06/18 at 15:37; Status DC Latanoprost (Xalatan) 1 drop QHS OU Last administered on 09/06/18 21:31; Start 09/03/18 at 21:00 Sucralfate (Carafate) 1 gm QID PO Last administered on 09/06/18 08:38; Start 09/03/18 at 17:00; Stop 09/06/18 at 11:04; Status DC Amlodipine Besylate (Norvasc) 5 mg DAILY PO Last administered on 09/07/18 08: 58; Start 09/03/18 at 16:30 Simvastatin (Zocor) 40 mg QHS PO Last administered on 09/06/18 21:30; Start 09/03/18 at 21:00 Losartan Potassium (Cozaar) 100 mg DAILY PO Last administered on 09/07/18 08: 57; Start 09/03/18 at 16:30 Brimonidine Tartrate (Alphagan) 1 drop DAILY OU Last administered on 09:02; Start 09/04/18 at 09:00 Timolol Maleate (Timoptic 0.25% [facility]) 1 drop DAILY OU Last administered on 09:03; Start 09/04/18 at 09:00 Alprazolam (Xanax) 0.25 mg PRN Q6HRS PRN PO ANXIETY / AGITATION Last administered on 09/07/18 04:17; Start 09/03/18 at 17:15 Acetaminophen (Tylenol) 325 mg PRN Q6HRS PRN PO MILD PAIN / TEMP Last administered on 09/05/18 02:14; Start 09/03/18 at 17:15 Gadobutrol (Gadavist) 4 mmol 1X ONCE IV Last administered on 09/04/18at 09:43 ; Start 09/04/18 at 09:30; Stop 09/04/18 at 09:31; Status DC Acetaminophen (Tylenol) 325 mg 1X ONCE PO Last administered on 09/05/18 02: 43; Start 09/05/18 at 02:45; Stop 09/05/18 at 02:46; Status DC Ondansetron HCl (Zofran) 4 mg PRN Q6HRS PRN IV NAUSEA/VOMITING Last administered on 09/05/18 11:14; Start 09/05/18 at 11:00 Sucralfate (Carafate) 1 gm QIDACHS PO Last administered on 09/07/18at 08:57; Start 09/06/18 at 11:30 Non-Formulary Medication 2 ea DAILYWLUN PO Last administered on 09/06/18at 16: 25; Start 09/06/18 at 15:45; Stop 09/07/18 at 04:37; Status DC Non-Formulary Medication 2 ea DAILY PO Last administered on 09/07/18at 08:59; Start 09/07/18 at 09:00 Polyethylene Glycol (miraLAX PACKET) 17 gm PRN DAILY PRN PO CONSTIPATION, 1ST CHOICE Last administered on 09/07/18 13:17; Start 09/07/18 at 11:30 Senna/Docusate Sodium (Senna Plus) 1 tab PRN BID PRN PO CONSTIPATION, 2ND CHOICE Last administered on 09/07/18at 13:17; Start 09/07/18 at 11:30 Magnesium Hydroxide (Milk Of Magnesia) 2,400 mg PRN DAILY PRN PO CONSTIPATION; Start 09/07/18 at 15:15 Active Scripts Active Reglan (Metoclopramide Hcl) 10 Mg Tablet 1 Tab PO TID PRN Zofran (Ondansetron Hcl) 4 Mg Tablet 4 Mg PO PRN TID PRN nausea/vomiting [place] 5-325 Tablet (Acetaminophen/Hydrocodone Bitart) 1 Each Tablet 1 Tab PO PRN Q6HRS PRN Reported Cozaar (Losartan Potassium) 100 Mg Tablet 100 Mg PO DAILY Zocor (Simvastatin) 40 Mg Tablet 1 Tab PO DAILY Sucralfate 1 Gm Tablet 1 Tab PO QID Alprazolam 0.5 Mg Tablet 1 Tab PO TID Atenolol 50 Mg Tablet 1 Tab PO DAILY Protonix (Pantoprazole Sodium) 20 Mg Tablet.dr 2 Tab PO QHS Carafate (Sucralfate) 1 Gm Tablet 1 Tab PO TIDAC Lexapro (Escitalopram Oxalate) 10 Mg Tablet 2 Tab PO DAILY Latanoprost 2.5 Ml Drops 1 Drop EACHEYE QHS Combigan Eye Drops (Brimonidine Tartrate/Timolol) 5 Ml Drops 5 Ml OP DAILY Prednisone 20 Mg Tablet 10 Mg PO DAILY Amlodipine Besylate 5 Mg Tablet 5 Mg PO DAILY Vitamin D3 (Cholecalciferol (Vitamin D3)) 1,000 Unit Tablet 2,000 Unit PO DAILY Alprazolam 0.5 Mg Tablet 1 Tab PO QIDPRN PRN Aspir 81 (Aspirin) 81 Mg Tablet. 1 Tab PO DAILY Vitals/I & O Vital Sign - Last 24 Hours 09/06/18 09/06/18 09/06/18 09/06/18 16:30 19:00 19:45 23:00 Temp 97.8 97.6 97.8 97.6 Pulse 76 73 67 Resp 18 18 B/P (MAP) 133/64 (87) 108/59 (75) 114/61 (78) Pulse Ox 93 94 O2 Delivery Room Air 09/07/18 09/07/18 09/07/18 09/07/18 03:00 07:00 08:00 08:57 Temp 97.5 97.7 97.5 97.7 Pulse 65 70 70 Resp 18 20 B/P (MAP) 131/57 (81) 133/70 (91) 133/70 Pulse Ox 94 92 O2 Delivery Room Air Room Air 09/07/18 09/07/18 09/07/18 08:58 08:58 11:00 Temp 97.6 97.6 Pulse 70 70 58 Resp 20 B/P (MAP) 133/70 133/70 129/61 (83) Pulse Ox 93 O2 Delivery Room Air Intake and Output 09/06/18 09/06/18 09/07/18 15:00 23:00 07:00 Intake Total 600 ml 480 ml Balance 600 ml 480 ml Nutrition Consultation Dietary Evaluation: Recommendations by RD: Increase Calorie Intake, Protein supplementation Comments: ensure tid rec appetite stimulant Expected Outcomes/Goals: to meet > 75% est nutr needs wt gain/ maintainance Interpretation of weight loss: >5% in 1 month Malnutrition Findings: Food and Nutrition Intake (Sev: <50% est energy req 5days Weight Status: Underweight JEAN GRAY MD Sep 07, 2018 15:38
--- NOTE | 2018-09-07 16:28 | PDOC ---
PROGRESS NOTES Assessment Assessment Metabolic encephalopathy. Tremors, ET. Lung cancer. Erosive esophagitis, gastritis, duodenitis. COPD. CAD. RI. HLD. Chronic T3, T4, T5, T8, and T9 compression fractures. 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 Old right cerebellar lacunar infarct. No evidence of acute CVA and metastatic brain disease this time. RECOMMENDATIONS/PLAN: Continue ASA daily. Continue Zocor HS. Continue Xanax. Treat medical diseases. FU with PCP. FU with Oncology. EEG on 09/04/18: Normal study. HISTORY OF THE PRESENT ILLNESS: This is a 73-year-old female with history of long-standing COPD, lung cancer, coronary artery disease and other medical diseases. She recently had admissions for episodes of pancreatitis. She has tremor like movements in the past 2 weeks. She was noted confused and her daughter brought her to cardiac clinic then was admitted into hospital for further evaluation. Past Medical History Cardiovascular: RI Pulmonary: COPD Musculoskeletal: Osteoarthritis Rheumatologic: Rheumatoid arthritis ENT: Other (Glaucoma, macular degeneration) Past Surgical History Hysterectomy Family History Cancer, Coronary Artery Disease, Other (pulmonary fibrosis) Allergies Coded Allergies: azithromycin (Verified Allergy, Severe, Anaphylaxis, 09/25/14) erythromycin base (Verified Allergy, Severe, Anaphylaxis, 09/25/14) iodine (Verified Allergy, Severe, SWELLING, SOA, 09/22/14) THROAT CLOSES UP oxytetracycline (Verified Allergy, Severe, Anaphylaxis, 09/25/14) tetracycline (Verified Allergy, Severe, Anaphylaxis, 09/25/14) egg (Verified Allergy, Intermediate, hives, 09/25/14) "eggs in vaccines" codeine (Verified Allergy, Mild, 09/17/14) MEDICATIONS: Refer to MAR SOCIAL HISTORY: Lives at home. Denies current smoking, drinking, and illicit drug use. She smoked cigarettes before, but quit several months ago. REVIEW OF SYSTEMS: Constitutional: Mild malnutrition.. Head: No traumatic brain or head injury. Skin: No edema, or rash. Ear: No infection. Eyes: No vision loss or color blindness. Nose: No bleeding or purulent discharges. Hearing: Mild hearing decrease. Neck: No injury. Breast: No history of cancer, masses,or discharges. Cardiac: CAD. Pulmonary: COPD, lung cancer. GI: No GI ulcer, GI bleeding. Urinary/genital: UTI. Endocrinologic: No cousin face, craniofacial dysmorphism, polydactyly. Skeletomuscular: Generalized weakness. Neurological: see HP. Psychiatric: Denies drug use/abuse. Otherwise, not [id number] review of systems. PHYSICAL EXAMINATION: General appearance is in no acute distress. HEENT: Normocephalic and nontraumatic. Eyes, nose, ears, and throat are unremarkable. Neck is supple. No lymphadenopathy. No bruits are heard over the carotid artery. No crepitus. Cardiovascular: S1, S2, regular rate and rhythm. Pulmonary: Clear to auscultation bilaterally. Abdomen: Bowel sounds are positive. Abdomen is soft, nontender, and nondistended. Extremities: No rash, lesions, or edema. No restriction of range of motion NEUROLOGICAL EXAMINATION: Awake. Oriented to time, place and person. PERRL. EOMI. CN: no focal findings. Muscle tone: within normal. Muscle strength: 5- DTR: 2 Plantar reflex: Flexor response bilaterally Gait: Able to walk. Sensory exam: no abnormal findings. No acute cerebellar signs elicited. F-T-N test fine. Objective Objective Vital Signs Date Time Temp Pulse Resp B/P (MAP) Pulse Ox O2 Delivery O2 Flow Rate FiO2 09/07/18 11:00 97.6 58 20 129/61 (83) 93 Room Air 97.6 Intake and Output 09/07/18 07:00 Intake Total 1080 ml Balance 1080 ml Intake Oral 1080 ml # Voids 8 # Bowel Movements 1 Vitals Signs Vitals VS - Last 72 Hours, by Label Date Time Temp Pulse Resp B/P (MAP) Pulse Ox O2 Delivery O2 Flow Rate FiO2 09/07/18 11:00 97.6 58 20 129/61 (83) 93 Room Air 97.6 09/07/18 08:58 70 133/70 09/07/18 08:58 70 133/70 09/07/18 08:57 70 133/70 09/07/18 08:00 Room Air 09/07/18 07:00 97.7 70 20 133/70 (91) 92 Room Air 97.7 09/07/18 03:00 97.5 65 18 131/57 (81) 94 97.5 09/06/18 23:00 97.6 67 18 114/61 (78) 94 97.6 09/06/18 19:45 Room Air 09/06/18 19:00 97.8 73 18 108/59 (75) 93 97.8 09/06/18 16:30 76 133/64 (87) 09/06/18 15:00 98.5 74 24 93/53 (66) 93 Room Air 98.5 09/06/18 11:00 97.5 67 16 117/52 (73) 92 Room Air 97.5 09/06/18 10:04 79 151/78 09/06/18 10:04 79 151/78 09/06/18 10:04 79 151/78 09/06/18 08:00 Room Air 09/06/18 07:00 97.8 79 16 151/78 (102) 91 Room Air 97.8 Medication Medications Current Medications Magnesium Hydroxide (Milk Of Magnesia) 2,400 mg PRN DAILY PRN PO CONSTIPATION Last administered on 09/07/18at 15:42; Start 09/07/18 at 15:15 Non-Formulary Medication 2 ea DAILY PO Last administered on 09/07/18at 08:59; Start 09/07/18 at 09:00 Polyethylene Glycol (miraLAX PACKET) 17 gm PRN DAILY PRN PO CONSTIPATION, 1ST CHOICE Last administered on 09/07/18at 13:17; Start 09/07/18 at 11:30 Senna/Docusate Sodium (Senna Plus) 1 tab PRN BID PRN PO CONSTIPATION, 2ND CHOICE Last administered on 09/07/18at 13:17; Start 09/07/18 at 11:30 Comment Review of Relevant I have reviewed the following items natalia (where applicable) has been applied. DYANA PRAKASH MD Sep 07, 2018 16:28
[2018-09-07 19:59] VITALS: BP 119/65
[2018-09-07] MEDS ORDERED: SODIUM PHOSPHATES 19/7GM 133 ML ENEMA. PR ONE (20:00)
--- NOTE | 2018-09-07 21:55 | CONS ---
DATE OF CONSULTATION: 09/07/2018 ATTENDING PHYSICIAN: Dr. Smith. REASON FOR CONSULTATION: The patient seen in pulmonary consultation at the request of Dr. Smith for abnormal CT of the chest. HISTORY OF PRESENT ILLNESS: The patient is a 73-year-old female well known to me, severe COPD, severe anxiety issues, who was admitted with increasing shortness of breath and some anxiety. She underwent a repeat CT of the chest. CT of the chest reveals an enlarging right upper lobe density. The patient has a prior history of lung cancer, underwent a left upper lobectomy in 2016 and subsequently received combination chemoradiation. She had a CT dated 01/12/2018 revealing 8-mm right lower lobe nodule. She underwent PET scanning which was positive. A biopsy was performed revealing no evidence of malignancy. There was possibility of nontuberculous Mycobacterium. Considering the patient's functional status and lack of symptoms, I elected not to treat her. The patient was now readmitted. She underwent a repeat CT chest. I reviewed the CT, there is an increasing density in the right upper lobe. I reviewed the CT with Dr. Julius Briceno. The patient reports no hemoptysis. She basically is complaining of being short of breath, but is very anxious. Otherwise, no chest pain. No pressure. No fever, chills or night sweats. PAST MEDICAL HISTORY: 1. 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 Subsequent combination chemoradiation. 2. Recent 8-mm right lower lobe nodule, underwent PET scanning which was positive. Biopsy revealed no evidence of malignancy. 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 I elected not to treat the patient. She had no clinical symptoms and signs of ongoing infection. This was performed in 01/2018. 3. Rheumatoid arthritis. 4. Anxiety. 5. Depression. 6. Hypertension. 7. Hyperlipidemia. 8. Coronary artery disease, status post previous myocardial infarction and stent placement. 9. COPD. PAST SURGICAL HISTORY: As above. ALLERGIES: SHE HAS MULTIPLE ALLERGIES. PLEASE SEE THE LIST. FROM ANTIBIOTIC STANDPOINT OF VIEW, SHE IS INTOLERANT TO AZITHROMYCIN, CODEINE, ERYTHROMYCIN BASE, MORPHINE. Medication list from home was reviewed. Medication list from inpatient was reviewed. From a pulmonary standpoint of view, she was on prednisone, Xanax. REVIEW OF SYSTEMS: CONSTITUTIONAL: No fever or chills. EYES: No changes in visual acuity. HEENT: No nasal congestion, no sore throat. PULMONARY: As indicated above. CARDIOVASCULAR: No chest pain. No pressure. GASTROINTESTINAL: No nausea, vomiting, or diarrhea. GENITOURINARY: No dysuria or frequency. MUSCULOSKELETAL: No localized muscle aches or joint pain. SKIN: No new skin lesions. NEUROLOGIC: No headaches, diplopia or blurred vision. PHYSICAL EXAMINATION: GENERAL: The patient was in no respiratory distress. VITAL SIGNS: Stable. O2 saturation was greater than 92%. She appeared to be anxious and depressed, losing weight. HEENT: Eyes, the sclerae were nonicteric. NECK: Jugular venous distention was not elevated. No lymphadenopathy. CHEST: Full expansion. LUNGS: Adequate airway flow, no wheezes. CARDIOVASCULAR: Regular rate and rhythm with S1, S2, no S3. ABDOMEN: Soft, nontender, nondistended. EXTREMITIES: No clubbing, cyanosis or edema. NEUROLOGIC: The patient was awake, alert, following commands. A detailed neuro exam was not performed. LABORATORY DATA: Reviewed. White count was normal. Electrolytes were normal. BUN was slightly decreased upon admission. Toxicology screen was positive for benzodiazepines. A chest CT reviewed as indicated above. IMPRESSION: 1. Abnormal CT of the chest revealing an enlarging right upper lobe opacity. 2. History of poorly differentiated squamous carcinoma, status post left upper lobectomy subsequent combination chemo. 3. New 8-mm right lower lobe pulmonary nodule positive on PET biopsy revealed no evidence of malignancy performed in 01/2018. 4. Biopsy of the right lower lobe revealed evidence of nontuberculous Mycobacterium, the patient was not treated. She clinically did not appear to have active infection. 5. Chronic obstructive pulmonary disease with exacerbation. 6. Tobacco dependence in remission. 7. Depression and anxiety. As indicated above, the CT was reviewed with a radiologist. I went over the options of close followup versus biopsy. The patient has elected to proceed with close followup. With that being said, I do not think that she is in a functional status at this time to tolerate chemotherapy. I discussed the above with both her daughter, Angelica and Dr. Smith. From my standpoint of view, the patient is ready to be discharged. I will see her in followup in the office in 2 months with a repeat scan. I do appreciate the privilege in sharing this patient's care. PARAMJIT WELCH MD DR: Michelle JOB#: [id number] / [id number]
[2018-09-07] MEDS: SIMVASTATIN 40 MG TABLET. PO SCH (22:01)
[2018-09-07] MEDS: LATANOPROST 0.005% OPHTH SOLUTION 2.5ML BOTTLE. OU SCH (22:01)
[2018-09-07 23:59] VITALS: BP 135/64
[2018-09-08 04:59] VITALS: BP 160/70
[2018-09-08] MEDS: ALPRAZolam 0.25 MG TABLET PO PRN (05:51)
[2018-09-08 07:00] VITALS: BP 132/67
[2018-09-08] MEDS: TIMOLOL 0.25% OPHTH SOLUTION 5ML BOTTLE. OU SCH (09:50)
[2018-09-08] MEDS: BRIMONIDINE 0.2% OPHTH SOLUTION 5ML BOTTLE. OU SCH (09:50)
[2018-09-08] MEDS: SUCRALFATE 1 GM TABLET. PO SCH ×2 (09:50→11:30)
[2018-09-08] MEDS: LOSARTAN POTASSIUM 50 MG TABLET. PO SCH (09:51)
[2018-09-08] MEDS: ASPIRIN ENTERIC COATED 81 MG TABLET.DR. PO SCH (09:51)
[2018-09-08] MEDS: amLODIPine BESYLATE 5 MG TABLET PO SCH (09:52)
[2018-09-08] MEDS: predniSONE 10 MG TABLET PO SCH (09:52)
[2018-09-08] MEDS: ALPRAZolam 0.5 MG TABLET PO SCH ×2 (09:53→14:07)
[2018-09-08] MEDS: CHOLECALCIFEROL (VITAMIN D3) 1,000 UNIT TABLET PO SCH (09:53)
[2018-09-08] MEDS: [UNRECOGNIZED DRUG - REMARK] PO SCH (09:53)
[2018-09-08] MEDS: ATENOLOL 50 MG TABLET. PO SCH (09:53)
[2018-09-08 11:00] VITALS: BP 113/61
[2018-09-08] MEDS: IV 1/2 NORMAL SALINE 1,000 ML IV SCH (11:40)
--- NOTE | 2018-09-08 11:45 | PDOC ---
PULMONARY PROGRESS NOTES Subjective PT NOT MORE SOA Vitals Vital Signs Date Time Temp Pulse Resp B/P (MAP) Pulse Ox O2 Delivery O2 Flow Rate FiO2 09/08/18 11:00 97.6 64 16 113/61 (78) 93 Room Air 97.6 ROS: No Nausea, No Chest Pain, No Abdominal Pain, No Increase Cough Lungs: Clear Cardiovascular: S1 Abdomen: Soft Neuro Exam: Alert Extremities: No Edema Skin: Warm Medications Active Scripts Medications Dose Route/Sig Max Daily Dose Days Date Category Dose Instructions Cozaar (Losartan Potassium) 100 Mg Tablet 100 Mg PO DAILY 09/03/18 Reported Zocor (Simvastatin) 40 Mg Tablet 1 Tab PO DAILY 09/03/18 Reported Sucralfate 1 Gm Tablet 1 Tab PO QID 09/03/18 Reported Alprazolam 0.5 Mg Tablet 1 Tab PO TID 09/03/18 Reported Atenolol 50 Mg Tablet 1 Tab PO DAILY 09/03/18 Reported Protonix (Pantoprazole Sodium) 20 Mg Tablet.dr 2 Tab PO QHS 07/22/18 Reported Carafate (Sucralfate) 1 Gm Tablet 1 Tab PO TIDAC 07/22/18 Reported Reglan (Metoclopramide Hcl) 10 Mg Tablet 1 Tab PO TID PRN 07/18/18 Rx Zofran (Ondansetron Hcl) 4 Mg Tablet 4 Mg PO PRN TID PRN 07/18/18 Rx nausea/vomiting Lexapro (Escitalopram Oxalate) 10 Mg Tablet 1 Tab PO DAILYWLUN 07/02/18 Reported [place] 5-325 Tablet (Acetaminophen/Hydrocodone Bitart) 1 Each Tablet 1 Tab PO PRN Q6HRS PRN 07/02/18 Rx Latanoprost 2.5 Ml Drops 1 Drop EACHEYE QHS 06/06/18 Reported Combigan Eye Drops (Brimonidine Tartrate/Timolol) 5 Ml Drops 5 Ml OP DAILY 06/06/18 Reported Prednisone 20 Mg Tablet 10 Mg PO DAILY 04/16/18 Reported Amlodipine Besylate 5 Mg Tablet 5 Mg PO DAILY 03/07/16 Reported Vitamin D3 (Cholecalciferol (Vitamin D3)) 1,000 Unit Tablet 2,000 Unit PO DAILY 03/07/16 Reported Alprazolam 0.5 Mg Tablet 1 Tab PO QIDPRN PRN 09/17/14 Reported Aspir 81 (Aspirin) 81 Mg Tablet.dr [place] Tab PO DAILY 09/17/14 Reported Impression . PULMONARY NODULE RIGHT COPD ANCIETY S/P LOBECTOMY ON LEFT FOR LUNG CA Plan . FOLLOW UP WITH ME IN OCT SPOKE WITH DAUGHTER THIS AM AND DR GRAY WENT OVER THE OPTIONS PT NOT WANTING BIOPSY AT THIS TIME I CONCUR WITH WAITING OK TO D/C FOLLOW UP IN OFFICE IN [address] IN 2-3 MONTHS THANKS PARAMJIT WELCH MD Sep 08, 2018 11:45
--- NOTE | 2018-09-08 14:08 | PDOC3 ---
*Discharge Summary* Date of Admission: Sep 03, 2018 Date of Discharge: Sep 08, 2018 Admitting Diagnosis Anxious in mental status, confusion Final Diagnosis Changes in mental status, confusion Encephalopathy of unknown etiology Long CVA Right lung nodules COPD Severe deconditioning Recent pancreatitis, abdominal pain, constipation CONSULTS Neurology GI Pulmonary Brief Hospital Course This patient is a very pleasant 73-year-old lady with a known history of COPD and a long cancer that has coronary artery disease and has been deteriorating at home. The family brought her in because she was quite confused and complaining of pain to the abdomen and to her back. She had a recent admissions for a pancreatitis. After she was admitted I consulted the neurologist to see her and the saw the patient and ordered several tests please see the chart for those reports as well as the consultation from the neurologist. Because of the patient's abdominal complaints and the recent pancreatitis I consulted the airborne electronics analyst who saw the patient and also order some tests. Please see the chart for the results of those tests and the recommendations of the airborne electronics analyst. Because of the history of a long CVA I wanted to see if there were any changes while the patient was here in the hospital since she was short of breath so a CAT scan was obtained and I found that the nodules that were in the right lung not in the left where the tumor had been appear to have increased incised. The pulmonologists were consulted and they reviewed the tests and saw the patient. The patient's progression in the hospital was rather slow but her confusion gradually subsided my opinion was that I think she was taking medications spatially the Xanax at home because she lives alone and was taken at over and over forgetting that she had already taken it and due to this she developed the encephalopathy and confusion. On the appropriate dosing of the setbacks in the hospital she appeared to be doing well. She was very deconditioned and is gradually getting better and is now able to stand up on walk on her own. I recommended that the patient did not go home on her own again and the family is taking her to their house she is going to move with her daughter. In view of this he was decided to discharge the patient today she appears to be in a more stable condition and we've discussed the situation as well as medications and follow-up. The patient understands that she cannot continue to live alone. She is to see me in 2 weeks in the office. Please see the MRAD for the list of medications. Patient discharged home Disposition/Orders: D/C to Home CONDITION AT DISCHARGE: Improved, Stable Home Meds Active Scripts Metoclopramide Hcl (REGLAN) 10 Mg Tablet, 1 TAB PO TID PRN for NAUSEA/VOMITING, #30 TAB Prov:DEANDRA KING MD 07/18/18 Ondansetron Hcl (ZOFRAN) 4 Mg Tablet, 4 MG PO PRN TID PRN for NAUSEA/VOMITING, # 15 nausea/vomiting Prov:DEANDRA KING MD 07/18/18 Hydrocodone/Apap 5-325 (NORCO 5-325 TABLET) 1 Each Tablet, 1 TAB PO PRN Q6HRS PRN for PAIN, #20 TAB 0 Refills Prov:SCOTT PINEDO [employer]NER 07/02/18 Reported Medications Losartan Potassium (COZAAR) 100 Mg Tablet, 100 MG PO DAILY, TAB 09/03/18 Simvastatin (ZOCOR) 40 Mg Tablet, 1 TAB PO DAILY, #90 TAB 1 Refill 09/03/18 Sucralfate (SUCRALFATE) 1 Gm Tablet, 1 TAB PO QID, #120 TAB 3 Refills 09/03/18 Alprazolam (ALPRAZOLAM) 0.5 Mg Tablet, 1 TAB PO TID, #90 TAB 09/03/18 Atenolol (ATENOLOL) 50 Mg Tablet, 1 TAB PO DAILY, #30 TAB 5 Refills 09/03/18 Pantoprazole Sodium (PROTONIX) 20 Mg Tablet.dr, 2 TAB PO QHS, #30 TAB 07/22/18 Sucralfate (CARAFATE) 1 Gm Tablet, 1 TAB PO TIDAC, #120 TAB 1 Refill 07/22/18 Escitalopram Oxalate (LEXAPRO) 10 Mg Tablet, 2 TAB PO DAILY, #90 TAB 3 Refills 07/02/18 Latanoprost (LATANOPROST) 2.5 Ml Drops, 1 DROP EACHEYE QHS, #7.5 ML 3 Refills 06/06/18 Brimonidine Tartrate/Timolol (COMBIGAN EYE DROPS) 5 Ml Drops, 5 ML OP DAILY, DROP 06/06/18 Prednisone (PREDNISONE) 20 Mg Tablet, 10 MG PO DAILY, TAB 04/16/18 Amlodipine Besylate (AMLODIPINE BESYLATE) 5 Mg Tablet, 5 MG PO DAILY, TAB 03/07/16 Cholecalciferol (Vitamin D3) (VITAMIN D3) 1,000 Unit Tablet, 2000 UNIT PO DAILY 03/07/16 Alprazolam (ALPRAZOLAM) 0.5 Mg Tablet, 1 TAB PO QIDPRN PRN for ANXIETY / AGITATION 09/17/14 Aspirin (ASPIR 81) 81 Mg Tablet.dr, 1 TAB PO DAILY 09/17/14 Discontinued Reported Medications Simvastatin (SIMVASTATIN) 40 Mg Tablet, 1 TAB PO QHS, #30 TAB 5 Refills 04/16/18 Atenolol (ATENOLOL) 50 Mg Tablet, 1 TAB PO BID 09/17/14 Losartan Potassium (LOSARTAN POTASSIUM) 100 Mg Tablet, 1 TAB PO DAILY 09/17/14 Scheduled Alprazolam (Alprazolam), 1 TAB PO TID, (Reported) Amlodipine Besylate (Amlodipine Besylate), 5 MG PO DAILY, (Reported) Aspirin (Aspir 81), 1 TAB PO DAILY, (Reported) Atenolol (Atenolol), 1 TAB PO DAILY, (Reported) Brimonidine Tartrate/Timolol (Combigan Eye Drops), 5 ML OP DAILY, (Reported) Cholecalciferol (Vitamin D3) (Vitamin D3), 2,000 UNIT PO DAILY, (Reported) Escitalopram Oxalate (Lexapro), 2 TAB PO DAILY, (Reported) Latanoprost (Latanoprost), 1 DROP EACHEYE QHS, (Reported) Losartan Potassium (Cozaar), 100 MG PO DAILY, (Reported) Pantoprazole Sodium (Protonix), 2 TAB PO QHS, (Reported) Prednisone (Prednisone), 10 MG PO DAILY, (Reported) Simvastatin (Zocor), 1 TAB PO DAILY, (Reported) Sucralfate (Carafate), 1 TAB PO TIDAC, (Reported) Sucralfate (Sucralfate), 1 TAB PO QID, (Reported) Scheduled PRN Alprazolam (Alprazolam), 1 TAB PO QIDPRN PRN for ANXIETY / AGITATION, (Reported) Hydrocodone/Apap 5-325 ([place] 5-325 Tablet), 1 TAB PO PRN Q6HRS PRN for PAIN Metoclopramide Hcl (Reglan), 1 TAB PO TID PRN for NAUSEA/VOMITING Ondansetron Hcl (Zofran), 4 MG PO PRN TID PRN for NAUSEA/VOMITING Discontinued Medications Atenolol (Atenolol), 1 TAB PO BID, (Reported) Losartan Potassium (Losartan Potassium), 1 TAB PO DAILY, (Reported) Simvastatin (Simvastatin), 1 TAB PO QHS, (Reported) Time Spent Total time spent with patient [] minutes for coordination of care, counseling, and education. JEAN GRAY MD Sep 08, 2018 14:08
--- NOTE | 2018-09-08 16:03 | PDOC ---
PROGRESS NOTES Assessment Assessment Metabolic encephalopathy. Tremors, ET. Lung cancer. Erosive esophagitis, gastritis, duodenitis. COPD. CAD. FL. HLD. Chronic T3, T4, T5, T8, and T9 compression fractures. 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 Old right cerebellar lacunar infarct. No evidence of acute CVA and metastatic brain disease this time. RECOMMENDATIONS/PLAN: Continue ASA daily. Continue Zocor HS. Continue Xanax. Treat medical diseases. FU with PCP. FU with Oncology. EEG on 09/04/18: Normal study. HISTORY OF THE PRESENT ILLNESS: This is a 73-year-old female with history of long-standing COPD, lung cancer, coronary artery disease and other medical diseases. She recently had admissions for episodes of pancreatitis. She has tremor like movements in the past 2 weeks. She was noted confused and her daughter brought her to cardiac clinic then was admitted into hospital for further evaluation. Past Medical History Cardiovascular: FL Pulmonary: COPD Musculoskeletal: Osteoarthritis Rheumatologic: Rheumatoid arthritis ENT: Other (Glaucoma, macular degeneration) Past Surgical History Hysterectomy Family History Cancer, Coronary Artery Disease, Other (pulmonary fibrosis) Allergies Coded Allergies: azithromycin (Verified Allergy, Severe, Anaphylaxis, 09/25/14) erythromycin base (Verified Allergy, Severe, Anaphylaxis, 09/25/14) iodine (Verified Allergy, Severe, SWELLING, SOA, 09/22/14) THROAT CLOSES UP oxytetracycline (Verified Allergy, Severe, Anaphylaxis, 09/25/14) tetracycline (Verified Allergy, Severe, Anaphylaxis, 09/25/14) egg (Verified Allergy, Intermediate, hives, 09/25/14) "eggs in vaccines" codeine (Verified Allergy, Mild, 09/17/14) MEDICATIONS: Refer to MAR SOCIAL HISTORY: Lives at home. Denies current smoking, drinking, and illicit drug use. She smoked cigarettes before, but quit several months ago. REVIEW OF SYSTEMS: Constitutional: Mild malnutrition.. Head: No traumatic brain or head injury. Skin: No edema, or rash. Ear: No infection. Eyes: No vision loss or color blindness. Nose: No bleeding or purulent discharges. Hearing: Mild hearing decrease. Neck: No injury. Breast: No history of cancer, masses,or discharges. Cardiac: CAD. Pulmonary: COPD, lung cancer. GI: No GI ulcer, GI bleeding. Urinary/genital: UTI. Endocrinologic: No cousin face, craniofacial dysmorphism, polydactyly. Skeletomuscular: Generalized weakness. Neurological: see HP. Psychiatric: Denies drug use/abuse. Otherwise, not [id number] review of systems. PHYSICAL EXAMINATION: General appearance is in no acute distress. HEENT: Normocephalic and nontraumatic. Eyes, nose, ears, and throat are unremarkable. Neck is supple. No lymphadenopathy. No bruits are heard over the carotid artery. No crepitus. Cardiovascular: S1, S2, regular rate and rhythm. Pulmonary: Clear to auscultation bilaterally. Abdomen: Bowel sounds are positive. Abdomen is soft, nontender, and nondistended. Extremities: No rash, lesions, or edema. No restriction of range of motion NEUROLOGICAL EXAMINATION: Awake. Oriented to time, place and person. PERRL. EOMI. CN: no focal findings. Muscle tone: within normal. Muscle strength: 5- DTR: 2 Plantar reflex: Flexor response bilaterally Gait: Able to walk. Sensory exam: no abnormal findings. No acute cerebellar signs elicited. F-T-N test fine. Objective Objective Vital Signs Date Time Temp Pulse Resp B/P (MAP) Pulse Ox O2 Delivery O2 Flow Rate FiO2 09/08/18 11:00 97.6 64 16 113/61 (78) 93 Room Air 97.6 Intake and Output 09/08/18 07:00 Intake Total 540 ml Balance 540 ml Intake Oral 540 ml # Voids 3 # Bowel Movements 3 Vitals Signs Vitals VS - Last 72 Hours, by Label Date Time Temp Pulse Resp B/P (MAP) Pulse Ox O2 Delivery O2 Flow Rate FiO2 09/08/18 11:00 97.6 64 16 113/61 (78) 93 Room Air 97.6 09/08/18 09:53 69 132/67 09/08/18 09:52 69 132/67 09/08/18 09:51 69 132/67 09/08/18 08:00 Room Air 09/08/18 07:00 97.9 69 16 132/67 (88) 91 Room Air 97.9 09/08/18 04:59 97.5 76 19 160/70 (100) 93 Room Air 97.5 09/08/18 03:59 Room Air 09/07/18 23:59 97.7 67 20 135/64 (87) 94 Room Air 97.7 09/07/18 20:05 Room Air 09/07/18 19:59 97.5 72 21 119/65 (83) 96 Room Air 97.5 09/07/18 15:00 97.5 69 19 137/65 (89) 93 Room Air 97.5 09/07/18 11:00 97.6 58 20 129/61 (83) 93 Room Air 97.6 09/07/18 08:58 70 133/70 09/07/18 08:58 70 133/70 09/07/18 08:57 70 133/70 09/07/18 08:00 Room Air 09/07/18 07:00 97.7 70 20 133/70 (91) 92 Room Air 97.7 Medication Medications Current Medications Sodium Monofluorophosphate (Fleet Adult) 133 ml 1X ONCE NC Last administered on 09/07/18at 21:01; Start 09/07/18 at 20:00; Stop 09/07/18 at 20:01; Status DC Comment Review of Relevant I have reviewed the following items natalia (where applicable) has been applied. DYANA PRAKASH MD Sep 08, 2018 16:03
== END 2018-09-08 15:27 | disposition home or self-care (01) | DRG 71 ==
LOC: 5 SOUTH 14:25
PROVIDERS: ADMIT Internal Medicine Cardiovascular Disease; ATTEND Internal Medicine Cardiovascular Disease
DX: G93.41 Metabolic encephalopathy (principal); J44.1 Chronic obstructive pulmonary disease with (acute) exacerbation; C34.90 Malignant neoplasm of unspecified part of unspecified bronchus or lung; K22.10 Ulcer of esophagus without bleeding; M48.54XA Collapsed vertebra, not elsewhere classified, thoracic region, initial encounter for fracture; E44.1 Mild protein-calorie malnutrition; Z68.1 Body mass index [BMI] 19.9 or less, adult; K31.84 Gastroparesis; E78.5 Hyperlipidemia, unspecified; F17.201 Nicotine dependence, unspecified, in remission; F32.9 Major depressive disorder, single episode, unspecified; F41.9 Anxiety disorder, unspecified; G89.29 Other chronic pain; H35.30 Unspecified macular degeneration; H40.9 Unspecified glaucoma; I10 Essential (primary) hypertension; I25.10 Atherosclerotic heart disease of native coronary artery without angina pectoris; I25.2 Old myocardial infarction; K21.9 Gastro-esophageal reflux disease without esophagitis; K29.70 Gastritis, unspecified, without bleeding; K29.80 Duodenitis without bleeding; K57.90 Diverticulosis of intestine, part unspecified, without perforation or abscess without bleeding; K59.00 Constipation, unspecified; K76.0 Fatty (change of) liver, not elsewhere classified; M19.90 Unspecified osteoarthritis, unspecified site; M06.9 Rheumatoid arthritis, unspecified; Z79.52 Long term (current) use of systemic steroids; T42.4X5A Adverse effect of benzodiazepines, initial encounter; Y92.89 Other specified places as the place of occurrence of the external cause; Z79.82 Long term (current) use of aspirin; Z82.49 Family history of ischemic heart disease and other diseases of the circulatory system; Z85.118 Personal history of other malignant neoplasm of bronchus and lung; Z86.73 Personal history of transient ischemic attack (TIA), and cerebral infarction without residual deficits; Z90.710 Acquired absence of both cervix and uterus; Z91.041 Radiographic dye allergy status; Z95.5 Presence of coronary angioplasty implant and graft; Z90.2 Acquired absence of lung [part of]; Z88.6 Allergy status to analgesic agent; Z88.1 Allergy status to other antibiotic agents; Z91.012 Allergy to eggs; Z88.8 Allergy status to other drugs, medicaments and biological substances; Z91.018 Allergy to other foods; Z60.2 Problems related to living alone
CPT/HCPCS: 36415; 70450; 70553; 71250; 80053; 80307; 84443; 85007; 85025; 85651; 95816; A9585; J2405; J7512; G0479